=== PATIENT | female | born 2000 | race African-American/Black ===

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

== ENCOUNTER → 2020-03-06 | Outpatient (CLI) | payer OTHER ==
[~2020-03-06] MED LIST: AMOX1TAB61 PO
--- NOTE | 2020-03-06 16:37 | RAD ---
EXAM: Ultrasound OB Greater than 14 weeks INDICATION: Reason: SMALL FOR DATES / Spl. Instructions: / History: TECHNIQUE: Real-time obstetrical ultrasound was performed with permanent freeze-frame documentation. COMPARISON: 12/29/2019 OB ultrasound FINDINGS: POSITION: Cephalic HEART RATE: 127 bpm STEPHANIE: 10.4 cm PLACENTA: Posterior. Not low-lying CERVICAL LENGTH: 4.7 cm MATERNAL UTERUS: Unremarkable. MATERNAL ADNEXA: Unremarkable. AGE/DATES: Gestational Age by LMP: 23 weeks 0 days Gestation Age by US: 23 weeks 1 day EDC by LMP: 07/03/2020 EDC by US: 07/02/2020 WEIGHT: 534 grams +/- 79 grams PERCENTILE WEIGHT: 37% BIOMETRIC PARAMETERS: BPD: 5.9 cm corresponding with 24 weeks 0 days HC: 21.3 cm corresponding with 23 weeks 3 days AC: 18.1 cm corresponding with 23 weeks 0 days FL: 3.8 cm corresponding with 22 weeks 2 days ANATOMY: CARDIAC: Normal four chamber heart. Normal right and left ventricular outflow tracts. UMBILICAL CORD: Normal 3 vessel cord. Normal cord insertion. BRAIN: Unremarkable. NOSE/LIPS: Unremarkable. SPINE: Unremarkable. EXTREMITIES: Unremarkable. STOMACH: Unremarkable. KIDNEYS: Unremarkable. BLADDER: Unremarkable. IMPRESSION: Normal OB ultrasound demonstrating a single viable fetus in cephalic position. Estimated gestational age of 23 weeks and 1 day and EDC of July 02, 2020. Electronically signed by: Deangelo Mensah MD (03/06/2020 4:34 PM) [id number]
== END | disposition home or self-care (01) ==
LOC: US 11:40
PROVIDERS: ATTEND Family Medicine
DX: Z34.92 Encounter for supervision of normal pregnancy, unspecified, second trimester (principal); Z3A.23 23 weeks gestation of pregnancy
CPT/HCPCS: 76805

== ENCOUNTER 2020-06-17 05:32 | Inpatient (IN) | payer OTHER ==
[~2020-06-17] VITALS: Ht 167.6 cm; Wt 54.9 kg
[2020-06-17] MEDS ORDERED: IV RINGERS,LACTATED 1000ML 1,000 ML IV PRN (05:45)
[2020-06-17] MEDS ORDERED: 0.9 % SODIUM CHLORIDE 10 ML DISP.SYRIN. IV PRN (05:45)
[2020-06-17] MEDS ORDERED: OXYTOCIN 30 UNIT/500 ML PREMIX 500 ML IV PRN ×2 (05:45)
[2020-06-17] MEDS ORDERED: fentaNYL PF VIAL 100 MCG/2 ML VIAL IVP PRN (05:45)
[2020-06-17] MEDS ORDERED: IBUPROFEN 400 MG TABLET. PO PRN (05:45)
[2020-06-17] MEDS ORDERED: TERBUTALINE 1 MG/ML VIAL. SQ PRN (05:45)
[2020-06-17] MEDS ORDERED: LIDOCAINE 1% PF 30 ML VIAL. INJ PRN (05:45)
[2020-06-17] MEDS ORDERED: ACETAMINOPHEN 325 MG TABLET. PO PRN (05:45)
[2020-06-17] MEDS ORDERED: ONDANSETRON PF 4 MG/2 ML VIAL. IVP PRN (05:45)
[2020-06-17] MEDS ORDERED: BUTORPHANOL 2 MG/ML VIAL. IVP PRN ×2 (05:45)
[2020-06-17 06:15] VITALS: BP 115/70
[2020-06-17 07:10] LABS: BASO # 0.1 x10^3/uL (0.0-0.2); BASO % 1 % (0-3); EOS # 0.2 x10^3/uL (0.0-0.7); EOS % 2 % (0-3); HEMATOCRIT 31.8 % (36.0-47.0); HEMOGLOBIN 10.6 g/dL (12.0-15.5); LYMPH # 2.3 x10^3/uL (1.0-4.8); LYMPH % 27 % (24-48); MEAN CORPUSCULAR HEMOGLOBIN 30 pg (25-35); MEAN CORPUSCULAR HGB CONC 33 g/dL (31-37); MEAN CORPUSCULAR VOLUME 89 fL (79-100); MONO # 0.8 x10^3/uL (0.0-1.1); MONO % 9 % (0-9); NEUT # 5.2 x10^3/uL (1.8-7.7); NEUT % 61 % (31-73); PLATELET COUNT 250 x10^3/uL (140-400); RED BLOOD COUNT 3.58 x10^6/uL (3.50-5.40); RED CELL DISTRIBUTION WIDTH 14.4 % (11.5-14.5); WHITE BLOOD COUNT 8.5 x10^3/uL (4.0-11.0)
[2020-06-17 07:17] LABS: BILIRUBIN,URINE NEGATIVE (NEG); CLARITY,URINE CLEAR; COLOR,URINE YELLOW; NITRITE,URINE NEGATIVE (NEG); PROTEIN,URINE NEGATIVE (NEG-TRACE)
[2020-06-17 07:33] LABS: BACTERIA,URINE FEW /HPF (0-FEW); RBC,URINE 0 /HPF (0-2); WBC,URINE 0 /HPF (0-4)
--- NOTE | 2020-06-17 08:27 | RAD ---
Biophysical profile: Clinical indications: Decreased movement.. Findings: A single intrauterine is present in the cephalic position. heart rate is 14 3. breathing movements: 2. motion: 2. tone: 2. Amniotic fluid volume: 2. Therefore, the biophysical profile score is 8 out of 8. Cervix-cannot visualize. STEPHANIE using the 4 quadrant method is 9.3 cm. Average gestational age is 37 weeks 5 days with an EDC of July 03, 2020. Estimated weight is 7 pounds and 7 ounces. Grade 3 anterior and fundal and right lateral placenta is seen. Impression: Biophysical profile score is 8 out of 8. Electronically signed by: Jian Laboy MD (06/17/2020 8:24 AM) [id number]
[2020-06-17 10:13] LABS: % EOS 3 % (0-5); % LYMPHS 27 % (24-48); % MONOS 4 % (0-10); % MYELOS 1 % (0-0); % SEGS 65 % (35-66); PLT ESTIMATE ADEQUATE (ADEQUATE)
--- NOTE | 2020-06-17 11:46 | RAD ---
EXAM: Ultrasound OB Greater than 14 weeks INDICATION: Reason: SIZE/DATES / Spl. Instructions: / History: TECHNIQUE: Real-time obstetrical ultrasound was performed with permanent freeze-frame documentation. COMPARISON: None. FINDINGS: POSITION: Cephalic HEART RATE: 143 bpm STEPHANIE: 9.3 cm PLACENTA: Anterior CERVICAL LENGTH: Not well assessed MATERNAL UTERUS: Unremarkable. MATERNAL ADNEXA: Unremarkable. AGE/DATES: Gestational Age by LMP: 37 weeks 5 days Gestation Age by US: 37 weeks 5 days EDC by LMP: July 03, 2020 EDC by US: July 03, 2020 WEIGHT: 3378 grams +/- 500 grams PERCENTILE WEIGHT: 61% BIOMETRIC PARAMETERS: BPD: 9.5 cm corresponding with 38 weeks 6 days HC: 32.7 cm corresponding with 37 weeks 1 day AC: 34.9 cm corresponding with 38 weeks 5 days FL: 7.1 cm corresponding with 36 weeks 2 days ANATOMY: anatomy not assessed at this visit. IMPRESSION: OB ultrasound demonstrating a single viable fetus in cephalic position at 37 weeks 5 days and an zackary mated delivery date of July 03, 2020. Electronically signed by: Deangelo Mensah MD (06/17/2020 11:44 AM) [id number]
--- NOTE | 2020-06-17 19:15 | NUR ---
Patient admitted to [facility] L&D for suspected IUGR. After MD reviewed pt. previous sonograms it was found that pt. is on track with a due date of 07/02/20. An NST and BPP was completed. Pt. was discharged with passing NST and BPP to follow up with Dr. Burnett on 06/30/20.
--- NOTE | 2020-07-03 13:19 | PDOC1 ---
OB - History Hx of Present Care: Good Care Ultrasounds: Normal mid trimester US Obstetrical Complications: None Medical Complications: None Past Family/Social History * Past Medical, Surgical, Family and Obstetric Histories reviewed from chart. Rubella: Immune RPR/VDRL: Negative GBS Status: Negative HBsAG: Negative OB - Chief Complaint & HPI Date of Admission: Date of Admission: Jun 17, 2020 at 05:32 This is a short stay summary dictation. This patient was originally scheduled for induction with due date by last menstrual period of 06/19/2020 but during evaluation it was discovered that she had an early sonogram confirming her due date to be July 03, 2020. Due to these findings patient's induction was canceled and follow-up evaluations were planned. Patient did have a biophysical profile with sonogram which was normal 8 out of 8. During hospital evaluation patient was discovered to be COVID-19 positive. Patient was discharged to follow-up in office for continued care. Chief Complaint/History : 1 Para: 0 EDC: Jul 03, 2020 Reason for admission: induction of labor Admission Nurse Assessment Rev: Yes OB - Admission Exam Physical Exam HEENT: Normal Heart: Regular Rate Lungs: Clear Abdomen: Gravid Reflexes: Normal Cervical Dilatation: 2cm Effacement: 50% Station: -2 Membranes: Intact Accelerations: Accelerations Present Decelerations: No decelerations Residential Variability: Moderate SHAYE READ MD Jul 03, 2020 13:19
== END 2020-06-17 09:00 | disposition home or self-care (01) | DRG 831 ==
LOC: 3 SO LND 05:32
PROVIDERS: ADMIT Family Medicine; ATTEND Family Medicine
DX: O98.513 Other viral diseases complicating pregnancy, third trimester (principal); U07.1 COVID-19; Z3A.37 37 weeks gestation of pregnancy
CPT/HCPCS: 36415; 59025; 76815; 76819; 81001; 85007; 85025; 86592; 86850; 86900; 86901; 87086; 87426; G0378

== ENCOUNTER 2020-06-24 22:24 | Observation (INO) | payer OTHER ==
[2020-06-24] MEDS ORDERED: IV RINGERS,LACTATED 1000ML 1,000 ML IV PRN (22:45)
[2020-06-24] MEDS ORDERED: ACETAMINOPHEN 325 MG TABLET. PO PRN (22:45)
[2020-06-24] MEDS ORDERED: ONDANSETRON PF 4 MG/2 ML VIAL. IVP PRN (22:45)
[2020-06-24 23:01] LABS: BILIRUBIN,URINE NEGATIVE (NEG); CLARITY,URINE CLEAR; COLOR,URINE YELLOW; NITRITE,URINE NEGATIVE (NEG); PROTEIN,URINE NEGATIVE (NEG-TRACE); UROBILINOGEN,URINE 0.2 mg/dL (0.2 mg/dL)
[2020-06-24 23:02] LABS: RBC,URINE 0 /HPF (0-2)
[2020-06-24 23:03] LABS: BACTERIA,URINE 0 /HPF (0-FEW)
[2020-06-24 23:04] LABS: BARBITURATES NEG (NEG); BENZODIAZEPINES NEG (NEG); CANNABINOIDS NEG (NEG); COCAINE NEG (NEG); METHADONE NEG (NEG); OPIATES NEG (NEG); PHENCYCLIDINE NEG (NEG)
[2020-06-24 23:06] LABS: AMPHETAMINE/METHAMPHETAMINE NEG (NEG)
[2020-06-25] MEDS ORDERED: guaiFENesin DM 200MG/20MG 10 ML SYRUP PO PRN (00:30)
== END 2020-06-25 01:00 | disposition home or self-care (01) ==
LOC: 3 SO LND 22:24
PROVIDERS: ADMIT Family Medicine; ATTEND Family Medicine
DX: O62.9 Abnormality of forces of labor, unspecified (principal); O21.2 Late vomiting of pregnancy; Z3A.38 38 weeks gestation of pregnancy; Z79.899 Other long term (current) drug therapy
CPT/HCPCS: 59025; 80307; 81001; G0378; G0379

== ENCOUNTER 2020-06-27 21:09 | Inpatient (IN) | payer OTHER ==
[~2020-06-27] VITALS: Ht 167.6 cm; Wt 53.5 kg
[2020-06-27] MEDS ORDERED: BUTORPHANOL 2 MG/ML VIAL. IVP PRN (21:30)
[2020-06-27] MEDS ORDERED: fentaNYL PF VIAL 100 MCG/2 ML VIAL IVP PRN (21:30)
[2020-06-27] MEDS ORDERED: OXYTOCIN 30 UNIT/500 ML PREMIX 500 ML IV PRN (21:30)
[2020-06-27] MEDS ORDERED: 0.9 % SODIUM CHLORIDE 10 ML DISP.SYRIN. IV PRN (21:30)
[2020-06-27] MEDS ORDERED: ACETAMINOPHEN 325 MG TABLET. PO PRN (21:30)
[2020-06-27] MEDS ORDERED: TERBUTALINE 1 MG/ML VIAL. SQ PRN (21:30)
[2020-06-27] MEDS ORDERED: LIDOCAINE 1% PF 30 ML VIAL. INJ PRN (21:30)
[2020-06-27] MEDS ORDERED: ONDANSETRON PF 4 MG/2 ML VIAL. IVP PRN (21:30)
[2020-06-27] MEDS ORDERED: IV RINGERS,LACTATED 1000ML 1,000 ML IV PRN (21:30)
[2020-06-27] MEDS ORDERED: IBUPROFEN 400 MG TABLET. PO PRN (21:30)
[2020-06-27] MEDS: IV RINGERS,LACTATED 1000ML 1,000 ML IV PRN (21:46)
[2020-06-27 21:57] LABS: BASO % 1 % (0-3); EOS % 0 % (0-3); HEMATOCRIT 40.5 % (36.0-47.0); HEMOGLOBIN 13.5 g/dL (12.0-15.5); LYMPH # 1.4 x10^3/uL (1.0-4.8); LYMPH % 15 % (24-48); MEAN CORPUSCULAR HEMOGLOBIN 30 pg (25-35); MEAN CORPUSCULAR HGB CONC 33 g/dL (31-37); MEAN CORPUSCULAR VOLUME 90 fL (79-100); MONO # 1.4 x10^3/uL (0.0-1.1); MONO % 14 % (0-9); NEUT # 6.8 x10^3/uL (1.8-7.7); NEUT % 71 % (31-73); PLATELET COUNT 259 x10^3/uL (140-400); RED BLOOD COUNT 4.51 x10^6/uL (3.50-5.40); RED CELL DISTRIBUTION WIDTH 15.3 % (11.5-14.5); WHITE BLOOD COUNT 9.6 x10^3/uL (4.0-11.0)
[2020-06-27 22:47] LABS: % BANDS 12 % (0-9); % LYMPHS 15 % (24-48); % METAS 2 % (0-0); % MONOS 12 % (0-10); % SEGS 59 % (35-66); NUCLEATED RBC 2; PLT ESTIMATE ADEQUATE (ADEQUATE)
[2020-06-27 22:48] LABS: BURR CELLS PRESENT
--- NOTE | 2020-06-27 23:38 | PDOC1 ---
OB - History Hx of Present Care: Good Care Ultrasounds: Normal mid trimester US Obstetrical Complications: Other (Covid 19 + 06/17/2020) Medical Complications: None Past Family/Social History * Past Medical, Surgical, Family and Obstetric Histories reviewed from chart. Blood Type: A+ Rubella: Immune RPR/VDRL: Negative GBS Status: Negative HBsAG: Negative OB - Chief Complaint & HPI Date of Admission: Date of Admission: Jun 27, 2020 at 21:28 Chief Complaint/History : 1 Para: 0 EDC: Jul 02, 2020 Reason for admission: active labor Admission Nurse Assessment Rev: Yes OB - Admission Exam Physical Exam HEENT: Normal Heart: Regular Rate Lungs: Clear Abdomen: Gravid Reflexes: Normal Cervical Dilatation: 5cm Effacement: 100% Station: -1 Membranes: Intact Amniotic Fluid: Clear Heart Rate: Normal Accelerations: Accelerations Present Decelerations: Early decelerations Short Term Variability: Present Multicultural Internship Variability: Moderate Contractions on Admission: < 5 Minutes Apart Intensity: SHAYE Durbin MD Jun 27, 2020 23:38
[2020-06-28] VITALS (24 sets, daily range): BP systolic 103–138; BP diastolic 66–93
[2020-06-28] MEDS ORDERED: MAG HYDROX/ALUMINUM HYD/SIMETH 30 ML ORAL.SUSP PO PRN (00:45)
[2020-06-28] MEDS ORDERED: MAGNESIUM HYDROXIDE 2,400 MG/30 ML ORAL.SUSP. PO PRN (00:45)
[2020-06-28] MEDS ORDERED: 0.9 % SODIUM CHLORIDE 10 ML DISP.SYRIN. IV PRN (00:45)
[2020-06-28] MEDS ORDERED: HYDROcodone/APAP 5/325MG 1 TAB TABLET PO PRN ×2 (00:45)
[2020-06-28] MEDS ORDERED: BENZOCAINE 20% TOPICAL AEROSOL SPRAY 57GM CAN. TP PRN (00:45)
[2020-06-28] MEDS ORDERED: diphenhydrAMINE HCL 25 MG CAPSULE PO PRN (00:45)
[2020-06-28] MEDS ORDERED: PHENYLEPH/MINERAL OIL/PETROLAT RECTAL OINTMENT TUBE. RC PRN (00:45)
[2020-06-28] MEDS ORDERED: DOCUSATE SODIUM 100 MG CAPSULE. PO PRN (00:45)
[2020-06-28] MEDS ORDERED: ACETAMINOPHEN 325 MG TABLET. PO PRN (00:45)
[2020-06-28] MEDS ORDERED: OXYTOCIN 30 UNIT/500 ML PREMIX 500 ML IV PRN (00:45)
[2020-06-28] MEDS ORDERED: ZOLPIDEM 5 MG TABLET. PO PRN (00:45)
[2020-06-28] MEDS ORDERED: TDaP (Adacel) per PROTOCOL. MC PRN (00:45)
[2020-06-28] MEDS ORDERED: SIMETHICONE 80 MG TAB.CHEW PO PRN (00:45)
[2020-06-28] MEDS ORDERED: HYDROCORTISONE 1% TOPICAL OINTMENT 30GM TUBE. TP PRN (00:45)
--- NOTE | 2020-06-28 00:45 | OP ---
DATE OF SURGERY: 06/27/2020 DELIVERY NOTE CLINICAL COURSE: This patient is a 20-year-old, , -[place] female admitted with labor pains. She was seen for a biophysical profile on 06/17/2020 in preparation for possible induction. This returned normal, but routine COVID testing was done and the patient was positive for COVID-19. She was seen in possible labor on 06/24/2020 and treated for mild dehydration and did not progress in labor at that time until return to the hospital on 06/27/2020. The patient had no other complications or risks. The patient was 39 weeks and 2 days with EDC of 07/02/2020. She was admitted by nursing staff and found to have dilatation of 5 with active labor at -1 station. She was reported to be having early decels due to rapid labor. Shortly after arrival and stabilization, she was found to be 8 cm and I was called in for delivery. Upon arrival, the patient was complete and pushing and infant's heart tones were down. was on perineum, but ineffective pushing was noted after 2 contractions. Forceps were applied and was immediately delivered. There was spontaneous breathing activity. Head was suctioned and the shoulders were delivered and infant was completely delivered in the OA presentation with low outlet forceps. Cord was transected and infant was handed off to nurse practitioner. Resuscitative efforts were immediately begun. Cord pHs were obtained. Cord blood was then obtained. Upon delivery of the infant, it was noted that placenta immediately followed, consistent with suspected terminal abruption. Placenta was sent to pathology for evaluation. 's Apgars were 3, 5 and 5; and pH returned with a pH of 6.8. Infant was holding oxygen saturations, but continued to exhibit poor tone. This improved after 27 minutes. Plans to transfer the patient to ICU at [facility] were made and Neonatology assumed care of the infant. There was a left periurethral laceration, was sutured with 3-0 chromic. Again, placenta was delivered spontaneously immediately with the of the infant. The uterus was firm with Pitocin and palpation. There was approximately 250 mL of blood loss. Mother was to recovery in stable condition. Medical complications of delivery were explained to mother and father of baby. Routine postdelivery care was initiated. SHAYE READ MD DR: Marcia JOB#: [id number] / [id number]
[2020-06-28] MEDS ORDERED: IBUPROFEN 400 MG TABLET. PO SCH (06:00)
[2020-06-28] MEDS: FERROUS SULFATE 325 MG TABLET. PO SCH (08:28)
[2020-06-28] MEDS: MULTIVITAMIN with MINERAL TABLET. PO SCH (08:30)
[2020-06-28 10:05] LABS: ALBUMIN 2.1 g/dL (3.4-5.0); ALBUMIN/GLOBULIN RATIO 0.6 (1.0-1.7); CALCIUM 9.8 mg/dL (8.5-10.1); CREATININE 2.7 mg/dL (0.6-1.0); GFR 27.2; POTASSIUM 4.6 mmol/L (3.5-5.1); TOTAL PROTEIN 5.9 g/dL (6.4-8.2)
--- NOTE | 2020-06-28 11:46 | PDOC ---
PROGRESS NOTES Date of Service DATE: 06/28/20 TIME: 11:40 Subjective Subjective Patient w/o complaint. New labs show acute renal failure and elevated LFTs. Case D/W Dr. Walden Objective Objective Vital Signs Date Time Temp Pulse Resp B/P (MAP) Pulse Ox O2 Delivery O2 Flow Rate FiO2 06/28/20 06:30 98.3 93 16 104/69 (81) 100 Room Air 98.3 Intake and Output0 06/28/20 07:00 Intake Total 200 ml Balance 200 ml Intake Oral 200 ml Physical Exam Abdomen: Normal bowel sounds Heart: Regular rate Extremities: No edema General: Alert, Other (Sleepy and tired) HEENT: PERRLA, Other (Sclera icteric) Lungs: Clear to auscultation Assessment Assessment PPD # 1 Covid 19 Pre-eclampsia liver failure ARF Plan Plan of Care Start Mag Consult ID Consult Nephrology Consult GI Consult OB Recheck labs Comment Review of Relevant I have reviewed the following items cecilia (where applicable) has been applied. Labs Laboratory Tests Test 06/27/20 21:30 06/28/20 09:15 White Blood Count 9.6 x10^3/uL (4.0-11.0) Red Blood Count 4.51 x10^6/uL (3.50-5.40) Hemoglobin 13.5 g/dL (12.0-15.5) Hematocrit 40.5 % (36.0-47.0) Mean Corpuscular Volume 90 fL (79-100) Mean Corpuscular Hemoglobin 30 pg (25-35) Mean Corpuscular Hemoglobin Concent 33 g/dL (31-37) Red Cell Distribution Width 15.3 % (11.5-14.5) Platelet Count 259 x10^3/uL (140-400) Neutrophils (%) (Auto) 71 % (31-73) Lymphocytes (%) (Auto) 15 % (24-48) Monocytes (%) (Auto) 14 % (0-9) Eosinophils (%) (Auto) 0 % (0-3) Basophils (%) (Auto) 1 % (0-3) Neutrophils # (Auto) 6.8 x10^3/uL (1.8-7.7) Lymphocytes # (Auto) 1.4 x10^3/uL (1.0-4.8) Monocytes # (Auto) 1.4 x10^3/uL (0.0-1.1) Eosinophils # (Auto) 0.0 x10^3/uL (0.0-0.7) Basophils # (Auto) 0.0 x10^3/uL (0.0-0.2) Segmented Neutrophils % 59 % (35-66) Band Neutrophils % 12 % (0-9) Lymphocytes % 15 % (24-48) Monocytes % 12 % (0-10) Metamyelocytes % 2 % (0-0) Nucleated Red Blood Cells 2 Platelet Estimate Adequate (ADEQUATE) Large Platelets Present Tryon Cells Present Treponema pallidum Antibody Nonreactive (Nonreactive) SARS-CoV-2 Antigen (Rapid) Negative (NEGATIVE) Sodium Level 138 mmol/L (136-145) Potassium Level 4.6 mmol/L (3.5-5.1) Chloride Level 108 mmol/L (98-107) Carbon Dioxide Level 15 mmol/L (21-32) Anion Gap 15 (6-14) Blood Urea Nitrogen 12 mg/dL (7-20) Creatinine 2.7 mg/dL (0.6-1.0) Estimated GFR (Cockcroft-Gault) 27.2 BUN/Creatinine Ratio 4 (6-20) Glucose Level 73 mg/dL (70-99) Calcium Level 9.8 mg/dL (8.5-10.1) Total Bilirubin 8.0 mg/dL (0.2-1.0) Aspartate Amino Transf (AST/SGOT) 496 U/L (15-37) Alanine Aminotransferase (ALT/SGPT) 422 U/L (14-59) Alkaline Phosphatase 643 U/L (46-116) Total Protein 5.9 g/dL (6.4-8.2) Albumin 2.1 g/dL (3.4-5.0) Albumin/Globulin Ratio 0.6 (1.0-1.7) Laboratory Tests Test 06/27/20 21:30 06/28/20 09:15 White Blood Count 9.6 x10^3/uL (4.0-11.0) Red Blood Count 4.51 x10^6/uL (3.50-5.40) Hemoglobin 13.5 g/dL (12.0-15.5) Hematocrit 40.5 % (36.0-47.0) Mean Corpuscular Volume 90 fL (79-100) Mean Corpuscular Hemoglobin 30 pg (25-35) Mean Corpuscular Hemoglobin Concent 33 g/dL (31-37) Red Cell Distribution Width 15.3 % (11.5-14.5) Platelet Count 259 x10^3/uL (140-400) Neutrophils (%) (Auto) 71 % (31-73) Lymphocytes (%) (Auto) 15 % (24-48) Monocytes (%) (Auto) 14 % (0-9) Eosinophils (%) (Auto) 0 % (0-3) Basophils (%) (Auto) 1 % (0-3) Neutrophils # (Auto) 6.8 x10^3/uL (1.8-7.7) Lymphocytes # (Auto) 1.4 x10^3/uL (1.0-4.8) Monocytes # (Auto) 1.4 x10^3/uL (0.0-1.1) Eosinophils # (Auto) 0.0 x10^3/uL (0.0-0.7) Basophils # (Auto) 0.0 x10^3/uL (0.0-0.2) Segmented Neutrophils % 59 % (35-66) Band Neutrophils % 12 % (0-9) Lymphocytes % 15 % (24-48) Monocytes % 12 % (0-10) Metamyelocytes % 2 % (0-0) Nucleated Red Blood Cells 2 Platelet Estimate Adequate (ADEQUATE) Large Platelets Present Daljit Cells Present Treponema pallidum Antibody Nonreactive (Nonreactive) SARS-CoV-2 Antigen (Rapid) Negative (NEGATIVE) Sodium Level 138 mmol/L (136-145) Potassium Level 4.6 mmol/L (3.5-5.1) Chloride Level 108 mmol/L (98-107) Carbon Dioxide Level 15 mmol/L (21-32) Anion Gap 15 (6-14) Blood Urea Nitrogen 12 mg/dL (7-20) Creatinine 2.7 mg/dL (0.6-1.0) Estimated GFR (Cockcroft-Gault) 27.2 BUN/Creatinine Ratio 4 (6-20) Glucose Level 73 mg/dL (70-99) Calcium Level 9.8 mg/dL (8.5-10.1) Total Bilirubin 8.0 mg/dL (0.2-1.0) Aspartate Amino Transf (AST/SGOT) 496 U/L (15-37) Alanine Aminotransferase (ALT/SGPT) 422 U/L (14-59) Alkaline Phosphatase 643 U/L (46-116) Total Protein 5.9 g/dL (6.4-8.2) Albumin 2.1 g/dL (3.4-5.0) Albumin/Globulin Ratio 0.6 (1.0-1.7) Medications Current Medications Ringer's Solution 1,000 ml @ 125 mls/hr Q8H PRN IV hydration Last administered on 06/27/20at 21:46; Start 06/27/20 at 21:30 Acetaminophen (Tylenol) 650 mg PRN Q6HRS PRN PO MILD PAIN, TEMP > 100.5'F; Start 06/27/20 at 21:30; Stop 06/28/20 at 00:42; Status DC Ondansetron HCl (Zofran) 4 mg PRN Q6HRS PRN IVP NAUSEA 1ST CHOICE; Start 06/27/20 at 21:30; Stop 06/28/20 at 00:42; Status DC Sodium Chloride (Normal Saline Flush) 3 ml QSHIFT PRN IV AFTER MEDS AND BLOOD DRAWS; Start 06/27/20 at 21:30; Stop 06/28/20 at 00:42; Status DC Ringer's Solution 1,000 ml @ 125 mls/hr Q8H PRN IV hydration; Start 06/27/20 at 21:30; Stop 06/28/20 at 00:42; Status DC Butorphanol Tartrate (Stadol) 2 mg PRN Q1HR PRN IVP Severe labor pain; Start 06/27/20 at 21:30; Stop 06/28/20 at 00:42; Status DC Fentanyl Citrate (Fentanyl 2ml Vial) 100 mcg PRN Q30MIN PRN IVP Severe pain; Start 06/27/20 at 21:30; Stop 06/28/20 at 00:42; Status DC Terbutaline Sulfate (Brethine) 0.25 mg 1X PRN PRN SQ SEE COMMENTS; Start 06/27/20 at 21:30; Stop 06/28/20 at 00:42; Status DC Lidocaine HCl (Xylocaine 1% Pf 30ml Vial) 30 ml 1X PRN PRN INJ SEE COMMENTS Last administered on 06/27/20at 22:46; Start 06/27/20 at 21:30; Stop 06/28/20 at 00:42; Status DC Oxytocin 500 ml @ 0 mls/hr CONT PRN PRN IV Post delivery bleeding Last administered on 06/27/20at 21:48; Start 06/27/20 at 21:30; Stop 06/28/20 at 00:42; Status DC Ibuprofen (Motrin) 800 mg PRN Q6HRS PRN PO MODERATE PAIN 4-6 Last administered on 06/28/20at 00:01; Start 06/27/20 at 21:30; Stop 06/28/20 at 00:42; Status DC Sodium Chloride (Normal Saline Flush) 10 ml QSHIFT PRN IV AFTER MEDS AND BLOOD DRAWS; Start 06/28/20 at 00:45 Oxytocin 500 ml @ 62.5 mls/hr CONT PRN IV SEE I/O RECORD; Start 06/28/20 at 00:45; Stop 06/28/20 at 08:44; Status DC Acetaminophen (Tylenol) 650 mg PRN Q6HRS PRN PO MILD PAIN / TEMP > 100.3'F; Start 06/28/20 at 00:45 Ibuprofen (Motrin) 800 mg Q8HRS PO Last administered on 06/28/20at 08:31; Start 06/28/20 at 06:00 Docusate Sodium (Colace) 100 mg PRN BID PRN PO HARD STOOLS; Start 06/28/20 at 00:45 Magnesium Hydroxide (Milk Of Magnesia) 2,400 mg PRN DAILY PRN PO CONSTIPATION; Start 06/28/20 at 00:45 Al Hydroxide/Mg Hydroxide (Mylanta Plus Xs) 30 ml PRN Q4HRS PRN PO HEARTBURN / GAS; Start 06/28/20 at 00:45 Simethicone (Gas-X) 80 mg PRN AFTMEALHC PRN PO GAS / BLOATING; Start 06/28/20 at 00:45 Diphenhydramine HCl (Benadryl) 25 mg PRN Q6HRS PRN PO ITCHING; Start 06/28/20 at 00:45 Benzocaine (Americaine) 1 spray PRN QID PRN TP TOPICAL PAIN; Start 06/28/20 at 00:45 Phenyleph/Shark Oil/Min Oil/Petrol (Preparation H) 1 matilda PRN QID PRN RC RECTAL PAIN; Start 06/28/20 at 00:45 Hydrocortisone (Cortaid) 1 matilda PRN QID PRN TP PERINEAL PAIN; Start 06/28/20 at 00:45 Ferrous Sulfate (Feosol) 325 mg BIDWMEALS PO ; Start 06/29/20 at 08:00 Zolpidem Tartrate (Ambien) 5 mg PRN QHS PRN PO INSOMNIA, MAY REPEAT X1; Start 06/28/20 at 00:45 Info (Do NOT chart on this placeholder) 1 ea 1X PRN PRN MC SEE COMMENTS; Start 06/28/20 at 00:45 Multivitamins (Thera M Plus) 1 tab DAILY PO Last administered on 06/28/20at 08:30; Start 06/28/20 at 09:00 Acetaminophen/ Hydrocodone Bitart (Lortab 5/325) 1 tab PRN Q4HRS PRN PO MILD PAIN 1-3; Start 06/28/20 at 00:45 Acetaminophen/ Hydrocodone Bitart (Lortab 5/325) 2 tab PRN Q4HRS PRN PO MOD ERATE PAIN, SEVERE PAIN; Start 06/28/20 at 00:45 Aspirin (Ecotrin) 81 mg DAILYWBKFT PO ; Start 06/28/20 at 12:00 Active Scripts Active Augmentin 875-125 Tablet (Amoxicillin/Potassium Clav) 1 Each Tablet 1 Tab PO BID 10 Days Vitals/I & O Vital Sign - Last 24 Hours 06/28/20 06/28/20 06/28/20 06/28/20 00:31 01:50 02:46 06:30 Temp 98.3 98.1 97.7 98.3 98.3 98.1 97.7 98.3 Pulse 100 88 70 93 Resp 18 18 20 16 B/P (MAP) 124/74 (91) 134/78 (96) 138/80 (99) 104/69 (81) Pulse Ox 98 99 100 100 O2 Delivery Room Air Room Air Room Air Room Air Intake and Output 06/27/20 06/27/20 06/28/20 15:00 23:00 07:00 Intake Total 200 ml Balance 200 ml Justifications for Admission Other Justification SHAYE READ MD Jun 28, 2020 11:46
[2020-06-28 11:55] LABS: BASO % 0 % (0-3); EOS % 0 % (0-3); HEMATOCRIT 37.4 % (36.0-47.0); HEMOGLOBIN 12.2 g/dL (12.0-15.5); LYMPH % 12 % (24-48); MEAN CORPUSCULAR HEMOGLOBIN 30 pg (25-35); MEAN CORPUSCULAR HGB CONC 33 g/dL (31-37); MEAN CORPUSCULAR VOLUME 91 fL (79-100); MONO # 1.9 x10^3/uL (0.0-1.1); MONO % 12 % (0-9); NEUT # 12.2 x10^3/uL (1.8-7.7); NEUT % 76 % (31-73); PLATELET COUNT 211 x10^3/uL (140-400); RED BLOOD COUNT 4.13 x10^6/uL (3.50-5.40); RED CELL DISTRIBUTION WIDTH 15.5 % (11.5-14.5); WHITE BLOOD COUNT 16.1 x10^3/uL (4.0-11.0)
[2020-06-28] MEDS: MAGNESIUM SULFATE 20GM 500 ML IV SCH (12:18)
[2020-06-28] MEDS: IV RINGERS,LACTATED 1000ML 1,000 ML IV PRN (12:20)
--- NOTE | 2020-06-28 12:39 | NUR ---
Magnesium 4 gm loading dose started.
[2020-06-28] MEDS: ASPIRIN ENTERIC COATED 81 MG TABLET.DR. PO SCH (12:46)
[2020-06-28] MEDS ORDERED: MAGNESIUM SULFATE 4GM 100 ML IV ONE (13:00)
--- NOTE | 2020-06-28 13:16 | NUR ---
Magnesium 1gm/hr started. Pt. sleeping.
--- NOTE | 2020-06-28 13:35 | NUR ---
Pt. informed of plan to start Magnesium. Understanding verbalized.
--- NOTE | 2020-06-28 14:49 | PDOC2 ---
CONSULT Date of Consult Date of Consult DATE: 06/28/20 TIME: 14:23 Reason for Consult Reason for Consult: post preeclampsia Referring Physician Referring Physician: Dr. Burnett Identification/Chief Complaint Chief Complaint abd pain Source Source: Chart review, Patient History of Present Illness Reason for Visit: 20 y/o s/p with signs of severe post preeclampsia. LFT's in 400's and serum Cr 2.7. Pt. had rapid delivery with forceps assistance and evidence of placental abruption. Pt. was positive for Covid-19 on 06/17 asymptomatic. Past Medical History Cardiovascular: No pertinent hx Pulmonary: No pertinent hx Psych: No pertinent hx Rheumatologic: No pertinent hx Renal/: No pertinent hx Past Surgical History Past Surgical History: No pertinent history Social History ALCOHOL: none Drugs: None Current Medications Current Medications Current Medications Ringer's Solution 1,000 ml @ 125 mls/hr Q8H PRN IV hydration Last administered on 06/28/20at 12:20; Start 06/27/20 at 21:30 Acetaminophen (Tylenol) 650 mg PRN Q6HRS PRN PO MILD PAIN, TEMP > 100.5'F; Start 06/27/20 at 21:30; Stop 06/28/20 at 00:42; Status DC Ondansetron HCl (Zofran) 4 mg PRN Q6HRS PRN IVP NAUSEA 1ST CHOICE; Start 06/27/20 at 21:30; Stop 06/28/20 at 00:42; Status DC Sodium Chloride (Normal Saline Flush) 3 ml QSHIFT PRN IV AFTER MEDS AND BLOOD DRAWS; Start 06/27/20 at 21:30; Stop 06/28/20 at 00:42; Status DC Ringer's Solution 1,000 ml @ 125 mls/hr Q8H PRN IV hydration; Start 06/27/20 at 21:30; Stop 06/28/20 at 00:42; Status DC Butorphanol Tartrate (Stadol) 2 mg PRN Q1HR PRN IVP Severe labor pain; Start 06/27/20 at 21:30; Stop 06/28/20 at 00:42; Status DC Fentanyl Citrate (Fentanyl 2ml Vial) 100 mcg PRN Q30MIN PRN IVP Severe pain; Start 06/27/20 at 21:30; Stop 06/28/20 at 00:42; Status DC Terbutaline Sulfate (Brethine) 0.25 mg 1X PRN PRN SQ SEE COMMENTS; Start 06/27/20 at 21:30; Stop 06/28/20 at 00:42; Status DC Lidocaine HCl (Xylocaine 1% Pf 30ml Vial) 30 ml 1X PRN PRN INJ SEE COMMENTS Last administered on 06/27/20at 22:46; Start 06/27/20 at 21:30; Stop 06/28/20 at 00 :42; Status DC Oxytocin 500 ml @ 0 mls/hr CONT PRN PRN IV Post delivery bleeding Last administered on 06/27/20at 21:48; Start 06/27/20 at 21:30; Stop 06/28/20 at 00:42; Status DC Ibuprofen (Motrin) 800 mg PRN Q6HRS PRN PO MODERATE PAIN 4-6 Last administered on 06/28/20at 00:01; Start 06/27/20 at 21:30; Stop 06/28/20 at 00:42; Status DC Sodium Chloride (Normal Saline Flush) 10 ml QSHIFT PRN IV AFTER MEDS AND BLOOD DRAWS; Start 06/28/20 at 00:45 Oxytocin 500 ml @ 62.5 mls/hr CONT PRN IV SEE I/O RECORD; Start 06/28/20 at 00:45; Stop 06/28/20 at 08:44; Status DC Acetaminophen (Tylenol) 650 mg PRN Q6HRS PRN PO MILD PAIN / TEMP > 100.3'F; Start 06/28/20 at 00:45 Ibuprofen (Motrin) 800 mg Q8HRS PO Last administered on 06/28/20at 08:31; Start 06/28/20 at 06:00 Docusate Sodium (Colace) 100 mg PRN BID PRN PO HARD STOOLS; Start 06/28/20 at 00:45 Magnesium Hydroxide (Milk Of Magnesia) 2,400 mg PRN DAILY PRN PO CONSTIPATION; Start 06/28/20 at 00:45 Al Hydroxide/Mg Hydroxide (Mylanta Plus Xs) 30 ml PRN Q4HRS PRN PO HEARTBURN / GAS; Start 06/28/20 at 00:45 Simethicone (Gas-X) 80 mg PRN AFTMEALHC PRN PO GAS / BLOATING; Start 06/28/20 at 00:45 Diphenhydramine HCl (Benadryl) 25 mg PRN Q6HRS PRN PO ITCHING; Start 06/28/20 at 00:45 Benzocaine (Americaine) 1 spray PRN QID PRN TP TOPICAL PAIN; Start 06/28/20 at 00:45 Phenyleph/Shark Oil/Min Oil/Petrol (Preparation H) 1 matilda PRN QID PRN RC RECTAL PAIN; Start 06/28/20 at 00:45 Hydrocortisone (Cortaid) 1 matilda PRN QID PRN TP PERINEAL PAIN; Start 06/28/20 at 00:45 Ferrous Sulfate (Feosol) 325 mg BIDWMEALS PO ; Start 06/29/20 at 08:00 Zolpidem Tartrate (Ambien) 5 mg PRN QHS PRN PO INSOMNIA, MAY REPEAT X1; Start 06/28/20 at 00:45 Info (Do NOT chart on this placeholder) 1 ea 1X PRN PRN MC SEE COMMENTS; Start 06/28/20 at 00:45 Multivitamins (Thera M Plus) 1 tab DAILY PO Last administered on 06/28/20at 08:30; Start 06/28/20 at 09:00 Acetaminophen/ Hydrocodone Bitart (Lortab 5/325) 1 tab PRN Q4HRS PRN PO MILD PAIN 1-3; Start 06/28/20 at 00:45 Acetaminophen/ Hydrocodone Bitart (Lortab 5/325) 2 tab PRN Q4HRS PRN PO MODERATE PAIN, SEVERE PAIN; Start 06/28/20 at 00:45 Aspirin (Ecotrin) 81 mg DAILYWBKFT PO Last administered on 06/28/20at 12:46; Start 06/28/20 at 12:00 Magnesium Sulfate 500 ml @ 25 mls/hr Q20H IV Last administered on 06/28/20at 12:18; Start 06/28/20 at 12:00 Magnesium Sulfate 100 ml @ 25 mls/hr 1X ONCE IV Last administered on 06/28/20at 12:17; Start 06/28/20 at 13:00; Stop 06/28/20 at 16:59 Active Scripts Active Augmentin 875-125 Tablet (Amoxicillin/Potassium Clav) 1 Each Tablet 1 Tab PO BID 10 Days Allergies Allergies: Coded Allergies: No Known Drug Allergies (Unverified , 12/29/19) ROS General: YES: Fatigue, Malaise PSYCHOLOGICAL ROS: No: Anxiety, Behavioral Disorder, Concentration difficultie, Decreased libido, Depression, Disorientation, Hallucinations, Hostility, Irritablity, Memory difficulties, Mood Swings, Obsessive thoughts, Physical abuse, Sexual abuse, Sleep disturbances, Suicidal ideation, Other Eyes: No Blurry vision, No Decreased vision, No Double vision, No Dry eyes, No Excessive tearing, No Eye Pain, No Itchy Eyes, No Loss of vision, No Photophobia, No Scotomata, No Uses contacts, No Uses glasses, No Other HEENT: No: Heacaches, Visual Changes, Hearing change, Nasal congestion, Nasal discharge, Oral lesions, Sinus pain, Sore Throat, Epistaxis, Sneezing, Snoring, Tinnitus, Vertigo, Vocal changes, Other ALLERGY AND IMMUNOLOGY: No: Hives, Insect Bite Sensitivity, Itchy/Watery Eyes, Nasal Congestion, Post Nasal Drip, Seasonal Allergies, Other Hematological and Lymphatic: No: Bleeding Problems, Blood Clots, Blood Transfusions, Brusing, Night Sweats, Pallor, Swollen Lymph Nodes, Other ENDOCRINE: No: Breast Changes, Galactorrhea, Hair Pattern Changes, Hot Flashes, Malaise/lethargy, Mood Swings, Palpitations, Polydipsia/polyuria, Skin Changes, Temperature Intolerance, Unexpected Weight Changes, Other Breast: No New/Changing Breast Lumps, No Nipple changes, No Nipple discharge, No Other Respiratory: No: Cough, Hemoptysis, Orthopnea, Pleuritic Pain, Shortness of breath, SOB with excertion, Sputum Changes, Stridor, Tachypnea, Wheezing, Other Cardiovascular: No Chest Pain, No Palpitations, No Orthopnea, No Paroxysmal Noc. Dyspnea, No Edema, No Lt Headedness, No Other Gastrointestinal: Yes Abdominal Pain Genitourinary: No Dysuria, No Frequency, No Incontinence, No Hematuria, No Retention, No Discharge, No Urgency, No Pain, No Flank Pain, No Other, No , No , No , No , No , No , No Musculoskeletal: No Gait Disturbance, No Joint Pain, No Joint Stiffness, No Joint Swelling, No Muscle Pain, No Muscular Weakness, No Pain In:, No Swelling In:, No Other Skin: No Dry Skin, No Eczema, No Hair Changes, No Lumps, No Mole Changes, No Mottling, No Nail Changes, No Pruritus, No Rash, No Skin Lesion Changes, No Other, No Acne Physical Exam General: Alert, Oriented X3, Cooperative HEENT: Atraumatic Lungs: Clear to auscultation Heart: Regular rate Abdomen: Normal bowel sounds, Other (Hepatosplenomegaly) Extremities: No edema, Normal pulses Psych/Mental Status: Other (lathargic) Vitals VITALS Vital Signs Date Time Temp Pulse Resp B/P (MAP) Pulse Ox O2 Delivery O2 Flow Rate FiO2 06/28/20 13:16 99 22 116/67 (83) 06/28/20 12:00 97.8 100 Room Air 97.8 Labs Labs Laboratory Tests Test 06/27/20 21:30 06/28/20 09:15 White Blood Count 9.6 x10^3/uL (4.0-11.0) 16.1 x10^3/uL (4.0-11.0) Red Blood Count 4.51 x10^6/uL (3.50-5.40) 4.13 x10^6/uL (3.50-5.40) Hemoglobin 13.5 g/dL (12.0-15.5) 12.2 g/dL (12.0-15.5) Hematocrit 40.5 % (36.0-47.0) 37.4 % (36.0-47.0) Mean Corpuscular Volume 90 fL (79-100) 91 fL (79-100) Mean Corpuscular Hemoglobin 30 pg (25-35) 30 pg (25-35) Mean Corpuscular Hemoglobin Concent 33 g/dL (31-37) 33 g/dL (31-37) Red Cell Distribution Width 15.3 % (11.5-14.5) 15.5 % (11.5-14.5) Platelet Count 259 x10^3/uL (140-400) 211 x10^3/uL (140-400) Neutrophils (%) (Auto) 71 % (31-73) 76 % (31-73) Lymphocytes (%) (Auto) 15 % (24-48) 12 % (24-48) Monocytes (%) (Auto) 14 % (0-9) 12 % (0-9) Eosinophils (%) (Auto) 0 % (0-3) 0 % (0-3) Basophils (%) (Auto) 1 % (0-3) 0 % (0-3) Neutrophils # (Auto) 6.8 x10^3/uL (1.8-7.7) 12.2 x10^3/uL (1.8-7.7) Lymphocytes # (Auto) 1.4 x10^3/uL (1.0-4.8) 2.0 x10^3/uL (1.0-4.8) Monocytes # (Auto) 1.4 x10^3/uL (0.0-1.1) 1.9 x10^3/uL (0.0-1.1) Eosinophils # (Auto) 0.0 x10^3/uL (0.0-0.7) 0.0 x10^3/uL (0.0-0.7) Basophils # (Auto) 0.0 x10^3/uL (0.0-0.2) 0.0 x10^3/uL (0.0-0.2) Segmented Neutrophils % 59 % (35-66) Band Neutrophils % 12 % (0-9) Lymphocytes % 15 % (24-48) Monocytes % 12 % (0-10) Metamyelocytes % 2 % (0-0) Nucleated Red Blood Cells 2 Platelet Estimate Adequate (ADEQUATE) Large Platelets Present Criders Cells Present Treponema pallidum Antibody Nonreactive (Nonreactive) SARS-CoV-2 Antigen (Rapid) Negative (NEGATIVE) Sodium Level 138 mmol/L (136-145) Potassium Level 4.6 mmol/L (3.5-5.1) Chloride Level 108 mmol/L (98-107) Carbon Dioxide Level 15 mmol/L (21-32) Anion Gap 15 (6-14) Blood Urea Nitrogen 12 mg/dL (7-20) Creatinine 2.7 mg/dL (0.6-1.0) Estimated GFR (Cockcroft-Gault) 27.2 BUN/Creatinine Ratio 4 (6-20) Glucose Level 73 mg/dL (70-99) Calcium Level 9.8 mg/dL (8.5-10.1) Total Bilirubin 8.0 mg/dL (0.2-1.0) Aspartate Amino Transf (AST/SGOT) 496 U/L (15-37) Alanine Aminotransferase (ALT/SGPT) 422 U/L (14-59) Alkaline Phosphatase 643 U/L (46-116) Total Protein 5.9 g/dL (6.4-8.2) Albumin 2.1 g/dL (3.4-5.0) Albumin/Globulin Ratio 0.6 (1.0-1.7) Laboratory Tests Test 06/27/20 21:30 06/28/20 09:15 White Blood Count 9.6 x10^3/uL (4.0-11.0) 16.1 x10^3/uL (4.0-11.0) Red Blood Count 4.51 x10^6/uL (3.50-5.40) 4.13 x10^6/uL (3.50-5.40) Hemoglobin 13.5 g/dL (12.0-15.5) 12.2 g/dL (12.0-15.5) Hematocrit 40.5 % (36.0-47.0) 37.4 % (36.0-47.0) Mean Corpuscular Volume 90 fL (79-100) 91 fL (79-100) Mean Corpuscular Hemoglobin 30 pg (25-35) 30 pg (25-35) Mean Corpuscular Hemoglobin Concent 33 g/dL (31-37) 33 g/dL (31-37) Red Cell Distribution Width 15.3 % (11.5-14.5) 15.5 % (11.5-14.5) Platelet Count 259 x10^3/uL (140-400) 211 x10^3/uL (140-400) Neutrophils (%) (Auto) 71 % (31-73) 76 % (31-73) Lymphocytes (%) (Auto) 15 % (24-48) 12 % (24-48) Monocytes (%) (Auto) 14 % (0-9) 12 % (0-9) Eosinophils (%) (Auto) 0 % (0-3) 0 % (0-3) Basophils (%) (Auto) 1 % (0-3) 0 % (0-3) Neutrophils # (Auto) 6.8 x10^3/uL (1.8-7.7) 12.2 x10^3/uL (1.8-7.7) Lymphocytes # (Auto) 1.4 x10^3/uL (1.0-4.8) 2.0 x10^3/uL (1.0-4.8) Monocytes # (Auto) 1.4 x10^3/uL (0.0-1.1) 1.9 x10^3/uL (0.0-1.1) Eosinophils # (Auto) 0.0 x10^3/uL (0.0-0.7) 0.0 x10^3/uL (0.0-0.7) Basophils # (Auto) 0.0 x10^3/uL (0.0-0.2) 0.0 x10^3/uL (0.0-0.2) Segmented Neutrophils % 59 % (35-66) Band Neutrophils % 12 % (0-9) Lymphocytes % 15 % (24-48) Monocytes % 12 % (0-10) Metamyelocytes % 2 % (0-0) Nucleated Red Blood Cells 2 Platelet Estimate Adequate (ADEQUATE) Large Platelets Present Criders Cells Present Treponema pallidum Antibody Nonreactive (Nonreactive) SARS-CoV-2 Antigen (Rapid) Negative (NEGATIVE) Sodium Level 138 mmol/L (136-145) Potassium Level 4.6 mmol/L (3.5-5.1) Chloride Level 108 mmol/L (98-107) Carbon Dioxide Level 15 mmol/L (21-32) Anion Gap 15 (6-14) Blood Urea Nitrogen 12 mg/dL (7-20) Creatinine 2.7 mg/dL (0.6-1.0) Estimated GFR (Cockcroft-Gault) 27.2 BUN/Creatinine Ratio 4 (6-20) Glucose Level 73 mg/dL (70-99) Calcium Level 9.8 mg/dL (8.5-10.1) Total Bilirubin 8.0 mg/dL (0.2-1.0) Aspartate Amino Transf (AST/SGOT) 496 U/L (15-37) Alanine Aminotransferase (ALT/SGPT) 422 U/L (14-59) Alkaline Phosphatase 643 U/L (46-116) Total Protein 5.9 g/dL (6.4-8.2) Albumin 2.1 g/dL (3.4-5.0) Albumin/Globulin Ratio 0.6 (1.0-1.7) Assessment/Plan Assessment/Plan A: PPD#1 s/p Severe post preeclampsia P: Continue current care. REpeat labs at 1500 and evaluate for acute fatty liver disease. If labs worsen, then transfer to ICU and discuss with Nephrology about dialysis. Continue magnesium sulfate 24 hour. Thank you for consult. Will continue to follow. SALEEM SINGH Jr, MD Jun 28, 2020 14:49
[2020-06-28 14:56] LABS: BILIRUBIN,URINE NEGATIVE (NEG); CLARITY,URINE CLEAR; COLOR,URINE YELLOW; NITRITE,URINE NEGATIVE (NEG); PH,URINE 6.5 (<5.0-8.0); PROTEIN,URINE NEGATIVE (NEG-TRACE); UROBILINOGEN,URINE 0.2 mg/dL (0.2 mg/dL)
--- NOTE | 2020-06-28 15:03 | RAD ---
US ABDOMEN COMPLETE Realtime grayscale images of the abdomen with color and pulsed doppler utilized as appropriate. History: Reason: Renal failure abnormal LFTs / Spl. Instructions: / History: Comparison: None. Findings: The liver is normal in appearance and echogenicity. No intrahepatic biliary ductal dilatation or mas s is seen. Contracted gallbladder. No gallstones, pericholecystic fluid, or gallbladder wall thickeni ng are seen. The common bile duct is normal in diameter and measures 0.2 cm. Portal Vein flow is hep atopetal. The pancreas is normal in appearance, although the tail is not well visualized. The aorta and IVC are normal diameter where visualized. The right kidney is normal in appearance, measuring 9.0 cm in length. The left kidney is normal in ap pearance, measuring 8.4 cm in length. No hydronephrosis or perinephric fluid are seen bilaterally. The spleen is normal in appearance and measures 7.4 cm. Impression: No acute findings. No hydronephrosis or shadowing calculi. Electronically signed by: Wilmer Farmer MD (06/28/2020 3:01 PM) [id number]
[2020-06-28 15:14] LABS: BACTERIA,URINE 0 /HPF (0-FEW); WBC,URINE OCC /HPF (0-4)
[2020-06-28 15:24] LABS: BASO # 0.1 x10^3/uL (0.0-0.2); BASO % 0 % (0-3); EOS % 0 % (0-3); HEMATOCRIT 34.7 % (36.0-47.0); HEMOGLOBIN 11.4 g/dL (12.0-15.5); LYMPH # 1.8 x10^3/uL (1.0-4.8); LYMPH % 12 % (24-48); MEAN CORPUSCULAR HEMOGLOBIN 29 pg (25-35); MEAN CORPUSCULAR HGB CONC 33 g/dL (31-37); MEAN CORPUSCULAR VOLUME 90 fL (79-100); MONO # 1.8 x10^3/uL (0.0-1.1); MONO % 12 % (0-9); NEUT # 11.7 x10^3/uL (1.8-7.7); NEUT % 76 % (31-73); PLATELET COUNT 211 x10^3/uL (140-400); RED BLOOD COUNT 3.87 x10^6/uL (3.50-5.40); RED CELL DISTRIBUTION WIDTH 15.5 % (11.5-14.5); WHITE BLOOD COUNT 15.5 x10^3/uL (4.0-11.0)
[2020-06-28 15:33] LABS: BARBITURATES NEG (NEG); BENZODIAZEPINES NEG (NEG); CANNABINOIDS NEG (NEG); COCAINE NEG (NEG); METHADONE NEG (NEG); OPIATES NEG (NEG); PHENCYCLIDINE NEG (NEG)
[2020-06-28 15:34] LABS: AMPHETAMINE/METHAMPHETAMINE NEG (NEG)
[2020-06-28 15:42] LABS: ALBUMIN 1.9 g/dL (3.4-5.0); ALBUMIN/GLOBULIN RATIO 0.5 (1.0-1.7); CALCIUM 9.7 mg/dL (8.5-10.1); CREATININE 2.6 mg/dL (0.6-1.0); GFR 28.4; MAGNESIUM 4.6 mg/dL (1.8-2.4); POTASSIUM 4.3 mmol/L (3.5-5.1); TOTAL BILIRUBIN 7.4 mg/dL (0.2-1.0); TOTAL PROTEIN 5.4 g/dL (6.4-8.2)
[2020-06-28] MEDS: IV NORMAL SALINE 1000ML BAG 1,000 ML IV SCH (16:00)
--- NOTE | 2020-06-28 18:13 | PDOC2 ---
CONSULT Date of Consult Date of Consult DATE: 06/28/20 TIME: 18:06 Reason for Consult Reason for Consult: Renal failure Referring Physician Referring Physician: Matt Burnett Identification/Chief Complaint Chief Complaint None from the patient Source Source: Chart review, Patient History of Present Illness Reason for Visit: 20-year-old -Wallis[place] female with no significant past medical history. As noted in [employer] notes she is a G1, P1 who presented with signs of severe preeclampsia with elevated LFTs and TAMMY. She apparently needed " rapid delivery with forceps assistance and evidence of placental abruption" . Pt. was positive for Covid-19 on 06/17 is negative now and remains asymptomatic. She is noted to be somewhat lethargic and not a very good historian. Denies NSAID use nausea vomiting or diarrhea at home. Denies signs of dehydration as best reviewed with her. She seems somewhat disinterested in continuing a conversation with me. There is some question of possible lethargy. The nurses have questioned her significant other regarding the same and he claims that this is normal for her. She did receive some NSAIDs here which I have discontinued currently. Her baseline creatinine available to me was 0.7 as recently as December 2019. At presentation she was noted to have a creatinine of 2.6 and is down to 2.7 this afternoon. I have started her on IV fluids. Duque catheter has been placed and urine output is adequate but appears somewhat dark and discolored. Past Medical History Cardiovascular: No pertinent hx Pulmonary: No pertinent hx Psych: No pertinent hx Rheumatologic: No pertinent hx Renal/: No pertinent hx Past Surgical History Past Surgical History: No pertinent history Family History Family History Negative for known kidney disease Social History ALCOHOL: none Drugs: None Current Medications Current Medications Current Medications Ringer's Solution 1,000 ml @ 125 mls/hr Q8H PRN IV hydration Last administered on 06/28/20at 12:20; Start 06/27/20 at 21:30 Acetaminophen (Tylenol) 650 mg PRN Q6HRS PRN PO MILD PAIN, TEMP > 100.5'F; Start 06/27/20 at 21:30; Stop 06/28/20 at 00:42; Status DC Ondansetron HCl (Zofran) 4 mg PRN Q6HRS PRN IVP NAUSEA 1ST CHOICE; Start 06/27/20 at 21:30; Stop 06/28/20 at 00:42; Status DC Sodium Chloride (Normal Saline Flush) 3 ml QSHIFT PRN IV AFTER MEDS AND BLOOD DRAWS; Start 06/27/20 at 21:30; Stop 06/28/20 at 00:42; Status DC Ringer's Solution 1,000 ml @ 125 mls/hr Q8H PRN IV hydration; Start 06/27/20 at 21:30; Stop 06/28/20 at 00:42; Status DC Butorphanol Tartrate (Stadol) 2 mg PRN Q1HR PRN IVP Severe labor pain; Start 06/27/20 at 21:30; Stop 06/28/20 at 00:42; Status DC Fentanyl Citrate (Fentanyl 2ml Vial) 100 mcg PRN Q30MIN PRN IVP Severe pain; Start 06/27/20 at 21:30; Stop 06/28/20 at 00:42; Status DC Terbutaline Sulfate (Brethine) 0.25 mg 1X PRN PRN SQ SEE COMMENTS; Start 06/27/20 at 21:30; Stop 06/28/20 at 00:42; Status DC Lidocaine HCl (Xylocaine 1% Pf 30ml Vial) 30 ml 1X PRN PRN INJ SEE COMMENTS Last administered on 06/27/20at 22:46; Start 06/27/20 at 21:30; Stop 06/28/20 at 00:42; Status DC Oxytocin 500 ml @ 0 mls/hr CONT PRN PRN IV Post delivery bleeding Last administered on 06/27/20at 21:48; Start 06/27/20 at 21:30; Stop 06/28/20 at 00:42; Status DC Ibuprofen (Motrin) 800 mg PRN Q6HRS PRN PO MODERATE PAIN 4-6 Last administered on 06/28/20at 00:01; Start 06/27/20 at 21:30; Stop 06/28/20 at 00:42; Status DC Sodium Chloride (Normal Saline Flush) 10 ml QSHIFT PRN IV AFTER MEDS AND BLOOD DRAWS; Start 06/28/20 at 00:45 Oxytocin 500 ml @ 62.5 mls/hr CONT PRN IV SEE I/O RECORD; Start 06/28/20 at 00:45; Stop 06/28/20 at 08:44; Status DC Acetaminophen (Tylenol) 650 mg PRN Q6HRS PRN PO MILD PAIN / TEMP > 100.3'F; Start 06/28/20 at 00:45 Ibuprofen (Motrin) 800 mg Q8HRS PO Last administered on 06/28/20at 08:31; Start 06/28/20 at 06:00; Stop 06/28/20 at 15:11; Status DC Docusate Sodium (Colace) 100 mg PRN BID PRN PO HARD STOOLS; Start 06/28/20 at 00:45 Magnesium Hydroxide (Milk Of Magnesia) 2,400 mg PRN DAILY PRN PO CONSTIPATION; Start 06/28/20 at 00:45 Al Hydroxide/Mg Hydroxide (Mylanta Plus Xs) 30 ml PRN Q4HRS PRN PO HEARTBURN / GAS; Start 06/28/20 at 00:45 Simethicone (Gas-X) 80 mg PRN AFTMEALHC PRN PO GAS / BLOATING; Start 06/28/20 at 00:45 Diphenhydramine HCl (Benadryl) 25 mg PRN Q6HRS PRN PO ITCHING; Start 06/28/20 at 00:45 Benzocaine (Americaine) 1 spray PRN QID PRN TP TOPICAL PAIN; Start 06/28/20 at 00:45 Phenyleph/Shark Oil/Min Oil/Petrol (Preparation H) 1 matilda PRN QID PRN RC RECTAL PAIN; Start 06/28/20 at 00:45 Hydrocortisone (Cortaid) 1 matilda PRN QID PRN TP PERINEAL PAIN; Start 06/28/20 at 00:45 Ferrous Sulfate (Feosol) 325 mg BIDWMEALS PO ; Start 06/29/20 at 08:00 Zolpidem Tartrate (Ambien) 5 mg PRN QHS PRN PO INSOMNIA, MAY REPEAT X1; Start 06/28/20 at 00:45 Info (Do NOT chart on this placeholder) 1 ea 1X PRN PRN MC SEE COMMENTS; Start 06/28/20 at 00:45 Multivitamins (Thera M Plus) 1 tab DAILY PO Last administered on 06/28/20at 08:30; Start 06/28/20 at 09:00 Acetaminophen/ Hydrocodone Bitart (Lortab 5/325) 1 tab PRN Q4HRS PRN PO MILD PAIN 1-3; Start 06/28/20 at 00:45 Acetaminophen/ Hydrocodone Bitart (Lortab 5/325) 2 tab PRN Q4HRS PRN PO MODERATE PAIN, SEVERE PAIN; Start 06/28/20 at 00:45 Aspirin (Ecotrin) 81 mg DAILYWBKFT PO Last administered on 06/28/20at 12:46; Start 06/28/20 at 12:00 Magnesium Sulfate 500 ml @ 25 mls/hr Q20H IV Last administered on 06/28/20at 12:18; Start 06/28/20 at 12:00 Magnesium Sulfate 100 ml @ 25 mls/hr 1X ONCE IV Last administered on 06/28/20at 12:17; Start 06/28/20 at 13:00; Stop 06/28/20 at 16:59; Status DC Sodium Chloride 1,000 ml @ 100 mls/hr Q10H IV Last administered on 06/28/20at 16:00; Start 06/28/20 at 15:15 Active Scripts Active Augmentin 875-125 Tablet (Amoxicillin/Potassium Clav) 1 Each Tablet 1 Tab PO BID 10 Days Allergies Allergies: Coded Allergies: No Known Drug Allergies (Unverified , 12/29/19) ROS Review of System 14 point review of systems as best obtainable from the patient is grossly negative. Physical Exam Physical Exam GEN: Awake, Oriented x 2, appears somewhat fatigued and tired, In no visible distress. Some facial pallor cannot be ruled out EYES: Sclera anicteric conjunctiva Normal EN: No EN Drainage, Mucous Membranes moist NECK: no JVD, no JVP, Supple, no Thyromegaly CVS: S1S2, no Murmur, No Gallop, No Rub,no Edema RESP: no Rales, no Rhonchi,no Acc. Muscle Use GI: BS + ve, NO Bruit, Non Tender, Non Distended : no CVA tenderness, no Suprapubic Tenderness Vital Signs Vital Signs Date Time Temp Pulse Resp B/P (MAP) Pulse Ox O2 Delivery O2 Flow Rate FiO2 06/28/20 17:32 89 20 118/85 (96) 06/28/20 16:04 98.8 98.8 06/28/20 12:00 100 Room Air Assessment & Plan Acute kidney injury: UA looks benign. Urine output is adequate. Small amounts of blood probably associated with recent delivery. Continue IV fluids for now and reassess response to the same. NSAIDs discontinued Possible intravascular volume depletion: Continue IV fluids as ordered Mild metabolic acidosis: Change IV fluids to bicarb containing fluids in the form of IV lactated Ringer's Severe hypoalbuminemia with elevated LFTs and elevated bilirubin: Consider GI evaluation. Platelets are noted to be 211 K. Doubt HELLP syndrome per se Labs Labs Laboratory Tests Test 06/27/20 21:30 06/28/20 09:15 06/28/20 14:30 06/28/20 15:05 White Blood Count 9.6 x10^3/uL (4.0-11.0) 16.1 x10^3/uL (4.0-11.0) 15.5 x10^3/uL (4.0-11.0) Red Blood Count 4.51 x10^6/uL (3.50-5.40) 4.13 x10^6/uL (3.50-5.40) 3.87 x10^6/uL (3.50-5.40) Hemoglobin 13.5 g/dL (12.0-15.5) 12.2 g/dL (12.0-15.5) 11.4 g/dL (12.0-15.5) Hematocrit 40.5 % (36.0-47.0) 37.4 % (36.0-47.0) 34.7 % (36.0-47.0) Mean Corpuscular Volume 90 fL (79-100) 91 fL (79-100) 90 fL (79-100) Mean Corpuscular Hemoglobin 30 pg (25-35) 30 pg (25-35) 29 pg (25-35) Mean Corpuscular Hemoglobin Concent 33 g/dL (31-37) 33 g/dL (31-37) 33 g/dL (31-37) Red Cell Distribution Width 15.3 % (11.5-14.5) 15.5 % (11.5-14.5) 15.5 % (11.5-14.5) Platelet Count 259 x10^3/uL (140-400) 211 x10^3/uL (140-400) 211 x10^3/uL (140-400) Neutrophils (%) (Auto) 71 % (31-73) 76 % (31-73) 76 % (31-73) Lymphocytes (%) (Auto) 15 % (24-48) 12 % (24-48) 12 % (24-48) Monocytes (%) (Auto) 14 % (0-9) 12 % (0-9) 12 % (0-9) Eosinophils (%) (Auto) 0 % (0-3) 0 % (0-3) 0 % (0-3) Basophils (%) (Auto) 1 % (0-3) 0 % (0-3) 0 % (0-3) Neutrophils # (Auto) 6.8 x10^3/uL (1.8-7.7) 12.2 x10^3/uL (1.8-7.7) 11.7 x10^3/uL (1.8-7.7) Lymphocytes # (Auto) 1.4 x10^3/uL (1.0-4.8) 2.0 x10^3/uL (1.0-4.8) 1.8 x10^3/uL (1.0-4.8) Monocytes # (Auto) 1.4 x10^3/uL (0.0-1.1) 1.9 x10^3/uL (0.0-1.1) 1.8 x10^3/uL (0.0-1.1) Eosinophils # (Auto) 0.0 x10^3/uL (0.0-0.7) 0.0 x10^3/uL (0.0-0.7) 0.0 x10^3/uL (0.0-0.7) Basophils # (Auto) 0.0 x10^3/uL (0.0-0.2) 0.0 x10^3/uL (0.0-0.2) 0.1 x10^3/uL (0.0-0.2) Segmented Neutrophils % 59 % (35-66) Band Neutrophils % 12 % (0-9) Lymphocytes % 15 % (24-48) Monocytes % 12 % (0-10) Metamyelocytes % 2 % (0-0) Nucleated Red Blood Cells 2 Platelet Estimate Adequate (ADEQUATE) Large Platelets Present Daljit Cells Present Treponema pallidum Antibody Nonreactive (Nonreactive) SARS-CoV-2 Antigen (Rapid) Negative (NEGATIVE) Sodium Level 138 mmol/L (136-145) 138 mmol/L (136-145) Potassium Level 4.6 mmol/L (3.5-5.1) 4.3 mmol/L (3.5-5.1) Chloride Level 108 mmol/L (98-107) 109 mmol/L (98-107) Carbon Dioxide Level 15 mmol/L (21-32) 17 mmol/L (21-32) Anion Gap 15 (6-14) 12 (6-14) Blood Urea Nitrogen 12 mg/dL (7-20) 12 mg/dL (7-20) Creatinine 2.7 mg/dL (0.6-1.0) 2.6 mg/dL (0.6-1.0) Estimated GFR (Cockcroft-Gault) 27.2 28.4 BUN/Creatinine Ratio 4 (6-20) 5 (6-20) Glucose Level 73 mg/dL (70-99) 90 mg/dL (70-99) Calcium Level 9.8 mg/dL (8.5-10.1) 9.7 mg/dL (8.5-10.1) Total Bilirubin 8.0 mg/dL (0.2-1.0) 7.4 mg/dL (0.2-1.0) Aspartate Amino Transf (AST/SGOT) 496 U/L (15-37) 401 U/L (15-37) Alanine Aminotransferase (ALT/SGPT) 422 U/L (14-59) 356 U/L (14-59) Alkaline Phosphatase 643 U/L (46-116) 608 U/L (46-116) Total Protein 5.9 g/dL (6.4-8.2) 5.4 g/dL (6.4-8.2) Albumin 2.1 g/dL (3.4-5.0) 1.9 g/dL (3.4-5.0) Albumin/Globulin Ratio 0.6 (1.0-1.7) 0.5 (1.0-1.7) Urine Collection Type U cath Urine Color Yellow Urine Clarity Clear Urine pH 6.5 (<5.0-8.0) Urine Specific [place] <=1.005 (1.000-1.030) Urine Protein Negative mg/dL (NEG-TRACE) Urine Glucose (UA) Negative mg/dL (NEG) Urine Ketones (Stick) Negative mg/dL (NEG) Urine Blood Small (NEG) Urine Nitrite Negative (NEG) Urine Bilirubin Negative (NEG) Urine Urobilinogen Dipstick 0.2 mg/dL (0.2 mg/dL) Urine Leukocyte Esterase Negative (NEG) Urine RBC 1-2 /HPF (0-2) Urine WBC Occ /HPF (0-4) Urine Squamous Epithelial Cells Few /LPF Urine Bacteria 0 /HPF (0-FEW) Urine Opiates Screen Neg (NEG) Urine Methadone Screen Neg (NEG) Urine Barbiturates Neg (NEG) Urine Phencyclidine Screen Neg (NEG) Urine Amphetamine/Methamphetamine Neg (NEG) Urine Benzodiazepines Screen Neg (NEG) Urine Cocaine Screen Neg (NEG) Urine Cannabinoids Screen Neg (NEG) Urine Ethyl Alcohol Neg (NEG) Magnesium Level 4.6 mg/dL (1.8-2.4) Ammonia 45 mcmol/L (11-34) Laboratory Tests Test 06/27/20 21:30 06/28/20 09:15 06/28/20 14:30 06/28/20 15:05 White Blood Count 9.6 x10^3/uL (4.0-11.0) 16.1 x10^3/uL (4.0-11.0) 15.5 x10^3/uL (4.0-11.0) Red Blood Count 4.51 x10^6/uL (3.50-5.40) 4.13 x10^6/uL (3.50-5.40) 3.87 x10^6/uL (3.50-5.40) Hemoglobin 13.5 g/dL (12.0-15.5) 12.2 g/dL (12.0-15.5) 11.4 g/dL (12.0-15.5) Hematocrit 40.5 % (36.0-47.0) 37.4 % (36.0-47.0) 34.7 % (36.0-47.0) Mean Corpuscular Volume 90 fL (79-100) 91 fL (79-100) 90 fL (79-100) Mean Corpuscular Hemoglobin 30 pg (25-35) 30 pg (25-35) 29 pg (25-35) Mean Corpuscular Hemoglobin Concent 33 g/dL (31-37) 33 g/dL (31-37) 33 g/dL (31-37) Red Cell Distribution Width 15.3 % (11.5-14.5) 15.5 % (11.5-14.5) 15.5 % (11.5-14.5) Platelet Count 259 x10^3/uL (140-400) 211 x10^3/uL (140-400) 211 x10^3/uL (140-400) Neutrophils (%) (Auto) 71 % (31-73) 76 % (31-73) 76 % (31-73) Lymphocytes (%) (Auto) 15 % (24-48) 12 % (24-48) 12 % (24-48) Monocytes (%) (Auto) 14 % (0-9) 12 % (0-9) 12 % (0-9) Eosinophils (%) (Auto) 0 % (0-3) 0 % (0-3) 0 % (0-3) Basophils (%) (Auto) 1 % (0-3) 0 % (0-3) 0 % (0-3) Neutrophils # (Auto) 6.8 x10^3/uL (1.8-7.7) 12.2 x10^3/uL (1.8-7.7) 11.7 x10^3/uL (1.8-7.7) Lymphocytes # (Auto) 1.4 x10^3/uL (1.0-4.8) 2.0 x10^3/uL (1.0-4.8) 1.8 x10^3/uL (1.0-4.8) Monocytes # (Auto) 1.4 x10^3/uL (0.0-1.1) 1.9 x10^3/uL (0.0-1.1) 1.8 x10^3/uL (0.0-1.1) Eosinophils # (Auto) 0.0 x10^3/uL (0.0-0.7) 0.0 x10^3/uL (0.0-0.7) 0.0 x10^3/uL (0.0-0.7) Basophils # (Auto) 0.0 x10^3/uL (0.0-0.2) 0.0 x10^3/uL (0.0-0.2) 0.1 x10^3/uL (0.0-0.2) Segmented Neutrophils % 59 % (35-66) Band Neutrophils % 12 % (0-9) Lymphocytes % 15 % (24-48) Monocytes % 12 % (0-10) Metamyelocytes % 2 % (0-0) Nucleated Red Blood Cells 2 Platelet Estimate Adequate (ADEQUATE) Large Platelets Present Daljit Cells Present Treponema pallidum Antibody Nonreactive (Nonreactive) SARS-CoV-2 Antigen (Rapid) Negative (NEGATIVE) Sodium Level 138 mmol/L (136-145) 138 mmol/L (136-145) Potassium Level 4.6 mmol/L (3.5-5.1) 4.3 mmol/L (3.5-5.1) Chloride Level 108 mmol/L (98-107) 109 mmol/L (98-107) Carbon Dioxide Level 15 mmol/L (21-32) 17 mmol/L (21-32) Anion Gap 15 (6-14) 12 (6-14) Blood Urea Nitrogen 12 mg/dL (7-20) 12 mg/dL (7-20) Creatinine 2.7 mg/dL (0.6-1.0) 2.6 mg/dL (0.6-1.0) Estimated GFR (Cockcroft-Gault) 27.2 28.4 BUN/Creatinine Ratio 4 (6-20) 5 (6-20) Glucose Level 73 mg/dL (70-99) 90 mg/dL (70-99) Calcium Level 9.8 mg/dL (8.5-10.1) 9.7 mg/dL (8.5-10.1) Total Bilirubin 8.0 mg/dL (0.2-1.0) 7.4 mg/dL (0.2-1.0) Aspartate Amino Transf (AST/SGOT) 496 U/L (15-37) 401 U/L (15-37) Alanine Aminotransferase (ALT/SGPT) 422 U/L (14-59) 356 U/L (14-59) Alkaline Phosphatase 643 U/L (46-116) 608 U/L (46-116) Total Protein 5.9 g/dL (6.4-8.2) 5.4 g/dL (6.4-8.2) Albumin 2.1 g/dL (3.4-5.0) 1.9 g/dL (3.4-5.0) Albumin/Globulin Ratio 0.6 (1.0-1.7) 0.5 (1.0-1.7) Urine Collection Type U cath Urine Color Yellow Urine Clarity Clear Urine pH 6.5 (<5.0-8.0) Urine Specific [place] <=1.005 (1.000-1.030) Urine Protein Negative mg/dL (NEG-TRACE) Urine Glucose (UA) Negative mg/dL (NEG) Urine Ketones (Stick) Negative mg/dL (NEG) Urine Blood Small (NEG) Urine Nitrite Negative (NEG) Urine Bilirubin Negative (NEG) Urine Urobilinogen Dipstick 0.2 mg/dL (0.2 mg/dL) Urine Leukocyte Esterase Negative (NEG) Urine RBC 1-2 /HPF (0-2) Urine WBC Occ /HPF (0-4) Urine Squamous Epithelial Cells Few /LPF Urine Bacteria 0 /HPF (0-FEW) Urine Opiates Screen Neg (NEG) Urine Methadone Screen Neg (NEG) Urine Barbiturates Neg (NEG) Urine Phencyclidine Screen Neg (NEG) Urine Amphetamine/Methamphetamine Neg (NEG) Urine Benzodiazepines Screen Neg (NEG) Urine Cocaine Screen Neg (NEG) Urine Cannabinoids Screen Neg (NEG) Urine Ethyl Alcohol Neg (NEG) Magnesium Level 4.6 mg/dL (1.8-2.4) Ammonia 45 mcmol/L (11-34) Review All relevant outside records, renal labs, imaging studies, telemetry/EKG's were reviewed. Images Images Abdominal ultrasound Findings: The liver is normal in appearance and echogenicity. No intrahepatic biliary ductal dilatation or mass is seen. Contracted gallbladder. No gallstones, pericholecystic fluid, or gallbladder wall thickening are seen. The common bile duct is normal in diameter and measures 0.2 cm. Portal Vein flow is hepatopetal. The pancreas is normal in appearance, although the tail is not well visualized. The aorta and IVC are normal diameter where visualized. The right kidney is normal in appearance, measuring 9.0 cm in length. The left kidney is normal in appearance, measuring 8.4 cm in length. No hydronephrosis or perinephric fluid are seen bilaterally. The spleen is normal in appearance and measures 7.4 cm. Impression: No acute findings. No hydronephrosis or shadowing calculi. PING INFANTE MD Jun 28, 2020 18:13
--- NOTE | 2020-06-28 18:24 | CONS ---
DATE OF CONSULTATION: 06/28/2020 REFERRING PHYSICIAN: Matt Burnett MD REASON FOR CONSULTATION: COVID-19. HISTORY OF PRESENT ILLNESS: A 20-year-old female who underwent vaginal delivery on 06/27/2020 without any problems. The patient was positive for COVID-19 by rapid test on 06/17/2020. Today, her white count is 16.1 with a creatinine of 2.7, LFT elevation with bilirubin of 8. Last UA on 06/24/2020 was negative. ID consultation has been requested for COVID-19 evaluation. The patient remains on room air. Denies any fevers, chills,sob, cough, sore throat, sinus congestion, nausea, vomiting, headache, generalized aches or pains. Denies any symptoms. Renal team and GI team have been consulted. The patient states she feels tired today, but otherwise, no other complaints. PAST MEDICAL HISTORY: None significant. PAST SURGICAL HISTORY: None significant. FAMILY HISTORY: Noncontributory. SOCIAL HISTORY: No smoking, no alcohol. Does not work. Lives at home. Has significant other at bedside. ALLERGIES: No known drug allergies. CURRENT MEDICATIONS: Ferrous sulfate, magnesium sulfate, aspirin, ibuprofen, hydrocodone, Ambien, hydrocortisone, diphenhydramine, simethicone, aluminum hydroxide, docusate. PHYSICAL EXAMINATION: VITAL SIGNS: Temperature 97.8, pulse 99, respiratory rate 22, blood pressure 116/67, oxygen saturation 100% on room air. GENERAL: Alert, oriented x 3 female, lying in bed comfortably, sleepy, but arousable, in no acute distress. HEENT: Normocephalic, atraumatic, anicteric. No thrush. NECK: Supple, no JVD. LUNGS: Clear bilaterally. No wheezing. HEART: S1, S2. No gallops or murmurs. ABDOMEN: Soft, bowel sounds present, nontender, nondistended. EXTREMITIES: No edema, no cyanosis. DERMATOLOGIC: Warm, dry. No generalized rash. NEUROLOGIC: Alert, oriented x 3, grossly nonfocal. PSYCHIATRIC: Cooperative, calm. LABORATORY DATA: WBC 16.1, hemoglobin 12.2, hematocrit 37.4, platelets 211. Sodium 138, potassium 4.6, chloride 108, bicarb 15, BUN 12, creatinine 2.7, glucose 73. Calcium 9.8, total bili 8.0, AST 496, ALT 422, alkaline phosphatase 643, total protein 5.9, albumin 2.1. COVID PCR pending. RPR negative. UDS 06/24/2020 negative. SARS COVID 06/17/2020 positive. RADIOLOGY: None. IMPRESSION: 1. COVID-19 rapid test positive, 06/17/2020. COVID PCR pending 2. Leukocytosis, likely reactive. 3. Acute kidney injury.Metabolic acidosis. 4. Abnormal LFTs with hyperbilirubinemia. Etiology unclear 5. day 1, vaginal delivery. RECOMMENDATIONS: 1. Continue observation, pt is on RA and has no respiratory symptoms at this time. 2. Follow up COVID-19 PCR. 3. Gastrointestinal and Renal team have been consulted. 4. RPR is negative. 5. We will obtain Acute hepatitis profile and urine for chlamydia and gonorrhea. 6. Follow up abdominal ultrasound. 7. Continue supportive care. Discussed with significant other at bedside. Discussed with RN. Thank you for allowing me to participate in this patient's care. If you have any questions, do not hesitate to contact me. DULCE INFANTE MD DR: PARI/kasey JOB#: [id number] / [id number] KAILEY
[2020-06-28 19:31] LABS: % BANDS 12 % (0-9); % LYMPHS 10 % (24-48); % METAS 4 % (0-0); % MONOS 9 % (0-10); % MYELOS 3 % (0-0); % SEGS 62 % (35-66); NUCLEATED RBC 3
[2020-06-28 19:34] LABS: BURR CELLS MANY; PLT ESTIMATE ADEQUATE (ADEQUATE)
[2020-06-29] VITALS (10 sets, daily range): BP systolic 97–118; BP diastolic 53–81
[2020-06-29] MEDS: IV NORMAL SALINE 1000ML BAG 1,000 ML IV SCH ×3 (01:46→20:54)
[2020-06-29] MEDS: MAGNESIUM SULFATE 20GM 500 ML IV SCH (06:06)
[2020-06-29] MEDS: MULTIVITAMIN with MINERAL TABLET. PO SCH (08:15)
--- NOTE | 2020-06-29 09:56 | PDOC ---
PROGRESS NOTES Date of Service DATE: 06/29/20 TIME: 09:43 Subjective Subjective Patient doing better - more alert. tolerating diet. additional hx discovered today patient has been taking Ibuprofen throughout and had n/v the last 10 days of . Covid 19 PCR test returned Pos today. Objective Objective Vital Signs Date Time Temp Pulse Resp B/P (MAP) Pulse Ox O2 Delivery O2 Flow Rate FiO2 06/29/20 06:09 97.5 90 18 118/75 (89) Room Air 97.5 06/29/20 02:05 100 Intake and Output 06/29/20 07:00 Intake Total 3008 ml Output Total 3250 ml Balance -242 ml Intake Oral 1600 ml Blood Product IV Normal Saline Flush 250 ml Other 1158 ml Output Urine Total 3250 ml Physical Exam Abdomen: Normal bowel sounds, Other (RUQ) Heart: Regular rate Extremities: No edema General: Alert Lungs: Clear to auscultation Assessment Assessment Pre-eclampsia Help syndrome Covid 19 PPD#2 s/p abruption ARF Plan Plan of Care Finish 24hrs of mag Follow labs Increase activity and diet Ensure TID PRN Comment Review of Relevant I have reviewed the following items cecilia (where applicable) has been applied. Labs Laboratory Tests Test 06/27/20 21:30 06/28/20 09:15 06/28/20 14:30 06/28/20 15:05 White Blood Count 9.6 x10^3/uL (4.0-11.0) 16.1 x10^3/uL (4.0-11.0) 15.5 x10^3/uL (4.0-11.0) Red Blood Count 4.51 x10^6/uL (3.50-5.40) 4.13 x10^6/uL (3.50-5.40) 3.87 x10^6/uL (3.50-5.40) Hemoglobin 13.5 g/dL (12.0-15.5) 12.2 g/dL (12.0-15.5) 11.4 g/dL (12.0-15.5) Hematocrit 40.5 % (36.0-47.0) 37.4 % (36.0-47.0) 34.7 % (36.0-47.0) Mean Corpuscular Volume 90 fL (79-100) 91 fL (79-100) 90 fL (79-100) Mean Corpuscular Hemoglobin 30 pg (25-35) 30 pg (25-35) 29 pg (25-35) Mean Corpuscular Hemoglobin Concent 33 g/dL (31-37) 33 g/dL (31-37) 33 g/dL (31-37) Red Cell Distribution Width 15.3 % (11.5-14.5) 15.5 % (11.5-14.5) 15.5 % (11.5-14.5) Platelet Count 259 x10^3/uL (140-400) 211 x10^3/uL (140-400) 211 x10^3/uL (140-400) Neutrophils (%) (Auto) 71 % (31-73) 76 % (31-73) 76 % (31-73) Lymphocytes (%) (Auto) 15 % (24-48) 12 % (24-48) 12 % (24-48) Monocytes (%) (Auto) 14 % (0-9) 12 % (0-9) 12 % (0-9) Eosinophils (%) (Auto) 0 % (0-3) 0 % (0-3) 0 % (0-3) Basophils (%) (Auto) 1 % (0-3) 0 % (0-3) 0 % (0-3) Neutrophils # (Auto) 6.8 x10^3/uL (1.8-7.7) 12.2 x10^3/uL (1.8-7.7) 11.7 x10^3/uL (1.8-7.7) Lymphocytes # (Auto) 1.4 x10^3/uL (1.0-4.8) 2.0 x10^3/uL (1.0-4.8) 1.8 x10^3/uL (1.0-4.8) Monocytes # (Auto) 1.4 x10^3/uL (0.0-1.1) 1.9 x10^3/uL (0.0-1.1) 1.8 x10^3/uL (0.0-1.1) Eosinophils # (Auto) 0.0 x10^3/uL (0.0-0.7) 0.0 x10^3/uL (0.0-0.7) 0.0 x10^3/uL (0.0-0.7) Basophils # (Auto) 0.0 x10^3/uL (0.0-0.2) 0.0 x10^3/uL (0.0-0.2) 0.1 x10^3/uL (0.0-0.2) Segmented Neutrophils % 59 % (35-66) 62 % (35-66) Band Neutrophils % 12 % (0-9) 12 % (0-9) Lymphocytes % 15 % (24-48) 10 % (24-48) Monocytes % 12 % (0-10) 9 % (0-10) Metamyelocytes % 2 % (0-0) 4 % (0-0) Nucleated Red Blood Cells 2 3 Platelet Estimate Adequate (ADEQUATE) Adequate (ADEQUATE) Large Platelets Present Few Daljit Cells Present Many Treponema pallidum Antibody Nonreactive (Nonreactive) Coronavirus (PCR) Detected (Not Detected) SARS-CoV-2 Antigen (Rapid) Negative (NEGATIVE) Myelocytes % 3 % (0-0) Giant Platelets Occ Sodium Level 138 mmol/L (136-145) 138 mmol/L (136-145) Potassium Level 4.6 mmol/L (3.5-5.1) 4.3 mmol/L (3.5-5.1) Chloride Level 108 mmol/L (98-107) 109 mmol/L (98-107) Carbon Dioxide Level 15 mmol/L (21-32) 17 mmol/L (21-32) Anion Gap 15 (6-14) 12 (6-14) Blood Urea Nitrogen 12 mg/dL (7-20) 12 mg/dL (7-20) Creatinine 2.7 mg/dL (0.6-1.0) 2.6 mg/dL (0.6-1.0) Estimated GFR (Cockcroft-Gault) 27.2 28.4 BUN/Creatinine Ratio 4 (6-20) 5 (6-20) Glucose Level 73 mg/dL (70-99) 90 mg/dL (70-99) Calcium Level 9.8 mg/dL (8.5-10.1) 9.7 mg/dL (8.5-10.1) Total Bilirubin 8.0 mg/dL (0.2-1.0) 7.4 mg/dL (0.2-1.0) Aspartate Amino Transf (AST/SGOT) 496 U/L (15-37) 401 U/L (15-37) Alanine Aminotransferase (ALT/SGPT) 422 U/L (14-59) 356 U/L (14-59) Alkaline Phosphatase 643 U/L (46-116) 608 U/L (46-116) Total Protein 5.9 g/dL (6.4-8.2) 5.4 g/dL (6.4-8.2) Albumin 2.1 g/dL (3.4-5.0) 1.9 g/dL (3.4-5.0) Albumin/Globulin Ratio 0.6 (1.0-1.7) 0.5 (1.0-1.7) Urine Collection Type U cath Urine Color Yellow Urine Clarity Clear Urine pH 6.5 (<5.0-8.0) Urine Specific [place] <=1.005 (1.000-1.030) Urine Protein Negative mg/dL (NEG-TRACE) Urine Glucose (UA) Negative mg/dL (NEG) Urine Ketones (Stick) Negative mg/dL (NEG) Urine Blood Small (NEG) Urine Nitrite Negative (NEG) Urine Bilirubin Negative (NEG) Urine Urobilinogen Dipstick 0.2 mg/dL (0.2 mg/dL) Urine Leukocyte Esterase Negative (NEG) Urine RBC 1-2 /HPF (0-2) Urine WBC Occ /HPF (0-4) Urine Squamous Epithelial Cells Few /LPF Urine Bacteria 0 /HPF (0-FEW) Urine Opiates Screen Neg (NEG) Urine Methadone Screen Neg (NEG) Urine Barbiturates Neg (NEG) Urine Phencyclidine Screen Neg (NEG) Urine Amphetamine/Methamphetamine Neg (NEG) Urine Benzodiazepines Screen Neg (NEG) Urine Cocaine Screen Neg (NEG) Urine Cannabinoids Screen Neg (NEG) Urine Ethyl Alcohol Neg (NEG) Magnesium Level 4.6 mg/dL (1.8-2.4) Ammonia 45 mcmol/L (11-34) Laboratory Tests Test 06/28/20 14:30 06/28/20 15:05 Urine Collection Type U cath Urine Color Yellow Urine Clarity Clear Urine pH 6.5 (<5.0-8.0) Urine Specific [place] <=1.005 (1.000-1.030) Urine Protein Negative mg/dL (NEG-TRACE) Urine Glucose (UA) Negative mg/dL (NEG) Urine Ketones (Stick) Negative mg/dL (NEG) Urine Blood Small (NEG) Urine Nitrite Negative (NEG) Urine Bilirubin Negative (NEG) Urine Urobilinogen Dipstick 0.2 mg/dL (0.2 mg/dL) Urine Leukocyte Esterase Negative (NEG) Urine RBC 1-2 /HPF (0-2) Urine WBC Occ /HPF (0-4) Urine Squamous Epithelial Cells Few /LPF Urine Bacteria 0 /HPF (0-FEW) Urine Opiates Screen Neg (NEG) Urine Methadone Screen Neg (NEG) Urine Barbiturates Neg (NEG) Urine Phencyclidine Screen Neg (NEG) Urine Amphetamine/Methamphetamine Neg (NEG) Urine Benzodiazepines Screen Neg (NEG) Urine Cocaine Screen Neg (NEG) Urine Cannabinoids Screen Neg (NEG) Urine Ethyl Alcohol Neg (NEG) White Blood Count 15.5 x10^3/uL (4.0-11.0) Red Blood Count 3.87 x10^6/uL (3.50-5.40) Hemoglobin 11.4 g/dL (12.0-15.5) Hematocrit 34.7 % (36.0-47.0) Mean Corpuscular Volume 90 fL (79-100) Mean Corpuscular Hemoglobin 29 pg (25-35) Mean Corpuscular Hemoglobin Concent 33 g/dL (31-37) Red Cell Distribution Width 15.5 % (11.5-14.5) Platelet Count 211 x10^3/uL (140-400) Neutrophils (%) (Auto) 76 % (31-73) Lymphocytes (%) (Auto) 12 % (24-48) Monocytes (%) (Auto) 12 % (0-9) Eosinophils (%) (Auto) 0 % (0-3) Basophils (%) (Auto) 0 % (0-3) Neutrophils # (Auto) 11.7 x10^3/uL (1.8-7.7) Lymphocytes # (Auto) 1.8 x10^3/uL (1.0-4.8) Monocytes # (Auto) 1.8 x10^3/uL (0.0-1.1) Eosinophils # (Auto) 0.0 x10^3/uL (0.0-0.7) Basophils # (Auto) 0.1 x10^3/uL (0.0-0.2) Sodium Level 138 mmol/L (136-145) Potassium Level 4.3 mmol/L (3.5-5.1) Chloride Level 109 mmol/L (98-107) Carbon Dioxide Level 17 mmol/L (21-32) Anion Gap 12 (6-14) Blood Urea Nitrogen 12 mg/dL (7-20) Creatinine 2.6 mg/dL (0.6-1.0) Estimated GFR (Cockcroft-Gault) 28.4 BUN/Creatinine Ratio 5 (6-20) Glucose Level 90 mg/dL (70-99) Calcium Level 9.7 mg/dL (8.5-10.1) Magnesium Level 4.6 mg/dL (1.8-2.4) Total Bilirubin 7.4 mg/dL (0.2-1.0) Aspartate Amino Transf (AST/SGOT) 401 U/L (15-37) Alanine Aminotransferase (ALT/SGPT) 356 U/L (14-59) Alkaline Phosphatase 608 U/L (46-116) Ammonia 45 mcmol/L (11-34) Total Protein 5.4 g/dL (6.4-8.2) Albumin 1.9 g/dL (3.4-5.0) Albumin/Globulin Ratio 0.5 (1.0-1.7) Medications Current Medications Ringer's Solution 1,000 ml @ 125 mls/hr Q8H PRN IV hydration Last administered on 06/28/20at 12:20; Start 06/27/20 at 21:30 Acetaminophen (Tylenol) 650 mg PRN Q6HRS PRN PO MILD PAIN, TEMP > 100.5'F; Start 06/27/20 at 21:30; Stop 06/28/20 at 00:42; Status DC Ondansetron HCl (Zofran) 4 mg PRN Q6HRS PRN IVP NAUSEA 1ST CHOICE; Start 06/27/20 at 21:30; Stop 06/28/20 at 00:42; Status DC Sodium Chloride (Normal Saline Flush) 3 ml QSHIFT PRN IV AFTER MEDS AND BLOOD DRAWS; Start 06/27/20 at 21:30; Stop 06/28/20 at 00:42; Status DC Ringer's Solution 1,000 ml @ 125 mls/hr Q8H PRN IV hydration; Start 06/27/20 at 21:30; Stop 06/28/20 at 00:42; Status DC Butorphanol Tartrate (Stadol) 2 mg PRN Q1HR PRN IVP Severe labor pain; Start 06/27/20 at 21:30; Stop 06/28/20 at 00:42; Status DC Fentanyl Citrate (Fentanyl 2ml Vial) 100 mcg PRN Q30MIN PRN IVP Severe pain; Start 06/27/20 at 21:30; Stop 06/28/20 at 00:42; Status DC Terbutaline Sulfate (Brethine) 0.25 mg 1X PRN PRN SQ SEE COMMENTS; Start 06/27/20 at 21:30; Stop 06/28/20 at 00:42; Status DC Lidocaine HCl (Xylocaine 1% Pf 30ml Vial) 30 ml 1X PRN PRN INJ SEE COMMENTS Last administered on 06/27/20at 22:46; Start 06/27/20 at 21:30; Stop 06/28/20 at 00:42; Status DC Oxytocin 500 ml @ 0 mls/hr CONT PRN PRN IV Post delivery bleeding Last administered on 06/27/20at 21:48; Start 06/27/20 at 21:30; Stop 06/28/20 at 00:42; Status DC Ibuprofen (Motrin) 800 mg PRN Q6HRS PRN PO MODERATE PAIN 4-6 Last administered on 06/28/20at 00:01; Start 06/27/20 at 21:30; Stop 06/28/20 at 00:42; Status DC Sodium Chloride (Normal Saline Flush) 10 ml QSHIFT PRN IV AFTER MEDS AND BLOOD DRAWS; Start 06/28/20 at 00:45 Oxytocin 500 ml @ 62.5 mls/hr CONT PRN IV SEE I/O RECORD; Start 06/28/20 at 00:45; Stop 06/28/20 at 08:44; Status DC Acetaminophen (Tylenol) 650 mg PRN Q6HRS PRN PO MILD PAIN / TEMP > 100.3'F; Start 06/28/20 at 00:45 Ibuprofen (Motrin) 800 mg Q8HRS PO Last administered on 06/28/20at 08:31; Start 06/28/20 at 06:00; Stop 06/28/20 at 15:11; Status DC Docusate Sodium (Colace) 100 mg PRN BID PRN PO HARD STOOLS Last administered on 06/29/20at 08:43; Start 06/28/20 at 00:45 Magnesium Hydroxide (Milk Of Magnesia) 2,400 mg PRN DAILY PRN PO CONSTIPATION; Start 06/28/20 at 00:45 Al Hydroxide/Mg Hydroxide (Mylanta Plus Xs) 30 ml PRN Q4HRS PRN PO HEARTBURN / GAS; Start 06/28/20 at 00:45 Simethicone (Gas-X) 80 mg PRN AFTMEALHC PRN PO GAS / BLOATING; Start 06/28/20 at 00:45 Diphenhydramine HCl (Benadryl) 25 mg PRN Q6HRS PRN PO ITCHING; Start 06/28/20 at 00:45 Benzocaine (Americaine) 1 spray PRN QID PRN TP TOPICAL PAIN; Start 06/28/20 at 00:45 Phenyleph/Shark Oil/Min Oil/Petrol (Preparation H) 1 matilda PRN QID PRN RC RECTAL PAIN; Start 06/28/20 at 00:45 Hydrocortisone (Cortaid) 1 matilda PRN QID PRN TP PERINEAL PAIN; Start 06/28/20 at 00:45 Ferrous Sulfate (Feosol) 325 mg BIDWMEALS PO ; Start 06/29/20 at 08:00 Zolpidem Tartrate (Ambien) 5 mg PRN QHS PRN PO INSOMNIA, MAY REPEAT X1; Start 06/28/20 at 00:45 Info (Do NOT chart on this placeholder) 1 ea 1X PRN PRN MC SEE COMMENTS; Start 06/28/20 at 00:45 Multivitamins (Thera M Plus) 1 tab DAILY PO Last administered on 06/29/20at 08:15; Start 06/28/20 at 09:00 Acetaminophen/ Hydrocodone Bitart (Lortab 5/325) 1 tab PRN Q4HRS PRN PO MILD PAIN 1-3; Start 06/28/20 at 00:45 Acetaminophen/ Hydrocodone Bitart (Lortab 5/325) 2 tab PRN Q4HRS PRN PO MODERATE PAIN, SEVERE PAIN; Start 06/28/20 at 00:45 Aspirin (Ecotrin) 81 mg DAILYWBKFT PO Last administered on 06/28/20at 12:46; Start 06/28/20 at 12:00 Magnesium Sulfate 500 ml @ 25 mls/hr Q20H IV Last administered on 06/29/20at 06:06; Start 06/28/20 at 12:00 Magnesium Sulfate 100 ml @ 25 mls/hr 1X ONCE IV Last administered on 06/28/20at 12:17; Start 06/28/20 at 13:00; Stop 06/28/20 at 16:59; Status DC Sodium Chloride 1,000 ml @ 100 mls/hr Q10H IV Last administered on 06/29/20at 01:46; Start 06/28/20 at 15:15 Active Scripts Active Augmentin 875-125 Tablet (Amoxicillin/Potassium Clav) 1 Each Tablet 1 Tab PO BID 10 Days Vitals/I & O Vital Sign - Last 24 Hours 06/28/20 06/28/20 06/28/20 06/28/20 12:00 12:39 12:46 12:51 Temp 97.8 97.8 Pulse 88 96 101 94 Resp 18 20 20 18 B/P (MAP) 110/74 (86) 123/74 (90) 119/79 (92) 116/80 (92) Pulse Ox 100 O2 Delivery Room Air 06/28/20 06/28/20 06/28/20 06/28/20 12:56 13:01 13:06 13:11 Pulse 93 93 95 100 Resp 20 18 18 20 B/P (MAP) 112/79 (90) 103/71 (82) 116/67 (83) 103/66 (78) 06/28/20 06/28/20 06/28/20 06/28/20 13:16 13:26 13:56 14:26 Pulse 99 88 94 87 Resp 22 18 20 18 B/P (MAP) 116/67 (83) 106/72 (83) 106/73 (84) 119/77 (91) 06/28/20 06/28/20 06/28/20 06/28/20 14:57 15:42 16:04 17:32 Temp 98.8 98.8 Pulse 94 83 84 89 Resp 16 18 18 20 B/P (MAP) 129/83 (98) 106/72 (83) 123/82 (96) 118/85 (96) 06/28/20 06/28/20 06/28/20 06/28/20 18:39 20:19 22:08 23:55 Temp 98.0 98.0 97.7 98.0 98.0 97.7 Pulse 98 86 89 91 Resp 20 18 18 18 B/P (MAP) 129/93 (105) 124/84 (97) 113/86 (95) 115/76 (89) O2 Delivery Room Air Room Air Room Air 06/29/20 06/29/20 06/29/20 02:05 03:58 06:09 Temp 96.8 97.0 97.5 96.8 97.0 97.5 Pulse 80 85 90 Resp 18 18 18 B/P (MAP) 97/56 (70) 118/80 (93) 118/75 (89) Pulse Ox 100 O2 Delivery Room Air Room Air Room Air Intake and Output 06/28/20 06/28/20 06/29/20 15:00 23:00 07:00 Intake Total 200 ml 637 ml 2171 ml Output Total 1800 ml 1450 ml Balance 200 ml -1163 ml 721 ml Justifications for Admission Other Justification SHAYE READ MD Jun 29, 2020 09:56
--- NOTE | 2020-06-29 10:13 | PDOC ---
OB Progress Note Date of Service 06/29/20 Time of Evaluation 1005 Notes Pt. feeling better. Pt. with good diuresis overnight 2 L. Pt. more mobile in room. Awaiting AM labs. Lab Laboratory Tests Test 06/27/20 21:30 06/28/20 09:15 06/28/20 14:30 06/28/20 15:05 White Blood Count 9.6 x10^3/uL (4.0-11.0) 16.1 x10^3/uL (4.0-11.0) 15.5 x10^3/uL (4.0-11.0) Red Blood Count 4.51 x10^6/uL (3.50-5.40) 4.13 x10^6/uL (3.50-5.40) 3.87 x10^6/uL (3.50-5.40) Hemoglobin 13.5 g/dL (12.0-15.5) 12.2 g/dL (12.0-15.5) 11.4 g/dL (12.0-15.5) Hematocrit 40.5 % (36.0-47.0) 37.4 % (36.0-47.0) 34.7 % (36.0-47.0) Mean Corpuscular Volume 90 fL (79-100) 91 fL (79-100) 90 fL (79-100) Mean Corpuscular Hemoglobin 30 pg (25-35) 30 pg (25-35) 29 pg (25-35) Mean Corpuscular Hemoglobin Concent 33 g/dL (31-37) 33 g/dL (31-37) 33 g/dL (31-37) Red Cell Distribution Width 15.3 % (11.5-14.5) 15.5 % (11.5-14.5) 15.5 % (11.5-14.5) Platelet Count 259 x10^3/uL (140-400) 211 x10^3/uL (140-400) 211 x10^3/uL (140-400) Neutrophils (%) (Auto) 71 % (31-73) 76 % (31-73) 76 % (31-73) Lymphocytes (%) (Auto) 15 % (24-48) 12 % (24-48) 12 % (24-48) Monocytes (%) (Auto) 14 % (0-9) 12 % (0-9) 12 % (0-9) Eosinophils (%) (Auto) 0 % (0-3) 0 % (0-3) 0 % (0-3) Basophils (%) (Auto) 1 % (0-3) 0 % (0-3) 0 % (0-3) Neutrophils # (Auto) 6.8 x10^3/uL (1.8-7.7) 12.2 x10^3/uL (1.8-7.7) 11.7 x10^3/uL (1.8-7.7) Lymphocytes # (Auto) 1.4 x10^3/uL (1.0-4.8) 2.0 x10^3/uL (1.0-4.8) 1.8 x10^3/uL (1.0-4.8) Monocytes # (Auto) 1.4 x10^3/uL (0.0-1.1) 1.9 x10^3/uL (0.0-1.1) 1.8 x10^3/uL (0.0-1.1) Eosinophils # (Auto) 0.0 x10^3/uL (0.0-0.7) 0.0 x10^3/uL (0.0-0.7) 0.0 x10^3/uL (0.0-0.7) Basophils # (Auto) 0.0 x10^3/uL (0.0-0.2) 0.0 x10^3/uL (0.0-0.2) 0.1 x10^3/uL (0.0-0.2) Segmented Neutrophils % 59 % (35-66) 62 % (35-66) Band Neutrophils % 12 % (0-9) 12 % (0-9) Lymphocytes % 15 % (24-48) 10 % (24-48) Monocytes % 12 % (0-10) 9 % (0-10) Metamyelocytes % 2 % (0-0) 4 % (0-0) Nucleated Red Blood Cells 2 3 Platelet Estimate Adequate (ADEQUATE) Adequate (ADEQUATE) Large Platelets Present Few [place] Cells Present Many Treponema pallidum Antibody Nonreactive (Nonreactive) Coronavirus (PCR) Detected (Not Detected) SARS-CoV-2 Antigen (Rapid) Negative (NEGATIVE) Myelocytes % 3 % (0-0) Giant Platelets Occ Sodium Level 138 mmol/L (136-145) 138 mmol/L (136-145) Potassium Level 4.6 mmol/L (3.5-5.1) 4.3 mmol/L (3.5-5.1) Chloride Level 108 mmol/L (98-107) 109 mmol/L (98-107) Carbon Dioxide Level 15 mmol/L (21-32) 17 mmol/L (21-32) Anion Gap 15 (6-14) 12 (6-14) Blood Urea Nitrogen 12 mg/dL (7-20) 12 mg/dL (7-20) Creatinine 2.7 mg/dL (0.6-1.0) 2.6 mg/dL (0.6-1.0) Estimated GFR (Cockcroft-Gault) 27.2 28.4 BUN/Creatinine Ratio 4 (6-20) 5 (6-20) Glucose Level 73 mg/dL (70-99) 90 mg/dL (70-99) Calcium Level 9.8 mg/dL (8.5-10.1) 9.7 mg/dL (8.5-10.1) Total Bilirubin 8.0 mg/dL (0.2-1.0) 7.4 mg/dL (0.2-1.0) Aspartate Amino Transf (AST/SGOT) 496 U/L (15-37) 401 U/L (15-37) Alanine Aminotransferase (ALT/SGPT) 422 U/L (14-59) 356 U/L (14-59) Alkaline Phosphatase 643 U/L (46-116) 608 U/L (46-116) Total Protein 5.9 g/dL (6.4-8.2) 5.4 g/dL (6.4-8.2) Albumin 2.1 g/dL (3.4-5.0) 1.9 g/dL (3.4-5.0) Albumin/Globulin Ratio 0.6 (1.0-1.7) 0.5 (1.0-1.7) Urine Collection Type U cath Urine Color Yellow Urine Clarity Clear Urine pH 6.5 (<5.0-8.0) Urine Specific [place] <=1.005 (1.000-1.030) Urine Protein Negative mg/dL (NEG-TRACE) Urine Glucose (UA) Negative mg/dL (NEG) Urine Ketones (Stick) Negative mg/dL (NEG) Urine Blood Small (NEG) Urine Nitrite Negative (NEG) Urine Bilirubin Negative (NEG) Urine Urobilinogen Dipstick 0.2 mg/dL (0.2 mg/dL) Urine Leukocyte Esterase Negative (NEG) Urine RBC 1-2 /HPF (0-2) Urine WBC Occ /HPF (0-4) Urine Squamous Epithelial Cells Few /LPF Urine Bacteria 0 /HPF (0-FEW) Urine Opiates Screen Neg (NEG) Urine Methadone Screen Neg (NEG) Urine Barbiturates Neg (NEG) Urine Phencyclidine Screen Neg (NEG) Urine Amphetamine/Methamphetamine Neg (NEG) Urine Benzodiazepines Screen Neg (NEG) Urine Cocaine Screen Neg (NEG) Urine Cannabinoids Screen Neg (NEG) Urine Ethyl Alcohol Neg (NEG) Magnesium Level 4.6 mg/dL (1.8-2.4) Ammonia 45 mcmol/L (11-34) Laboratory Tests Test 06/28/20 14:30 06/28/20 15:05 Urine Collection Type U cath Urine Color Yellow Urine Clarity Clear Urine pH 6.5 (<5.0-8.0) Urine Specific [place] <=1.005 (1.000-1.030) Urine Protein Negative mg/dL (NEG-TRACE) Urine Glucose (UA) Negative mg/dL (NEG) Urine Ketones (Stick) Negative mg/dL (NEG) Urine Blood Small (NEG) Urine Nitrite Negative (NEG) Urine Bilirubin Negative (NEG) Urine Urobilinogen Dipstick 0.2 mg/dL (0.2 mg/dL) Urine Leukocyte Esterase Negative (NEG) Urine RBC 1-2 /HPF (0-2) Urine WBC Occ /HPF (0-4) Urine Squamous Epithelial Cells Few /LPF Urine Bacteria 0 /HPF (0-FEW) Urine Opiates Screen Neg (NEG) Urine Methadone Screen Neg (NEG) Urine Barbiturates Neg (NEG) Urine Phencyclidine Screen Neg (NEG) Urine Amphetamine/Methamphetamine Neg (NEG) Urine Benzodiazepines Screen Neg (NEG) Urine Cocaine Screen Neg (NEG) Urine Cannabinoids Screen Neg (NEG) Urine Ethyl Alcohol Neg (NEG) White Blood Count 15.5 x10^3/uL (4.0-11.0) Red Blood Count 3.87 x10^6/uL (3.50-5.40) Hemoglobin 11.4 g/dL (12.0-15.5) Hematocrit 34.7 % (36.0-47.0) Mean Corpuscular Volume 90 fL (79-100) Mean Corpuscular Hemoglobin 29 pg (25-35) Mean Corpuscular Hemoglobin Concent 33 g/dL (31-37) Red Cell Distribution Width 15.5 % (11.5-14.5) Platelet Count 211 x10^3/uL (140-400) Neutrophils (%) (Auto) 76 % (31-73) Lymphocytes (%) (Auto) 12 % (24-48) Monocytes (%) (Auto) 12 % (0-9) Eosinophils (%) (Auto) 0 % (0-3) Basophils (%) (Auto) 0 % (0-3) Neutrophils # (Auto) 11.7 x10^3/uL (1.8-7.7) Lymphocytes # (Auto) 1.8 x10^3/uL (1.0-4.8) Monocytes # (Auto) 1.8 x10^3/uL (0.0-1.1) Eosinophils # (Auto) 0.0 x10^3/uL (0.0-0.7) Basophils # (Auto) 0.1 x10^3/uL (0.0-0.2) Sodium Level 138 mmol/L (136-145) Potassium Level 4.3 mmol/L (3.5-5.1) Chloride Level 109 mmol/L (98-107) Carbon Dioxide Level 17 mmol/L (21-32) Anion Gap 12 (6-14) Blood Urea Nitrogen 12 mg/dL (7-20) Creatinine 2.6 mg/dL (0.6-1.0) Estimated GFR (Cockcroft-Gault) 28.4 BUN/Creatinine Ratio 5 (6-20) Glucose Level 90 mg/dL (70-99) Calcium Level 9.7 mg/dL (8.5-10.1) Magnesium Level 4.6 mg/dL (1.8-2.4) Total Bilirubin 7.4 mg/dL (0.2-1.0) Aspartate Amino Transf (AST/SGOT) 401 U/L (15-37) Alanine Aminotransferase (ALT/SGPT) 356 U/L (14-59) Alkaline Phosphatase 608 U/L (46-116) Ammonia 45 mcmol/L (11-34) Total Protein 5.4 g/dL (6.4-8.2) Albumin 1.9 g/dL (3.4-5.0) Albumin/Globulin Ratio 0.5 (1.0-1.7) Medications Current Medications Ringer's Solution 1,000 ml @ 125 mls/hr Q8H PRN IV hydration Last administered on 06/28/20at 12:20; Start 06/27/20 at 21:30 Acetaminophen (Tylenol) 650 mg PRN Q6HRS PRN PO MILD PAIN, TEMP > 100.5'F; Start 06/27/20 at 21:30; Stop 06/28/20 at 00:42; Status DC Ondansetron HCl (Zofran) 4 mg PRN Q6HRS PRN IVP NAUSEA 1ST CHOICE; Start 06/27/20 at 21:30; Stop 06/28/20 at 00:42; Status DC Sodium Chloride (Normal Saline Flush) 3 ml QSHIFT PRN IV AFTER MEDS AND BLOOD DRAWS; Start 06/27/20 at 21:30; Stop 06/28/20 at 00:42; Status DC Ringer's Solution 1,000 ml @ 125 mls/hr Q8H PRN IV hydration; Start 06/27/20 at 21:30; Stop 06/28/20 at 00:42; Status DC Butorphanol Tartrate (Stadol) 2 mg PRN Q1HR PRN IVP Severe labor pain; Start 06/27/20 at 21:30; Stop 06/28/20 at 00:42; Status DC Fentanyl Citrate (Fentanyl 2ml Vial) 100 mcg PRN Q30MIN PRN IVP Severe pain; Start 06/27/20 at 21:30; Stop 06/28/20 at 00:42; Status DC Terbutaline Sulfate (Brethine) 0.25 mg 1X PRN PRN SQ SEE COMMENTS; Start 06/27/20 at 21:30; Stop 06/28/20 at 00:42; Status DC Lidocaine HCl (Xylocaine 1% Pf 30ml Vial) 30 ml 1X PRN PRN INJ SEE COMMENTS Last administered on 06/27/20at 22:46; Start 06/27/20 at 21:30; Stop 06/28/20 at 00:42; Status DC Oxytocin 500 ml @ 0 mls/hr CONT PRN PRN IV Post delivery bleeding Last administered on 06/27/20at 21:48; Start 06/27/20 at 21:30; Stop 06/28/20 at 00:42; Status DC Ibuprofen (Motrin) 800 mg PRN Q6HRS PRN PO MODERATE PAIN 4-6 Last administered on 06/28/20at 00:01; Start 06/27/20 at 21:30; Stop 06/28/20 at 00:42; Status DC Sodium Chloride (Normal Saline Flush) 10 ml QSHIFT PRN IV AFTER MEDS AND BLOOD DRAWS; Start 06/28/20 at 00:45 Oxytocin 500 ml @ 62.5 mls/hr CONT PRN IV SEE I/O RECORD; Start 06/28/20 at 00:45; Stop 06/28/20 at 08:44; Status DC Acetaminophen (Tylenol) 650 mg PRN Q6HRS PRN PO MILD PAIN / TEMP > 100.3'F; Start 06/28/20 at 00:45 Ibuprofen (Motrin) 800 mg Q8HRS PO Last administered on 06/28/20at 08:31; Start 06/28/20 at 06:00; Stop 06/28/20 at 15:11; Status DC Docusate Sodium (Colace) 100 mg PRN BID PRN PO HARD STOOLS Last administered on 06/29/20at 08:43; Start 06/28/20 at 00:45 Magnesium Hydroxide (Milk Of Magnesia) 2,400 mg PRN DAILY PRN PO CONSTIPATION; Start 06/28/20 at 00:45 Al Hydroxide/Mg Hydroxide (Mylanta Plus Xs) 30 ml PRN Q4HRS PRN PO HEARTBURN / GAS; Start 06/28/20 at 00:45 Simethicone (Gas-X) 80 mg PRN AFTMEALHC PRN PO GAS / BLOATING; Start 06/28/20 at 00:45 Diphenhydramine HCl (Benadryl) 25 mg PRN Q6HRS PRN PO ITCHING; Start 06/28/20 at 00:45 Benzocaine (Americaine) 1 spray PRN QID PRN TP TOPICAL PAIN; Start 06/28/20 at 00:45 Phenyleph/Shark Oil/Min Oil/Petrol (Preparation H) 1 matilda PRN QID PRN RC RECTAL PAIN; Start 06/28/20 at 00:45 Hydrocortisone (Cortaid) 1 matilda PRN QID PRN TP PERINEAL PAIN; Start 06/28/20 at 00:45 Ferrous Sulfate (Feosol) 325 mg BIDWMEALS PO ; Start 06/29/20 at 08:00 Zolpidem Tartrate (Ambien) 5 mg PRN QHS PRN PO INSOMNIA, MAY REPEAT X1; Start 06/28/20 at 00:45 Info (Do NOT chart on this placeholder) 1 ea 1X PRN PRN MC SEE COMMENTS; Start 06/28/20 at 00:45 Multivitamins (Thera M Plus) 1 tab DAILY PO Last administered on 06/29/20at 08:15; Start 06/28/20 at 09:00 Acetaminophen/ Hydrocodone Bitart (Lortab 5/325) 1 tab PRN Q4HRS PRN PO MILD PAIN 1-3; Start 06/28/20 at 00:45 Acetaminophen/ Hydrocodone Bitart (Lortab 5/325) 2 tab PRN Q4HRS PRN PO MODERATE PAIN, SEVERE PAIN; Start 06/28/20 at 00:45 Aspirin (Ecotrin) 81 mg DAILYWBKFT PO Last administered on 06/28/20at 12:46; Start 06/28/20 at 12:00 Magnesium Sulfate 500 ml @ 25 mls/hr Q20H IV Last administered on 06/29/20at 06:06; Start 06/28/20 at 12:00 Magnesium Sulfate 100 ml @ 25 mls/hr 1X ONCE IV Last administered on 06/28/20at 12:17; Start 06/28/20 at 13:00; Stop 06/28/20 at 16:59; Status DC Sodium Chloride 1,000 ml @ 100 mls/hr Q10H IV Last administered on 06/29/20at 01:46; Start 06/28/20 at 15:15 Active Scripts Active Augmentin 875-125 Tablet (Amoxicillin/Potassium Clav) 1 Each Tablet 1 Tab PO BID 10 Days Exam Refer to Para exam Assessment PPD#2 s/p Severe Preeclampsia with HELP syndrome: improving Plan of Care: Continue current Tx, Mgmt (If labs continue to improve, then anticipate d/c home tomorrow. ) SALEEM SINGH Jr, MD Jun 29, 2020 10:13
--- NOTE | 2020-06-29 10:41 | PDOC ---
Infectious Disease Note Subjective: Subjective pt feels better today more alert Says continues to feel tired Denies fever, nausea, vomiting, diarrhea, abdominal pain, headache, sore throat, shortness of breath or cough Vital Signs: Vital Signs Vital Signs Date Time Temp Pulse Resp B/P (MAP) Pulse Ox O2 Delivery O2 Flow Rate FiO2 06/29/20 09:22 98 20 106/68 (81) Room Air 06/29/20 06:09 97.5 97.5 06/29/20 02:05 100 Physical Exam: PHYSICAL EXAM GENERAL: Alert, oriented x 3 female, lying in bed comfortably, in no acute distress. HEENT: Normocephalic, atraumatic, anicteric. No thrush. NECK: Supple, no JVD. LUNGS: Clear bilaterally. No wheezing. HEART: S1, S2. No gallops or murmurs. ABDOMEN: Soft, bowel sounds present, nontender, nondistended. EXTREMITIES: No edema, no cyanosis. DERMATOLOGIC: Warm, dry. No generalized rash. NEUROLOGIC: Alert, oriented x 3, grossly nonfocal. PSYCHIATRIC: Cooperative, calm. Medications: Inpatient Meds: Current Medications Medications (Trade) Dose Ordered Sig/Mary Ann Start Time Stop Time Status Last Admin Dose Admin Acetaminophen (Tylenol) 650 mg PRN Q6HRS PRN 06/28/20 00:45 Acetaminophen/ Hydrocodone Bitart (Lortab 5/325) 2 tab PRN Q4HRS PRN 06/28/20 00:45 Al Hydroxide/Mg Hydroxide (Mylanta Plus Xs) 30 ml PRN Q4HRS PRN 06/28/20 00:45 Aspirin (Ecotrin) 81 mg DAILYWBKFT 06/28/20 12:00 06/28/20 12:46 81 MG Benzocaine (Americaine) 1 spray PRN QID PRN 06/28/20 00:45 Butorphanol Tartrate (Stadol) 2 mg PRN Q1HR PRN 06/27/20 21:30 06/28/20 00:42 DC Diphenhydramine HCl (Benadryl) 25 mg PRN Q6HRS PRN 06/28/20 00:45 Docusate Sodium (Colace) 100 mg PRN BID PRN 06/28/20 00:45 06/29/20 08:43 100 MG Fentanyl Citrate (Fentanyl 2ml Vial) 100 mcg PRN Q30MIN PRN 06/27/20 21:30 06/28/20 00:42 DC Ferrous Sulfate (Feosol) 325 mg BIDWMEALS 06/29/20 08:00 Hydrocortisone (Cortaid) 1 matilda PRN QID PRN 06/28/20 00:45 Ibuprofen (Motrin) 800 mg Q8HRS 06/28/20 06:00 06/28/20 15:11 DC 06/28/20 08:31 800 MG Info (Do NOT chart on this placeholder) 1 ea 1X PRN PRN 06/28/20 00:45 Lidocaine HCl (Xylocaine 1% Pf 30ml Vial) 30 ml 1X PRN PRN 06/27/20 21:30 06/28/20 00:42 DC 06/27/20 22:46 30 ML Magnesium Hydroxide (Milk Of Magnesia) 2,400 mg PRN DAILY PRN 06/28/20 00:45 Magnesium Sulfate 100 ml @ 25 mls/hr 1X ONCE 06/28/20 13:00 06/28/20 16:59 DC 06/28/20 12:17 25 MLS/HR Multivitamins (Thera M Plus) 1 tab DAILY 06/28/20 09:00 06/29/20 08:15 1 TAB Ondansetron HCl (Zofran) 4 mg PRN Q6HRS PRN 06/27/20 21:30 06/28/20 00:42 DC Oxytocin 500 ml @ 62.5 mls/hr CONT PRN 06/28/20 00:45 06/28/20 08:44 DC Phenyleph/Shark Oil/Min Oil/Petrol (Preparation H) 1 matilda PRN QID PRN 06/28/20 00:45 Ringer's Solution 1,000 ml @ 125 mls/hr Q8H PRN 06/27/20 21:30 06/28/20 00:42 DC Simethicone (Gas-X) 80 mg PRN AFTMEALHC PRN 06/28/20 00:45 Sodium Chloride 1,000 ml @ 100 mls/hr Q10H 06/28/20 15:15 06/29/20 01:46 100 MLS/HR Sodium Chloride (Normal Saline Flush) 10 ml QSHIFT PRN 06/28/20 00:45 Terbutaline Sulfate (Brethine) 0.25 mg 1X PRN PRN 06/27/20 21:30 06/28/20 00:42 DC Zolpidem Tartrate (Ambien) 5 mg PRN QHS PRN 06/28/20 00:45 Labs: Lab Laboratory Tests Test 06/28/20 14:30 06/28/20 15:05 Urine Collection Type U cath Urine Color Yellow Urine Clarity Clear Urine pH 6.5 (<5.0-8.0) Urine Specific Thompson <=1.005 (1.000-1.030) Urine Protein Negative mg/dL (NEG-TRACE) Urine Glucose (UA) Negative mg/dL (NEG) Urine Ketones (Stick) Negative mg/dL (NEG) Urine Blood Small (NEG) Urine Nitrite Negative (NEG) Urine Bilirubin Negative (NEG) Urine Urobilinogen Dipstick 0.2 mg/dL (0.2 mg/dL) Urine Leukocyte Esterase Negative (NEG) Urine RBC 1-2 /HPF (0-2) Urine WBC Occ /HPF (0-4) Urine Squamous Epithelial Cells Few /LPF Urine Bacteria 0 /HPF (0-FEW) Urine Opiates Screen Neg (NEG) Urine Methadone Screen Neg (NEG) Urine Barbiturates Neg (NEG) Urine Phencyclidine Screen Neg (NEG) Urine Amphetamine/Methamphetamine Neg (NEG) Urine Benzodiazepines Screen Neg (NEG) Urine Cocaine Screen Neg (NEG) Urine Cannabinoids Screen Neg (NEG) Urine Ethyl Alcohol Neg (NEG) White Blood Count 15.5 x10^3/uL (4.0-11.0) Red Blood Count 3.87 x10^6/uL (3.50-5.40) Hemoglobin 11.4 g/dL (12.0-15.5) Hematocrit 34.7 % (36.0-47.0) Mean Corpuscular Volume 90 fL (79-100) Mean Corpuscular Hemoglobin 29 pg (25-35) Mean Corpuscular Hemoglobin Concent 33 g/dL (31-37) Red Cell Distribution Width 15.5 % (11.5-14.5) Platelet Count 211 x10^3/uL (140-400) Neutrophils (%) (Auto) 76 % (31-73) Lymphocytes (%) (Auto) 12 % (24-48) Monocytes (%) (Auto) 12 % (0-9) Eosinophils (%) (Auto) 0 % (0-3) Basophils (%) (Auto) 0 % (0-3) Neutrophils # (Auto) 11.7 x10^3/uL (1.8-7.7) Lymphocytes # (Auto) 1.8 x10^3/uL (1.0-4.8) Monocytes # (Auto) 1.8 x10^3/uL (0.0-1.1) Eosinophils # (Auto) 0.0 x10^3/uL (0.0-0.7) Basophils # (Auto) 0.1 x10^3/uL (0.0-0.2) Sodium Level 138 mmol/L (136-145) Potassium Level 4.3 mmol/L (3.5-5.1) Chloride Level 109 mmol/L (98-107) Carbon Dioxide Level 17 mmol/L (21-32) Anion Gap 12 (6-14) Blood Urea Nitrogen 12 mg/dL (7-20) Creatinine 2.6 mg/dL (0.6-1.0) Estimated GFR (Cockcroft-Gault) 28.4 BUN/Creatinine Ratio 5 (6-20) Glucose Level 90 mg/dL (70-99) Calcium Level 9.7 mg/dL (8.5-10.1) Magnesium Level 4.6 mg/dL (1.8-2.4) Total Bilirubin 7.4 mg/dL (0.2-1.0) Aspartate Amino Transf (AST/SGOT) 401 U/L (15-37) Alanine Aminotransferase (ALT/SGPT) 356 U/L (14-59) Alkaline Phosphatase 608 U/L (46-116) Ammonia 45 mcmol/L (11-34) Total Protein 5.4 g/dL (6.4-8.2) Albumin 1.9 g/dL (3.4-5.0) Albumin/Globulin Ratio 0.5 (1.0-1.7) Objective: Assessment: 1. COVID-19 PCR positive , corrected report now SARS Covid rapid negative ,on RA 2. Leukocytosis, likely reactive. 3. Acute kidney injury.Metabolic acidosis. 4. Abnormal LFTs with hyperbilirubinemia. Etiology unclear 5. day 2, vaginal delivery. Plan: Plan of Care 1. Continue supportive care.pt is on RA and has no respiratory symptoms at this time. 2. follow up hepatitis panel and urine for chlamydia and gonorrhea 3. Gastrointestinal and Renal team have been consulted. 4. RPR is negative. 5. Maintain isolation precautions Discussed with YARI. DULCE INFANTE MD Jun 29, 2020 10:41
[2020-06-29 11:23] LABS: BASO % 0 % (0-3); EOS % 0 % (0-3); HEMATOCRIT 31.4 % (36.0-47.0); HEMOGLOBIN 10.3 g/dL (12.0-15.5); LYMPH # 2.2 x10^3/uL (1.0-4.8); LYMPH % 16 % (24-48); MEAN CORPUSCULAR HEMOGLOBIN 29 pg (25-35); MEAN CORPUSCULAR HGB CONC 33 g/dL (31-37); MEAN CORPUSCULAR VOLUME 90 fL (79-100); MONO % 8 % (0-9); NEUT % 76 % (31-73); PLATELET COUNT 188 x10^3/uL (140-400); RED CELL DISTRIBUTION WIDTH 15.5 % (11.5-14.5); WHITE BLOOD COUNT 13.3 x10^3/uL (4.0-11.0)
[2020-06-29 11:44] LABS: ALBUMIN 1.6 g/dL (3.4-5.0); ALBUMIN/GLOBULIN RATIO 0.5 (1.0-1.7); CREATININE 2.5 mg/dL (0.6-1.0); GFR 29.7; POTASSIUM 3.9 mmol/L (3.5-5.1); TOTAL BILIRUBIN 7.6 mg/dL (0.2-1.0); TOTAL PROTEIN 4.7 g/dL (6.4-8.2)
[2020-06-29] MEDS: ASPIRIN ENTERIC COATED 81 MG TABLET.DR. PO SCH (13:54)
[2020-06-29 15:03] LABS: BILIRUBIN,URINE NEGATIVE (NEG); CLARITY,URINE CLEAR; COLOR,URINE YELLOW; NITRITE,URINE NEGATIVE (NEG); PH,URINE 6.5 (<5.0-8.0); PROTEIN,URINE NEGATIVE (NEG-TRACE); UROBILINOGEN,URINE 0.2 mg/dL (0.2 mg/dL)
--- NOTE | 2020-06-29 15:07 | PDOC ---
DATE OF SERVICE: DOS: DATE: 06/29/20 TIME: 15:05 SUBJECTIVE ROS Asked to see for acute kidney injury Patient back in COVID-19 isolation now since he tested positive Was unable to physically see the patient since she was pumping OBJECTIVE Vital Signs Vital Signs Date Time Temp Pulse Resp B/P (MAP) Pulse Ox O2 Delivery O2 Flow Rate FiO2 06/29/20 12:29 97.9 85 20 100/67 (78) 97.9 06/29/20 11:00 Room Air 06/29/20 02:05 100 I & 0 Intake and Output 06/29/20 07:00 Intake Total 3008 ml Output Total 3250 ml Balance -242 ml Intake Oral 1600 ml Blood Product IV Normal Saline Flush 250 ml Other 1158 ml Output Urine Total 3250 ml PHYSICAL EXAM Physical Exam Unable to physically examine patient due to COVID-19 isolation DIAGNOSIS/ASSESSMENT Assessment & Plan Acute kidney injury: UA looked benign. UDS is still pending. Urine output is adequate on IV fluids. Small amounts of blood probably associated with recent delivery. Continue IV fluids for now and reassess response to the same. It is reported that patient was taking NSAIDs almost all through her . In- house NSAIDs have been discontinued Possible intravascular volume depletion: Continue gentle IV fluids as ordered Mild metabolic acidosis: Change IV fluids to bicarb containing fluids in the form of IV lactated Ringer's Severe hypoalbuminemia with elevated LFTs and elevated bilirubin: Consider GI evaluation. Platelets are noted to be adequate but gradually dropping. COVID-19 positive COMMENT/RELEVANT DATA Meds Current Medications Medications (Trade) Dose Ordered Sig/Mary Ann Start Time Stop Time Status Last Admin Dose Admin Acetaminophen (Tylenol) 650 mg PRN Q6HRS PRN 06/28/20 00:45 Acetaminophen/ Hydrocodone Bitart (Lortab 5/325) 2 tab PRN Q4HRS PRN 06/28/20 00:45 Al Hydroxide/Mg Hydroxide (Mylanta Plus Xs) 30 ml PRN Q4HRS PRN 06/28/20 00:45 Aspirin (Ecotrin) 81 mg DAILYWBKFT 06/28/20 12:00 06/29/20 13:54 81 MG Benzocaine (Americaine) 1 spray PRN QID PRN 06/28/20 00:45 Butorphanol Tartrate (Stadol) 2 mg PRN Q1HR PRN 06/27/20 21:30 06/28/20 00:42 DC Diphenhydramine HCl (Benadryl) 25 mg PRN Q6HRS PRN 06/28/20 00:45 Docusate Sodium (Colace) 100 mg PRN BID PRN 06/28/20 00:45 06/29/20 08:43 100 MG Fentanyl Citrate (Fentanyl 2ml Vial) 100 mcg PRN Q30MIN PRN 06/27/20 21:30 06/28/20 00:42 DC Ferrous Sulfate (Feosol) 325 mg BIDWMEALS 06/29/20 08:00 Hydrocortisone (Cortaid) 1 matilda PRN QID PRN 06/28/20 00:45 Ibuprofen (Motrin) 800 mg Q8HRS 06/28/20 06:00 06/28/20 15:11 DC 06/28/20 08:31 800 MG Info (Do NOT chart on this placeholder) 1 ea 1X PRN PRN 06/28/20 00:45 Lidocaine HCl (Xylocaine 1% Pf 30ml Vial) 30 ml 1X PRN PRN 06/27/20 21:30 06/28/20 00:42 DC 06/27/20 22:46 30 ML Magnesium Hydroxide (Milk Of Magnesia) 2,400 mg PRN DAILY PRN 06/28/20 00:45 Magnesium Sulfate 100 ml @ 25 mls/hr 1X ONCE 06/28/20 13:00 06/28/20 16:59 DC 06/28/20 12:17 25 MLS/HR Multivitamins (Thera M Plus) 1 tab DAILY 06/28/20 09:00 06/29/20 08:15 1 TAB Ondansetron HCl (Zofran) 4 mg PRN Q6HRS PRN 06/27/20 21:30 06/28/20 00:42 DC Oxytocin 500 ml @ 62.5 mls/hr CONT PRN 06/28/20 00:45 06/28/20 08:44 DC Phenyleph/Shark Oil/Min Oil/Petrol (Preparation H) 1 matilda PRN QID PRN 06/28/20 00:45 Ringer's Solution 1,000 ml @ 125 mls/hr Q8H PRN 06/27/20 21:30 06/28/20 00:42 DC Simethicone (Gas-X) 80 mg PRN AFTMEALHC PRN 06/28/20 00:45 Sodium Chloride 1,000 ml @ 100 mls/hr Q10H 06/28/20 15:15 06/29/20 11:29 100 MLS/HR Sodium Chloride (Normal Saline Flush) 10 ml QSHIFT PRN 06/28/20 00:45 Terbutaline Sulfate (Brethine) 0.25 mg 1X PRN PRN 06/27/20 21:30 06/28/20 00:42 DC Zolpidem Tartrate (Ambien) 5 mg PRN QHS PRN 06/28/20 00:45 Lab Laboratory Tests Test 06/29/20 10:45 White Blood Count 13.3 x10^3/uL (4.0-11.0) Red Blood Count 3.50 x10^6/uL (3.50-5.40) Hemoglobin 10.3 g/dL (12.0-15.5) Hematocrit 31.4 % (36.0-47.0) Mean Corpuscular Volume 90 fL (79-100) Mean Corpuscular Hemoglobin 29 pg (25-35) Mean Corpuscular Hemoglobin Concent 33 g/dL (31-37) Red Cell Distribution Width 15.5 % (11.5-14.5) Platelet Count 188 x10^3/uL (140-400) Neutrophils (%) (Auto) 76 % (31-73) Lymphocytes (%) (Auto) 16 % (24-48) Monocytes (%) (Auto) 8 % (0-9) Eosinophils (%) (Auto) 0 % (0-3) Basophils (%) (Auto) 0 % (0-3) Neutrophils # (Auto) 10.0 x10^3/uL (1.8-7.7) Lymphocytes # (Auto) 2.2 x10^3/uL (1.0-4.8) Monocytes # (Auto) 1.0 x10^3/uL (0.0-1.1) Eosinophils # (Auto) 0.0 x10^3/uL (0.0-0.7) Basophils # (Auto) 0.0 x10^3/uL (0.0-0.2) Sodium Level 137 mmol/L (136-145) Potassium Level 3.9 mmol/L (3.5-5.1) Chloride Level 110 mmol/L (98-107) Carbon Dioxide Level 16 mmol/L (21-32) Anion Gap 11 (6-14) Blood Urea Nitrogen 12 mg/dL (7-20) Creatinine 2.5 mg/dL (0.6-1.0) Estimated GFR (Cockcroft-Gault) 29.7 BUN/Creatinine Ratio 5 (6-20) Glucose Level 92 mg/dL (70-99) Calcium Level 9.0 mg/dL (8.5-10.1) Total Bilirubin 7.6 mg/dL (0.2-1.0) Aspartate Amino Transf (AST/SGOT) 215 U/L (15-37) Alanine Aminotransferase (ALT/SGPT) 247 U/L (14-59) Alkaline Phosphatase 509 U/L (46-116) Total Protein 4.7 g/dL (6.4-8.2) Albumin 1.6 g/dL (3.4-5.0) Albumin/Globulin Ratio 0.5 (1.0-1.7) Results All relevant outside records, renal labs, imaging studies, telemetry/EKG's were reviewed. Justicifation of Admission Dx: Justifications for Admission: Justification of Admission Dx: Yes Sepsis: Infection PING INFANTE MD Jun 29, 2020 15:07
[2020-06-29 15:12] LABS: BACTERIA,URINE FEW /HPF (0-FEW); RBC,URINE 0 /HPF (0-2)
[2020-06-29] MEDS: FERROUS SULFATE 325 MG TABLET. PO SCH (17:00)
[2020-06-30 02:44] VITALS: BP 112/73
[2020-06-30] MEDS: MAGNESIUM SULFATE 20GM 500 ML IV SCH (04:00)
[2020-06-30 05:09] VITALS: BP 112/76
[2020-06-30 07:30] VITALS: BP 111/74
--- NOTE | 2020-06-30 07:30 | NUR ---
Dr. Burnett notified of pt. confusion/lethargy this AM RN discusses pt. exhibiting L hand weakness and dropping items, states he will come to the bedside to assess pt. Addendum: 06/30/20 at 1137 by ELIZABETH GRAJEDA RN this took place at 0830
[2020-06-30] MEDS: FERROUS SULFATE 325 MG TABLET. PO SCH ×2 (08:00→17:00)
--- NOTE | 2020-06-30 08:00 | NUR ---
per Navya Graham pt. is to remain in isolation at this time
--- NOTE | 2020-06-30 08:37 | NUR ---
Dr Walden calls for update on pt. RN notifies him of pt. confusion/lethargy and L hand weakness, previous day's labs reviewed with him at this time.
--- NOTE | 2020-06-30 09:02 | PDOC ---
PROGRESS NOTES Date of Service DATE: 06/30/20 TIME: 08:55 Subjective Subjective Patient reported to be more lethargic and having unsteady gate with weakness. Patient patient slow to respond but does respond appropriately. Patient lethargic compared to baseline Objective Objective Vital Signs Date Time Temp Pulse Resp B/P (MAP) Pulse Ox O2 Delivery O2 Flow Rate FiO2 06/30/20 05:09 97.7 81 18 112/76 (88) 98 Room Air 97.7 Intake and Output 06/30/20 07:00 Intake Total 1540 ml Output Total 3900 ml Balance -2360 ml Intake Oral 340 ml IV Total 1200 ml Output Urine Total 3900 ml Physical Exam Abdomen: Normal bowel sounds Heart: Regular rate Extremities: No edema General: Other (sleepy) HEENT: PERRLA Lungs: Clear to auscultation MUSCULOSKELETAL: Other (mild weakness) Neuro: Other (unsteady) Skin: Other (Mild jaundice improved) Assessment Assessment PPD#3 Pre-eclampsia Help syndrome ARF Elevated Liver functions Metabolic encephalopathy S/P suspected placental abruption Covid 19 + Plan Plan of Care Consult GI per renal request Check CT brain w/o contrast Repeat labs and ammonia level Continue IV fluids consider PT/OT eval and treat Comment Review of Relevant I have reviewed the following items cecilia (where applicable) has been applied. Labs Laboratory Tests Test 06/28/20 09:15 06/28/20 14:30 06/28/20 15:05 06/29/20 10:45 White Blood Count 16.1 x10^3/uL (4.0-11.0) 15.5 x10^3/uL (4.0-11.0) 13.3 x10^3/uL (4.0-11.0) Red Blood Count 4.13 x10^6/uL (3.50-5.40) 3.87 x10^6/uL (3.50-5.40) 3.50 x10^6/uL (3.50-5.40) Hemoglobin 12.2 g/dL (12.0-15.5) 11.4 g/dL (12.0-15.5) 10.3 g/dL (12.0-15.5) Hematocrit 37.4 % (36.0-47.0) 34.7 % (36.0-47.0) 31.4 % (36.0-47.0) Mean Corpuscular Volume 91 fL (79-100) 90 fL (79-100) 90 fL (79-100) Mean Corpuscular Hemoglobin 30 pg (25-35) 29 pg (25-35) 29 pg (25-35) Mean Corpuscular Hemoglobin Concent 33 g/dL (31-37) 33 g/dL (31-37) 33 g/dL (31-37) Red Cell Distribution Width 15.5 % (11.5-14.5) 15.5 % (11.5-14.5) 15.5 % (11.5-14.5) Platelet Count 211 x10^3/uL (140-400) 211 x10^3/uL (140-400) 188 x10^3/uL (140-400) Neutrophils (%) (Auto) 76 % (31-73) 76 % (31-73) 76 % (31-73) Lymphocytes (%) (Auto) 12 % (24-48) 12 % (24-48) 16 % (24-48) Monocytes (%) (Auto) 12 % (0-9) 12 % (0-9) 8 % (0-9) Eosinophils (%) (Auto) 0 % (0-3) 0 % (0-3) 0 % (0-3) Basophils (%) (Auto) 0 % (0-3) 0 % (0-3) 0 % (0-3) Neutrophils # (Auto) 12.2 x10^3/uL (1.8-7.7) 11.7 x10^3/uL (1.8-7.7) 10.0 x10^3/uL (1.8-7.7) Lymphocytes # (Auto) 2.0 x10^3/uL (1.0-4.8) 1.8 x10^3/uL (1.0-4.8) 2.2 x10^3/uL (1.0-4.8) Monocytes # (Auto) 1.9 x10^3/uL (0.0-1.1) 1.8 x10^3/uL (0.0-1.1) 1.0 x10^3/uL (0.0-1.1) Eosinophils # (Auto) 0.0 x10^3/uL (0.0-0.7) 0.0 x10^3/uL (0.0-0.7) 0.0 x10^3/uL (0.0-0.7) Basophils # (Auto) 0.0 x10^3/uL (0.0-0.2) 0.1 x10^3/uL (0.0-0.2) 0.0 x10^3/uL (0.0-0.2) Segmented Neutrophils % 62 % (35-66) Band Neutrophils % 12 % (0-9) Lymphocytes % 10 % (24-48) Monocytes % 9 % (0-10) Metamyelocytes % 4 % (0-0) Myelocytes % 3 % (0-0) Nucleated Red Blood Cells 3 Platelet Estimate Adequate (ADEQUATE) Large Platelets Few Giant Platelets Occ Daljit Cells Many Sodium Level 138 mmol/L (136-145) 138 mmol/L (136-145) 137 mmol/L (136-145) Potassium Level 4.6 mmol/L (3.5-5.1) 4.3 mmol/L (3.5-5.1) 3.9 mmol/L (3.5-5.1) Chloride Level 108 mmol/L (98-107) 109 mmol/L (98-107) 110 mmol/L (98-107) Carbon Dioxide Level 15 mmol/L (21-32) 17 mmol/L (21-32) 16 mmol/L (21-32) Anion Gap 15 (6-14) 12 (6-14) 11 (6-14) Blood Urea Nitrogen 12 mg/dL (7-20) 12 mg/dL (7-20) 12 mg/dL (7-20) Creatinine 2.7 mg/dL (0.6-1.0) 2.6 mg/dL (0.6-1.0) 2.5 mg/dL (0.6-1.0) Estimated GFR (Cockcroft-Gault) 27.2 28.4 29.7 BUN/Creatinine Ratio 4 (6-20) 5 (6-20) 5 (6-20) Glucose Level 73 mg/dL (70-99) 90 mg/dL (70-99) 92 mg/dL (70-99) Calcium Level 9.8 mg/dL (8.5-10.1) 9.7 mg/dL (8.5-10.1) 9.0 mg/dL (8.5-10.1) Total Bilirubin 8.0 mg/dL (0.2-1.0) 7.4 mg/dL (0.2-1.0) 7.6 mg/dL (0.2-1.0) Aspartate Amino Transf (AST/SGOT) 496 U/L (15-37) 401 U/L (15-37) 215 U/L (15-37) Alanine Aminotransferase (ALT/SGPT) 422 U/L (14-59) 356 U/L (14-59) 247 U/L (14-59) Alkaline Phosphatase 643 U/L (46-116) 608 U/L (46-116) 509 U/L (46-116) Total Protein 5.9 g/dL (6.4-8.2) 5.4 g/dL (6.4-8.2) 4.7 g/dL (6.4-8.2) Albumin 2.1 g/dL (3.4-5.0) 1.9 g/dL (3.4-5.0) 1.6 g/dL (3.4-5.0) Albumin/Globulin Ratio 0.6 (1.0-1.7) 0.5 (1.0-1.7) 0.5 (1.0-1.7) Urine Collection Type U cath Urine Color Yellow Urine Clarity Clear Urine pH 6.5 (<5.0-8.0) Urine Specific [place] <=1.005 (1.000-1.030) Urine Protein Negative mg/dL (NEG-TRACE) Urine Glucose (UA) Negative mg/dL (NEG) Urine Ketones (Stick) Negative mg/dL (NEG) Urine Blood Small (NEG) Urine Nitrite Negative (NEG) Urine Bilirubin Negative (NEG) Urine Urobilinogen Dipstick 0.2 mg/dL (0.2 mg/dL) Urine Leukocyte Esterase Negative (NEG) Urine RBC 1-2 /HPF (0-2) Urine WBC Occ /HPF (0-4) Urine Squamous Epithelial Cells Few /LPF Urine Bacteria 0 /HPF (0-FEW) Urine Opiates Screen Neg (NEG) Urine Methadone Screen Neg (NEG) Urine Barbiturates Neg (NEG) Urine Phencyclidine Screen Neg (NEG) Urine Amphetamine/Methamphetamine Neg (NEG) Urine Benzodiazepines Screen Neg (NEG) Urine Cocaine Screen Neg (NEG) Urine Cannabinoids Screen Neg (NEG) Urine Ethyl Alcohol Neg (NEG) Magnesium Level 4.6 mg/dL (1.8-2.4) Ammonia 45 mcmol/L (11-34) Test 06/29/20 14:45 Urine Collection Type Unknown Urine Color Yellow Urine Clarity Clear Urine pH 6.5 (<5.0-8.0) Urine Specific [place] <=1.005 (1.000-1.030) Urine Protein Negative mg/dL (NEG-TRACE) Urine Glucose (UA) Negative mg/dL (NEG) Urine Ketones (Stick) Negative mg/dL (NEG) Urine Blood Negative (NEG) Urine Nitrite Negative (NEG) Urine Bilirubin Negative (NEG) Urine Urobilinogen Dipstick 0.2 mg/dL (0.2 mg/dL) Urine Leukocyte Esterase Small (NEG) Urine RBC 0 /HPF (0-2) Urine WBC 1-4 /HPF (0-4) Urine Squamous Epithelial Cells Mod /LPF Urine Bacteria Few /HPF (0-FEW) Urine Mucus Slight /LPF Laboratory Tests Test 06/29/20 10:45 06/29/20 14:45 White Blood Count 13.3 x10^3/uL (4.0-11.0) Red Blood Count 3.50 x10^6/uL (3.50-5.40) Hemoglobin 10.3 g/dL (12.0-15.5) Hematocrit 31.4 % (36.0-47.0) Mean Corpuscular Volume 90 fL (79-100) Mean Corpuscular Hemoglobin 29 pg (25-35) Mean Corpuscular Hemoglobin Concent 33 g/dL (31-37) Red Cell Distribution Width 15.5 % (11.5-14.5) Platelet Count 188 x10^3/uL (140-400) Neutrophils (%) (Auto) 76 % (31-73) Lymphocytes (%) (Auto) 16 % (24-48) Monocytes (%) (Auto) 8 % (0-9) Eosinophils (%) (Auto) 0 % (0-3) Basophils (%) (Auto) 0 % (0-3) Neutrophils # (Auto) 10.0 x10^3/uL (1.8-7.7) Lymphocytes # (Auto) 2.2 x10^3/uL (1.0-4.8) Monocytes # (Auto) 1.0 x10^3/uL (0.0-1.1) Eosinophils # (Auto) 0.0 x10^3/uL (0.0-0.7) Basophils # (Auto) 0.0 x10^3/uL (0.0-0.2) Sodium Level 137 mmol/L (136-145) Potassium Level 3.9 mmol/L (3.5-5.1) Chloride Level 110 mmol/L (98-107) Carbon Dioxide Level 16 mmol/L (21-32) Anion Gap 11 (6-14) Blood Urea Nitrogen 12 mg/dL (7-20) Creatinine 2.5 mg/dL (0.6-1.0) Estimated GFR (Cockcroft-Gault) 29.7 BUN/Creatinine Ratio 5 (6-20) Glucose Level 92 mg/dL (70-99) Calcium Level 9.0 mg/dL (8.5-10.1) Total Bilirubin 7.6 mg/dL (0.2-1.0) Aspartate Amino Transf (AST/SGOT) 215 U/L (15-37) Alanine Aminotransferase (ALT/SGPT) 247 U/L (14-59) Alkaline Phosphatase 509 U/L (46-116) Total Protein 4.7 g/dL (6.4-8.2) Albumin 1.6 g/dL (3.4-5.0) Albumin/Globulin Ratio 0.5 (1.0-1.7) Urine Collection Type Unknown Urine Color Yellow Urine Clarity Clear Urine pH 6.5 (<5.0-8.0) Urine Specific [place] <=1.005 (1.000-1.030) Urine Protein Negative mg/dL (NEG-TRACE) Urine Glucose (UA) Negative mg/dL (NEG) Urine Ketones (Stick) Negative mg/dL (NEG) Urine Blood Negative (NEG) Urine Nitrite Negative (NEG) Urine Bilirubin Negative (NEG) Urine Urobilinogen Dipstick 0.2 mg/dL (0.2 mg/dL) Urine Leukocyte Esterase Small (NEG) Urine RBC 0 /HPF (0-2) Urine WBC 1-4 /HPF (0-4) Urine Squamous Epithelial Cells Mod /LPF Urine Bacteria Few /HPF (0-FEW) Urine Mucus Slight /LPF Medications Current Medications Ringer's Solution 1,000 ml @ 125 mls/hr Q8H PRN IV hydration Last administered on 06/28/20at 12:20; Start 06/27/20 at 21:30 Acetaminophen (Tylenol) 650 mg PRN Q6HRS PRN PO MILD PAIN, TEMP > 100.5'F; Start 06/27/20 at 21:30; Stop 06/28/20 at 00:42; Status DC Ondansetron HCl (Zofran) 4 mg PRN Q6HRS PRN IVP NAUSEA 1ST CHOICE; Start 06/27/20 at 21:30; Stop 06/28/20 at 00:42; Status DC Sodium Chloride (Normal Saline Flush) 3 ml QSHIFT PRN IV AFTER MEDS AND BLOOD DRAWS; Start 06/27/20 at 21:30; Stop 06/28/20 at 00:42; Status DC Ringer's Solution 1,000 ml @ 125 mls/hr Q8H PRN IV hydration; Start 06/27/20 at 21:30; Stop 06/28/20 at 00:42; Status DC Butorphanol Tartrate (Stadol) 2 mg PRN Q1HR PRN IVP Severe labor pain; Start 06/27/20 at 21:30; Stop 06/28/20 at 00:42; Status DC Fentanyl Citrate (Fentanyl 2ml Vial) 100 mcg PRN Q30MIN PRN IVP Severe pain; Start 06/27/20 at 21:30; Stop 06/28/20 at 00:42; Status DC Terbutaline Sulfate (Brethine) 0.25 mg 1X PRN PRN SQ SEE COMMENTS; Start 06/27/20 at 21:30; Stop 06/28/20 at 00:42; Status DC Lidocaine HCl (Xylocaine 1% Pf 30ml Vial) 30 ml 1X PRN PRN INJ SEE COMMENTS Last administered on 06/27/20at 22:46; Start 06/27/20 at 21:30; Stop 06/28/20 at 00:42; Status DC Oxytocin 500 ml @ 0 mls/hr CONT PRN PRN IV Post delivery bleeding Last administered on 06/27/20at 21:48; Start 06/27/20 at 21:30; Stop 06/28/20 at 00:42; Status DC Ibuprofen (Motrin) 800 mg PRN Q6HRS PRN PO MODERATE PAIN 4-6 Last administered on 06/28/20at 00:01; Start 06/27/20 at 21:30; Stop 06/28/20 at 00:42; Status DC Sodium Chloride (Normal Saline Flush) 10 ml QSHIFT PRN IV AFTER MEDS AND BLOOD DRAWS; Start 06/28/20 at 00:45 Oxytocin 500 ml @ 62.5 mls/hr CONT PRN IV SEE I/O RECORD; Start 06/28/20 at 00:45; Stop 06/28/20 at 08:44; Status DC Acetaminophen (Tylenol) 650 mg PRN Q6HRS PRN PO MILD PAIN / TEMP > 100.3'F; Start 06/28/20 at 00:45 Ibuprofen (Motrin) 800 mg Q8HRS PO Last administered on 06/28/20at 08:31; Start 06/28/20 at 06:00; Stop 06/28/20 at 15:11; Status DC Docusate Sodium (Colace) 100 mg PRN BID PRN PO HARD STOOLS Last administered on 06/29/20at 08:43; Start 06/28/20 at 00:45 Magnesium Hydroxide (Milk Of Magnesia) 2,400 mg PRN DAILY PRN PO CONSTIPATION; Start 06/28/20 at 00:45 Al Hydroxide/Mg Hydroxide (Mylanta Plus Xs) 30 ml PRN Q4HRS PRN PO HEARTBURN / GAS Last administered on 06/29/20at 17:02; Start 06/28/20 at 00:45 Simethicone (Gas-X) 80 mg PRN AFTMEALHC PRN PO GAS / BLOATING; Start 06/28/20 at 00:45 Diphenhydramine HCl (Benadryl) 25 mg PRN Q6HRS PRN PO ITCHING; Start 06/28/20 at 00:45 Benzocaine (Americaine) 1 spray PRN QID PRN TP TOPICAL PAIN; Start 06/28/20 at 00:45 Phenyleph/Shark Oil/Min Oil/Petrol (Preparation H) 1 matilda PRN QID PRN RC RECTAL PAIN; Start 06/28/20 at 00:45 Hydrocortisone (Cortaid) 1 matilda PRN QID PRN TP PERINEAL PAIN; Start 06/28/20 at 00:45 Ferrous Sulfate (Feosol) 325 mg BIDWMEALS PO ; Start 06/29/20 at 08:00 Zolpidem Tartrate (Ambien) 5 mg PRN QHS PRN PO INSOMNIA, MAY REPEAT X1; Start 06/28/20 at 00:45 Info (Do NOT chart on this placeholder) 1 ea 1X PRN PRN MC SEE COMMENTS; Start 06/28/20 at 00:45 Multivitamins (Thera M Plus) 1 tab DAILY PO Last administered on 06/29/20at 08:15; Start 06/28/20 at 09:00 Acetaminophen/ Hydrocodone Bitart (Lortab 5/325) 1 tab PRN Q4HRS PRN PO MILD PAIN 1-3 Last administered on 06/29/20at 20:53; Start 06/28/20 at 00:45 Acetaminophen/ Hydrocodone Bitart (Lortab 5/325) 2 tab PRN Q4HRS PRN PO MODERATE PAIN, SEVERE PAIN; Start 06/28/20 at 00:45 Aspirin (Ecotrin) 81 mg DAILYWBKFT PO Last administered on 06/29/20at 13:54; Start 06/28/20 at 12:00 Magnesium Sulfate 500 ml @ 25 mls/hr Q20H IV Last administered on 06/29/20at 06:06; Start 06/28/20 at 12:00 Magnesium Sulfate 100 ml @ 25 mls/hr 1X ONCE IV Last administered on 06/28/20at 12:17; Start 06/28/20 at 13:00; Stop 06/28/20 at 16:59; Status DC Sodium Chloride 1,000 ml @ 100 mls/hr Q10H IV Last administered on 06/29/20at 20:54; Start 06/28/20 at 15:15 Active Scripts Active Augmentin 875-125 Tablet (Amoxicillin/Potassium Clav) 1 Each Tablet 1 Tab PO BID 10 Days Vitals/I & O Vital Sign - Last 24 Hours 06/29/20 06/29/20 06/29/20 06/29/20 09:22 11:00 12:29 14:00 Temp 97.9 97.9 97.9 97.9 Pulse 98 79 85 87 Resp 20 20 20 22 B/P (MAP) 106/68 (81) 105/76 (86) 100/67 (78) 108/63 (78) Pulse Ox 99 O2 Delivery Room Air Room Air 06/29/20 06/29/20 06/29/20 06/29/20 17:54 20:19 20:53 23:04 Temp 97.2 97.0 99.3 97.2 97.0 99.3 Pulse 82 80 76 Resp 20 18 16 16 B/P (MAP) 115/81 (92) 114/77 (89) 110/53 (72) Pulse Ox 98 100 97 O2 Delivery Room Air Room Air Room Air 06/30/20 06/30/20 02:44 05:09 Temp 97.7 97.7 97.7 97.7 Pulse 81 81 Resp 18 18 B/P (MAP) 112/73 (86) 112/76 (88) Pulse Ox 100 98 O2 Delivery Room Air Room Air Intake and Output 06/29/20 06/29/20 06/30/20 15:00 23:00 07:00 Intake Total 440 ml 1100 ml Output Total 800 ml 2400 ml 700 ml Balance -360 ml -1300 ml -700 ml Justifications for Admission Other Justification SHAYE READ MD Jun 30, 2020 09:02
--- NOTE | 2020-06-30 10:21 | PDOC ---
DATE OF SERVICE DATE: 06/30/20 TIME: 10:21 SUBJECTIVE ROS Per RN report still confused but better OBJECTIVE Vital Signs Vital Signs Date Time Temp Pulse Resp B/P (MAP) Pulse Ox O2 Delivery O2 Flow Rate FiO2 06/30/20 07:30 98.1 76 16 111/74 (86) 100 Room Air 98.1 I & 0 Intake and Output 06/30/20 07:00 Intake Total 1540 ml Output Total 3900 ml Balance -2360 ml Intake Oral 340 ml IV Total 1200 ml Output Urine Total 3900 ml PHYSICAL EXAM Physical Exam GENERAL:no acute distress. HEENT: Normocephalic, atraumatic,OM moist NECK: Supple, no JVD. LUNGS: Clear bilaterally. Non labored HEART: S1, S2. ABDOMEN: Soft EXTREMITIES: No edema, no cyanosis. DERMATOLOGIC: Warm, dry. No generalized rash. NEUROLOGIC: Alert, oriented x 3, grossly nonfocal. DIAGNOSIS/ASSESSMENT Assessment & Plan Acute kidney injury: UA benign-no overt proteinuria or RBC's, no wbc or casts . Improving renal function Urine output is adequate It is reported that patient was taking NSAIDs almost all through her . In-house NSAIDs have been discontinued Possible intravascular volume depletion: Mild metabolic acidosis: Change IV fluids to bicarb containing fluids in the form of IV lactated Ringer's Severe hypoalbuminemia with elevated LFTs and elevated bilirubin: Consider GI evaluation. P COVID-19 positive S/p vaginal delivery/placental abruption 06/27/20 Elevated LFTs -- Hepatitis panel negative, normal liver on US COMMENT/RELEVANT DATA Meds Current Medications Medications (Trade) Dose Ordered Sig/Mary Ann Start Time Stop Time Status Last Admin Dose Admin Acetaminophen (Tylenol) 650 mg PRN Q6HRS PRN 06/28/20 00:45 Acetaminophen/ Hydrocodone Bitart (Lortab 5/325) 2 tab PRN Q4HRS PRN 06/28/20 00:45 Al Hydroxide/Mg Hydroxide (Mylanta Plus Xs) 30 ml PRN Q4HRS PRN 06/28/20 00:45 06/29/20 17:02 30 ML Aspirin (Ecotrin) 81 mg DAILYWBKFT 06/28/20 12:00 06/29/20 13:54 81 MG Benzocaine (Americaine) 1 spray PRN QID PRN 06/28/20 00:45 Butorphanol Tartrate (Stadol) 2 mg PRN Q1HR PRN 06/27/20 21:30 06/28/20 00:42 DC Diphenhydramine HCl (Benadryl) 25 mg PRN Q6HRS PRN 06/28/20 00:45 Docusate Sodium (Colace) 100 mg PRN BID PRN 06/28/20 00:45 06/29/20 08:43 100 MG Fentanyl Citrate (Fentanyl 2ml Vial) 100 mcg PRN Q30MIN PRN 06/27/20 21:30 06/28/20 00:42 DC Ferrous Sulfate (Feosol) 325 mg BIDWMEALS 06/29/20 08:00 Hydrocortisone (Cortaid) 1 matilda PRN QID PRN 06/28/20 00:45 Ibuprofen (Motrin) 800 mg Q8HRS 06/28/20 06:00 06/28/20 15:11 DC 06/28/20 08:31 800 MG Info (Do NOT chart on this placeholder) 1 ea 1X PRN PRN 06/28/20 00:45 Lidocaine HCl (Xylocaine 1% Pf 30ml Vial) 30 ml 1X PRN PRN 06/27/20 21:30 06/28/20 00:42 DC 06/27/20 22:46 30 ML Magnesium Hydroxide (Milk Of Magnesia) 2,400 mg PRN DAILY PRN 06/28/20 00:45 Magnesium Sulfate 100 ml @ 25 mls/hr 1X ONCE 06/28/20 13:00 06/28/20 16:59 DC 06/28/20 12:17 25 MLS/HR Multivitamins (Thera M Plus) 1 tab DAILY 06/28/20 09:00 06/29/20 08:15 1 TAB Ondansetron HCl (Zofran) 4 mg PRN Q6HRS PRN 06/27/20 21:30 06/28/20 00:42 DC Oxytocin 500 ml @ 62.5 mls/hr CONT PRN 06/28/20 00:45 06/28/20 08:44 DC Phenyleph/Shark Oil/Min Oil/Petrol (Preparation H) 1 matilda PRN QID PRN 06/28/20 00:45 Ringer's Solution 1,000 ml @ 125 mls/hr Q8H PRN 06/27/20 21:30 06/28/20 00:42 DC Simethicone (Gas-X) 80 mg PRN AFTMEALHC PRN 06/28/20 00:45 Sodium Chloride 1,000 ml @ 100 mls/hr Q10H 06/28/20 15:15 06/29/20 20:54 100 MLS/HR Sodium Chloride (Normal Saline Flush) 10 ml QSHIFT PRN 06/28/20 00:45 Terbutaline Sulfate (Brethine) 0.25 mg 1X PRN PRN 06/27/20 21:30 06/28/20 00:42 DC Zolpidem Tartrate (Ambien) 5 mg PRN QHS PRN 06/28/20 00:45 Lab Laboratory Tests Test 06/29/20 10:45 06/29/20 14:45 White Blood Count 13.3 x10^3/uL (4.0-11.0) Red Blood Count 3.50 x10^6/uL (3.50-5.40) Hemoglobin 10.3 g/dL (12.0-15.5) Hematocrit 31.4 % (36.0-47.0) Mean Corpuscular Volume 90 fL (79-100) Mean Corpuscular Hemoglobin 29 pg (25-35) Mean Corpuscular Hemoglobin Concent 33 g/dL (31-37) Red Cell Distribution Width 15.5 % (11.5-14.5) Platelet Count 188 x10^3/uL (140-400) Neutrophils (%) (Auto) 76 % (31-73) Lymphocytes (%) (Auto) 16 % (24-48) Monocytes (%) (Auto) 8 % (0-9) Eosinophils (%) (Auto) 0 % (0-3) Basophils (%) (Auto) 0 % (0-3) Neutrophils # (Auto) 10.0 x10^3/uL (1.8-7.7) Lymphocytes # (Auto) 2.2 x10^3/uL (1.0-4.8) Monocytes # (Auto) 1.0 x10^3/uL (0.0-1.1) Eosinophils # (Auto) 0.0 x10^3/uL (0.0-0.7) Basophils # (Auto) 0.0 x10^3/uL (0.0-0.2) Sodium Level 137 mmol/L (136-145) Potassium Level 3.9 mmol/L (3.5-5.1) Chloride Level 110 mmol/L (98-107) Carbon Dioxide Level 16 mmol/L (21-32) Anion Gap 11 (6-14) Blood Urea Nitrogen 12 mg/dL (7-20) Creatinine 2.5 mg/dL (0.6-1.0) Estimated GFR (Cockcroft-Gault) 29.7 BUN/Creatinine Ratio 5 (6-20) Glucose Level 92 mg/dL (70-99) Calcium Level 9.0 mg/dL (8.5-10.1) Total Bilirubin 7.6 mg/dL (0.2-1.0) Aspartate Amino Transf (AST/SGOT) 215 U/L (15-37) Alanine Aminotransferase (ALT/SGPT) 247 U/L (14-59) Alkaline Phosphatase 509 U/L (46-116) Total Protein 4.7 g/dL (6.4-8.2) Albumin 1.6 g/dL (3.4-5.0) Albumin/Globulin Ratio 0.5 (1.0-1.7) Urine Collection Type Unknown Urine Color Yellow Urine Clarity Clear Urine pH 6.5 (<5.0-8.0) Urine Specific [place] <=1.005 (1.000-1.030) Urine Protein Negative mg/dL (NEG-TRACE) Urine Glucose (UA) Negative mg/dL (NEG) Urine Ketones (Stick) Negative mg/dL (NEG) Urine Blood Negative (NEG) Urine Nitrite Negative (NEG) Urine Bilirubin Negative (NEG) Urine Urobilinogen Dipstick 0.2 mg/dL (0.2 mg/dL) Urine Leukocyte Esterase Small (NEG) Urine RBC 0 /HPF (0-2) Urine WBC 1-4 /HPF (0-4) Urine Squamous Epithelial Cells Mod /LPF Urine Bacteria Few /HPF (0-FEW) Urine Mucus Slight /LPF Results All relevant outside records, renal labs, imaging studies, telemetry/EKG's were reviewed. Justicifation of Admission Dx: Justifications for Admission: Justification of Admission Dx: Yes Sepsis: Infection TO BAKER MD Jun 30, 2020 10:21
--- NOTE | 2020-06-30 10:48 | RAD ---
EXAM: Head CT without contrast. HISTORY: Confusion. Weakness. TECHNIQUE: Computed tomographic images of the head were obtained without contrast. *One or more of the following individualized dose reduction techniques were utilized for this examina tion: 1. Automated exposure control. 2. Adjustment of the mA and/or kV according to patient size. 3. Use of iterative reconstruction technique. COMPARISON: None. FINDINGS: There is no acute or subacute extra-axial or intraparenchymal hemorrhage. There is no mass effect or midline shift. There is no hydrocephalus. The hall-white matter differentiation pattern is intact. There is mild ethmoid sinus mucosal thickeni ng. The visualized portions the orbits and mastoid air cells are unremarkable. There is no calvarial lesion. IMPRESSION: No acute intracranial findings. Electronically signed by: Tayler Newberry MD (06/30/2020 10:45 AM) [id number]
--- NOTE | 2020-06-30 11:08 | PDOC ---
Infectious Disease Note Subjective Subjective up in chair, though confused and stumbling per RN CARMEN ROS no n/v/d/sob Vital Sign Vital Signs Vital Signs Date Time Temp Pulse Resp B/P (MAP) Pulse Ox O2 Delivery O2 Flow Rate FiO2 06/30/20 07:30 98.1 76 16 111/74 (86) 100 Room Air 98.1 Physical Exam PHYSICAL EXAM GENERAL: Alert, oriented x 3 female, lying in bed comfortably, in no acute distress. HEENT: Normocephalic, atraumatic, anicteric. No thrush. NECK: Supple, no JVD. LUNGS: Clear bilaterally. No wheezing. HEART: S1, S2. No gallops or murmurs. ABDOMEN: Soft, bowel sounds present, nontender, nondistended. EXTREMITIES: No edema, no cyanosis. DERMATOLOGIC: Warm, dry. No generalized rash. NEUROLOGIC: Alert, oriented x 3, grossly nonfocal. PSYCHIATRIC: Cooperative, calm. Labs Lab Laboratory Tests Test 06/29/20 14:45 Urine Collection Type Unknown Urine Color Yellow Urine Clarity Clear Urine pH 6.5 (<5.0-8.0) Urine Specific Edgar <=1.005 (1.000-1.030) Urine Protein Negative mg/dL (NEG-TRACE) Urine Glucose (UA) Negative mg/dL (NEG) Urine Ketones (Stick) Negative mg/dL (NEG) Urine Blood Negative (NEG) Urine Nitrite Negative (NEG) Urine Bilirubin Negative (NEG) Urine Urobilinogen Dipstick 0.2 mg/dL (0.2 mg/dL) Urine Leukocyte Esterase Small (NEG) Urine RBC 0 /HPF (0-2) Urine WBC 1-4 /HPF (0-4) Urine Squamous Epithelial Cells Mod /LPF Urine Bacteria Few /HPF (0-FEW) Urine Mucus Slight /LPF Objective Assessment 1. COVID-19 PCR positive , corrected report now SARS Covid rapid negative ,on RA 2. Leukocytosis, likely reactive. 3. Acute kidney injury.Metabolic acidosis. 4. Abnormal LFTs with hyperbilirubinemia. Etiology unclear 5. day 2, vaginal delivery. Plan Plan of Care 1. Continue supportive care.pt is on RA and has no respiratory symptoms at this time. 2. follow up hepatitis panel and urine for chlamydia and gonorrhea 3. Gastrointestinal and Renal team have been consulted. 4. RPR is negative. 5. Maintain isolation precautions Discussed with RN. MATTHIEU INFANTE MD Jun 30, 2020 11:08
[2020-06-30] MEDS: ASPIRIN ENTERIC COATED 81 MG TABLET.DR. PO SCH (11:11)
[2020-06-30] MEDS: MULTIVITAMIN with MINERAL TABLET. PO SCH (11:11)
[2020-06-30] MEDS: IV NORMAL SALINE 1000ML BAG 1,000 ML IV SCH ×2 (11:11→17:15)
[2020-06-30 11:21] LABS: BASO # 0.1 x10^3/uL (0.0-0.2); BASO % 0 % (0-3); EOS # 0.1 x10^3/uL (0.0-0.7); EOS % 0 % (0-3); HEMATOCRIT 32.5 % (36.0-47.0); HEMOGLOBIN 10.6 g/dL (12.0-15.5); LYMPH # 1.5 x10^3/uL (1.0-4.8); LYMPH % 11 % (24-48); MEAN CORPUSCULAR HEMOGLOBIN 29 pg (25-35); MEAN CORPUSCULAR HGB CONC 33 g/dL (31-37); MEAN CORPUSCULAR VOLUME 89 fL (79-100); MONO # 1.9 x10^3/uL (0.0-1.1); MONO % 14 % (0-9); NEUT # 10.2 x10^3/uL (1.8-7.7); NEUT % 74 % (31-73); PLATELET COUNT 201 x10^3/uL (140-400); RED BLOOD COUNT 3.66 x10^6/uL (3.50-5.40); RED CELL DISTRIBUTION WIDTH 15.7 % (11.5-14.5); WHITE BLOOD COUNT 13.7 x10^3/uL (4.0-11.0)
[2020-06-30 11:28] LABS: CALCIUM 8.9 mg/dL (8.5-10.1); CREATININE 1.9 mg/dL (0.6-1.0); GFR 40.8; POTASSIUM 3.9 mmol/L (3.5-5.1)
[2020-06-30 11:30] VITALS: BP 111/84
[2020-06-30 11:32] LABS: ALBUMIN 1.7 g/dL (3.4-5.0); ALBUMIN/GLOBULIN RATIO 0.5 (1.0-1.7); TOTAL BILIRUBIN 11.1 mg/dL (0.2-1.0); TOTAL PROTEIN 5.1 g/dL (6.4-8.2)
--- NOTE | 2020-06-30 12:57 | PDOC2 ---
GI CONSULT Date of Service: DATE: 06/30/20 TIME: 12:42 Reason For Consult: liver failure HPI: HPI: 20 y/o female s/p rapid vaginal delivery for placental abruption 06/27/20. +COVID since 06/17 - apparently w/ cough. Labs note elevated LFTs and TAMMY. Hepatitis panel was negative. Ammonia was 45, now normal. Plt WNL. US unrevealing - noted normal liver and mentioned contracted GB. Denies liver history. Has some RUQ discomfort that is apparently not new. Unable to elaborate re: this pain. Denies reflux/heartburn, dysphagia, ongoing n/v (had this during but now tolerating diet), diarrhea, constipation (says has stooled since delivery), and GI bleeding. No previous EGD or colonoscopy. No GB, pancreas, or PUD history. Some question of taking ibuprofen during - tells me she took Tylenol. D/w nurse - pt has reported epigastric discomfort and says she stooled last night. Is slow to respond to questioning, noted w/ some confusion/lethargy this morning. PMH: PMH: denies FH: Family History: No pertinent hx (denies liver disease) Social History: Smoke: No ALCOHOL: rare Drugs: None ROS: Difficult to obtain, see HPI. Vitals: Vitals: Vital Signs Date Time Temp Pulse Resp B/P (MAP) Pulse Ox O2 Delivery O2 Flow Rate FiO2 06/30/20 11:30 97.5 82 20 111/84 (93) 100 Room Air 97.5 Labs: Labs: Laboratory Tests Test 06/29/20 14:45 06/30/20 11:00 Urine Collection Type Unknown Urine Color Yellow Urine Clarity Clear Urine pH 6.5 (<5.0-8.0) Urine Specific Bates <=1.005 (1.000-1.030) Urine Protein Negative mg/dL (NEG-TRACE) Urine Glucose (UA) Negative mg/dL (NEG) Urine Ketones (Stick) Negative mg/dL (NEG) Urine Blood Negative (NEG) Urine Nitrite Negative (NEG) Urine Bilirubin Negative (NEG) Urine Urobilinogen Dipstick 0.2 mg/dL (0.2 mg/dL) Urine Leukocyte Esterase Small (NEG) Urine RBC 0 /HPF (0-2) Urine WBC 1-4 /HPF (0-4) Urine Squamous Epithelial Cells Mod /LPF Urine Bacteria Few /HPF (0-FEW) Urine Mucus Slight /LPF White Blood Count 13.7 x10^3/uL (4.0-11.0) Red Blood Count 3.66 x10^6/uL (3.50-5.40) Hemoglobin 10.6 g/dL (12.0-15.5) Hematocrit 32.5 % (36.0-47.0) Mean Corpuscular Volume 89 fL (79-100) Mean Corpuscular Hemoglobin 29 pg (25-35) Mean Corpuscular Hemoglobin Concent 33 g/dL (31-37) Red Cell Distribution Width 15.7 % (11.5-14.5) Platelet Count 201 x10^3/uL (140-400) Neutrophils (%) (Auto) 74 % (31-73) Lymphocytes (%) (Auto) 11 % (24-48) Monocytes (%) (Auto) 14 % (0-9) Eosinophils (%) (Auto) 0 % (0-3) Basophils (%) (Auto) 0 % (0-3) Neutrophils # (Auto) 10.2 x10^3/uL (1.8-7.7) Lymphocytes # (Auto) 1.5 x10^3/uL (1.0-4.8) Monocytes # (Auto) 1.9 x10^3/uL (0.0-1.1) Eosinophils # (Auto) 0.1 x10^3/uL (0.0-0.7) Basophils # (Auto) 0.1 x10^3/uL (0.0-0.2) Sodium Level 136 mmol/L (136-145) Potassium Level 3.9 mmol/L (3.5-5.1) Chloride Level 107 mmol/L (98-107) Carbon Dioxide Level 19 mmol/L (21-32) Anion Gap 10 (6-14) Blood Urea Nitrogen 12 mg/dL (7-20) Creatinine 1.9 mg/dL (0.6-1.0) Estimated GFR (Cockcroft-Gault) 40.8 BUN/Creatinine Ratio 6 (6-20) Glucose Level 75 mg/dL (70-99) Calcium Level 8.9 mg/dL (8.5-10.1) Total Bilirubin 11.1 mg/dL (0.2-1.0) Aspartate Amino Transf (AST/SGOT) 143 U/L (15-37) Alanine Aminotransferase (ALT/SGPT) 207 U/L (14-59) Alkaline Phosphatase 561 U/L (46-116) Ammonia < 10 mcmol/L (11-34) Total Protein 5.1 g/dL (6.4-8.2) Albumin 1.7 g/dL (3.4-5.0) Albumin/Globulin Ratio 0.5 (1.0-1.7) Allergies: Coded Allergies: No Known Drug Allergies (Unverified , 12/29/19) Imaging: Imaging: Abd US 06/28 Impression: No acute findings. No hydronephrosis or shadowing calculi. Head CT 06/30 IMPRESSION: No acute intracranial findings. PE: GEN: NAD HEENT: Atraumatic, PERRL LUNGS: CTAB HEART: RRR ABD: NABS, S/ND, vague mild RUQ discomfort EXTREMITY: No edema SKIN: No rashes, no jaundice NEURO/PSYCH: A & O 3 - slow to respond, not a good historian A/P: A/P: S/p vaginal delivery/placental abruption 06/27/20 Upper abdominal discomfort, lethargy COVID-19 infection Elevated LFTs - bili worse today; AST, ALT, Alk Phos w/ mild improvement - Hepatitis panel negative, normal liver on US Mildly elevated ammonia - resolved Leukocytosis, TAMMY - better Normocytic anemia - stable ?NSAID use -- Reviewed w/ Dr. Hopkins who recommends checking ZEINAB, serial LFTs, and serum bile acids (entered as miscellaneous order) to assess for cholestasis of . CHELSI HOLDEN Jun 30, 2020 12:57
[2020-06-30 14:39] VITALS: BP 116/86
[2020-06-30 22:30] VITALS: BP 115/75
[2020-07-01 05:13] VITALS: BP 104/74
--- NOTE | 2020-07-01 05:30 | NUR ---
Assumed care of jason. Hayley Choudhary RN
--- NOTE | 2020-07-01 08:17 | PDOC ---
PROGRESS NOTES Date of Service DATE: 07/01/20 TIME: 08:11 Subjective Subjective Patient more alert today labs improving. Plan on possible d/c today after PT/OT eval and if ok with consultants. Objective Objective Vital Signs Date Time Temp Pulse Resp B/P (MAP) Pulse Ox O2 Delivery O2 Flow Rate FiO2 07/01/20 05:13 97.6 97 18 104/74 (84) 98 Room Air 97.6 Intake and Output 07/01/20 07:00 Intake Total 260 ml Output Total 1400 ml Balance -1140 ml Intake Oral 260 ml Output Urine Total 1400 ml # Voids 2 # Bowel Movements 1 Physical Exam Abdomen: Normal bowel sounds, Other (uterus firm improve RUQ tenderness) Heart: Regular rate Extremities: No edema General: Alert HEENT: PERRLA, EOMI Lungs: Clear to auscultation Neuro: Normal gait, Strength at 5/5 X4 ext, Reflexes 2+ Assessment Assessment PPD# 4 Metabolic encephalopathy improved pre-eclampsia Help syndrome Covid 19 + ARF improving Increased LFT and t.bili improving S/P suspected Placental abruption Plan Plan of Care Continue supportive care Await PT/OT eval Possible d/c if ok with consultants F/u 2 weeks Comment Review of Relevant I have reviewed the following items cecilia (where applicable) has been applied. Labs Laboratory Tests Test 06/29/20 10:15 06/29/20 10:45 06/29/20 14:45 06/30/20 11:00 Hepatitis A IgM Antibody Nonreactive (Nonreactive) Hepatitis B Surface Antigen Nonreactive (Nonreactive) Hepatitis B Core IgM Antibody Nonreactive (Nonreactive) Hepatitis C IgG Antibody Nonreactive (Nonreactive) White Blood Count 13.3 x10^3/uL (4.0-11.0) 13.7 x10^3/uL (4.0-11.0) Red Blood Count 3.50 x10^6/uL (3.50-5.40) 3.66 x10^6/uL (3.50-5.40) Hemoglobin 10.3 g/dL (12.0-15.5) 10.6 g/dL (12.0-15.5) Hematocrit 31.4 % (36.0-47.0) 32.5 % (36.0-47.0) Mean Corpuscular Volume 90 fL (79-100) 89 fL (79-100) Mean Corpuscular Hemoglobin 29 pg (25-35) 29 pg (25-35) Mean Corpuscular Hemoglobin Concent 33 g/dL (31-37) 33 g/dL (31-37) Red Cell Distribution Width 15.5 % (11.5-14.5) 15.7 % (11.5-14.5) Platelet Count 188 x10^3/uL (140-400) 201 x10^3/uL (140-400) Neutrophils (%) (Auto) 76 % (31-73) 74 % (31-73) Lymphocytes (%) (Auto) 16 % (24-48) 11 % (24-48) Monocytes (%) (Auto) 8 % (0-9) 14 % (0-9) Eosinophils (%) (Auto) 0 % (0-3) 0 % (0-3) Basophils (%) (Auto) 0 % (0-3) 0 % (0-3) Neutrophils # (Auto) 10.0 x10^3/uL (1.8-7.7) 10.2 x10^3/uL (1.8-7.7) Lymphocytes # (Auto) 2.2 x10^3/uL (1.0-4.8) 1.5 x10^3/uL (1.0-4.8) Monocytes # (Auto) 1.0 x10^3/uL (0.0-1.1) 1.9 x10^3/uL (0.0-1.1) Eosinophils # (Auto) 0.0 x10^3/uL (0.0-0.7) 0.1 x10^3/uL (0.0-0.7) Basophils # (Auto) 0.0 x10^3/uL (0.0-0.2) 0.1 x10^3/uL (0.0-0.2) Sodium Level 137 mmol/L (136-145) 136 mmol/L (136-145) Potassium Level 3.9 mmol/L (3.5-5.1) 3.9 mmol/L (3.5-5.1) Chloride Level 110 mmol/L (98-107) 107 mmol/L (98-107) Carbon Dioxide Level 16 mmol/L (21-32) 19 mmol/L (21-32) Anion Gap 11 (6-14) 10 (6-14) Blood Urea Nitrogen 12 mg/dL (7-20) 12 mg/dL (7-20) Creatinine 2.5 mg/dL (0.6-1.0) 1.9 mg/dL (0.6-1.0) Estimated GFR (Cockcroft-Gault) 29.7 40.8 BUN/Creatinine Ratio 5 (6-20) 6 (6-20) Glucose Level 92 mg/dL (70-99) 75 mg/dL (70-99) Calcium Level 9.0 mg/dL (8.5-10.1) 8.9 mg/dL (8.5-10.1) Total Bilirubin 7.6 mg/dL (0.2-1.0) 11.1 mg/dL (0.2-1.0) Aspartate Amino Transf (AST/SGOT) 215 U/L (15-37) 143 U/L (15-37) Alanine Aminotransferase (ALT/SGPT) 247 U/L (14-59) 207 U/L (14-59) Alkaline Phosphatase 509 U/L (46-116) 561 U/L (46-116) Total Protein 4.7 g/dL (6.4-8.2) 5.1 g/dL (6.4-8.2) Albumin 1.6 g/dL (3.4-5.0) 1.7 g/dL (3.4-5.0) Albumin/Globulin Ratio 0.5 (1.0-1.7) 0.5 (1.0-1.7) Urine Collection Type Unknown Urine Color Yellow Urine Clarity Clear Urine pH 6.5 (<5.0-8.0) Urine Specific Mcfarland <=1.005 (1.000-1.030) Urine Protein Negative mg/dL (NEG-TRACE) Urine Glucose (UA) Negative mg/dL (NEG) Urine Ketones (Stick) Negative mg/dL (NEG) Urine Blood Negative (NEG) Urine Nitrite Negative (NEG) Urine Bilirubin Negative (NEG) Urine Urobilinogen Dipstick 0.2 mg/dL (0.2 mg/dL) Urine Leukocyte Esterase Small (NEG) Urine RBC 0 /HPF (0-2) Urine WBC 1-4 /HPF (0-4) Urine Squamous Epithelial Cells Mod /LPF Urine Bacteria Few /HPF (0-FEW) Urine Mucus Slight /LPF Ammonia < 10 mcmol/L (11-34) Laboratory Tests Test 06/30/20 11:00 White Blood Count 13.7 x10^3/uL (4.0-11.0) Red Blood Count 3.66 x10^6/uL (3.50-5.40) Hemoglobin 10.6 g/dL (12.0-15.5) Hematocrit 32.5 % (36.0-47.0) Mean Corpuscular Volume 89 fL (79-100) Mean Corpuscular Hemoglobin 29 pg (25-35) Mean Corpuscular Hemoglobin Concent 33 g/dL (31-37) Red Cell Distribution Width 15.7 % (11.5-14.5) Platelet Count 201 x10^3/uL (140-400) Neutrophils (%) (Auto) 74 % (31-73) Lymphocytes (%) (Auto) 11 % (24-48) Monocytes (%) (Auto) 14 % (0-9) Eosinophils (%) (Auto) 0 % (0-3) Basophils (%) (Auto) 0 % (0-3) Neutrophils # (Auto) 10.2 x10^3/uL (1.8-7.7) Lymphocytes # (Auto) 1.5 x10^3/uL (1.0-4.8) Monocytes # (Auto) 1.9 x10^3/uL (0.0-1.1) Eosinophils # (Auto) 0.1 x10^3/uL (0.0-0.7) Basophils # (Auto) 0.1 x10^3/uL (0.0-0.2) Sodium Level 136 mmol/L (136-145) Potassium Level 3.9 mmol/L (3.5-5.1) Chloride Level 107 mmol/L (98-107) Carbon Dioxide Level 19 mmol/L (21-32) Anion Gap 10 (6-14) Blood Urea Nitrogen 12 mg/dL (7-20) Creatinine 1.9 mg/dL (0.6-1.0) Estimated GFR (Cockcroft-Gault) 40.8 BUN/Creatinine Ratio 6 (6-20) Glucose Level 75 mg/dL (70-99) Calcium Level 8.9 mg/dL (8.5-10.1) Total Bilirubin 11.1 mg/dL (0.2-1.0) Aspartate Amino Transf (AST/SGOT) 143 U/L (15-37) Alanine Aminotransferase (ALT/SGPT) 207 U/L (14-59) Alkaline Phosphatase 561 U/L (46-116) Ammonia < 10 mcmol/L (11-34) Total Protein 5.1 g/dL (6.4-8.2) Albumin 1.7 g/dL (3.4-5.0) Albumin/Globulin Ratio 0.5 (1.0-1.7) Medications Current Medications Ringer's Solution 1,000 ml @ 125 mls/hr Q8H PRN IV hydration Last administered on 06/28/20at 12:20; Start 06/27/20 at 21:30 Acetaminophen (Tylenol) 650 mg PRN Q6HRS PRN PO MILD PAIN, TEMP > 100.5'F; Start 06/27/20 at 21:30; Stop 06/28/20 at 00:42; Status DC Ondansetron HCl (Zofran) 4 mg PRN Q6HRS PRN IVP NAUSEA 1ST CHOICE; Start 06/27/20 at 21:30; Stop 06/28/20 at 00:42; Status DC Sodium Chloride (Normal Saline Flush) 3 ml QSHIFT PRN IV AFTER MEDS AND BLOOD DRAWS; Start 06/27/20 at 21:30; Stop 06/28/20 at 00:42; Status DC Ringer's Solution 1,000 ml @ 125 mls/hr Q8H PRN IV hydration; Start 06/27/20 at 21:30; Stop 06/28/20 at 00:42; Status DC Butorphanol Tartrate (Stadol) 2 mg PRN Q1HR PRN IVP Severe labor pain; Start 06/27/20 at 21:30; Stop 06/28/20 at 00:42; Status DC Fentanyl Citrate (Fentanyl 2ml Vial) 100 mcg PRN Q30MIN PRN IVP Severe pain; Start 06/27/20 at 21:30; Stop 06/28/20 at 00:42; Status DC Terbutaline Sulfate (Brethine) 0.25 mg 1X PRN PRN SQ SEE COMMENTS; Start 06/27/20 at 21:30; Stop 06/28/20 at 00:42; Status DC Lidocaine HCl (Xylocaine 1% Pf 30ml Vial) 30 ml 1X PRN PRN INJ SEE COMMENTS Last administered on 06/27/20at 22:46; Start 06/27/20 at 21:30; Stop 06/28/20 at 00:42; Status DC Oxytocin 500 ml @ 0 mls/hr CONT PRN PRN IV Post delivery bleeding Last administered on 06/27/20at 21:48; Start 06/27/20 at 21:30; Stop 06/28/20 at 00:42; Status DC Ibuprofen (Motrin) 800 mg PRN Q6HRS PRN PO MODERATE PAIN 4-6 Last administered on 06/28/20at 00:01; Start 06/27/20 at 21:30; Stop 06/28/20 at 00:42; Status DC Sodium Chloride (Normal Saline Flush) 10 ml QSHIFT PRN IV AFTER MEDS AND BLOOD DRAWS; Start 06/28/20 at 00:45 Oxytocin 500 ml @ 62.5 mls/hr CONT PRN IV SEE I/O RECORD; Start 06/28/20 at 00:45; Stop 06/28/20 at 08:44; Status DC Acetaminophen (Tylenol) 650 mg PRN Q6HRS PRN PO MILD PAIN / TEMP > 100.3'F; Start 06/28/20 at 00:45 Ibuprofen (Motrin) 800 mg Q8HRS PO Last administered on 06/28/20at 08:31; Start 06/28/20 at 06:00; Stop 06/28/20 at 15:11; Status DC Docusate Sodium (Colace) 100 mg PRN BID PRN PO HARD STOOLS Last administered on 06/29/20at 08:43; Start 06/28/20 at 00:45 Magnesium Hydroxide (Milk Of Magnesia) 2,400 mg PRN DAILY PRN PO CONSTIPATION; Start 06/28/20 at 00:45 Al Hydroxide/Mg Hydroxide (Mylanta Plus Xs) 30 ml PRN Q4HRS PRN PO HEARTBURN / GAS Last administered on 06/29/20at 17:02; Start 06/28/20 at 00:45 Simethicone (Gas-X) 80 mg PRN AFTMEALHC PRN PO GAS / BLOATING; Start 06/28/20 at 00:45 Diphenhydramine HCl (Benadryl) 25 mg PRN Q6HRS PRN PO ITCHING; Start 06/28/20 at 00:45 Benzocaine (Americaine) 1 spray PRN QID PRN TP TOPICAL PAIN; Start 06/28/20 at 00:45 Phenyleph/Shark Oil/Min Oil/Petrol (Preparation H) 1 matilda PRN QID PRN RC RECTAL PAIN; Start 06/28/20 at 00:45 Hydrocortisone (Cortaid) 1 matilda PRN QID PRN TP PERINEAL PAIN; Start 06/28/20 at 00:45 Ferrous Sulfate (Feosol) 325 mg BIDWMEALS PO ; Start 06/29/20 at 08:00 Zolpidem Tartrate (Ambien) 5 mg PRN QHS PRN PO INSOMNIA, MAY REPEAT X1; Start 06/28/20 at 00:45 Info (Do NOT chart on this placeholder) 1 ea 1X PRN PRN MC SEE COMMENTS; Start 06/28/20 at 00:45 Multivitamins (Thera M Plus) 1 tab DAILY PO Last administered on 06/30/20at 11:11; Start 06/28/20 at 09:00 Acetaminophen/ Hydrocodone Bitart (Lortab 5/325) 1 tab PRN Q4HRS PRN PO MILD PAIN 1-3; 2nd choice Last administered on 06/29/20at 20:53; Start 06/28/20 at 00:45 Acetaminophen/ Hydrocodone Bitart (Lortab 5/325) 2 tab PRN Q4HRS PRN PO MODERATE PAIN, SEVERE PAIN; Start 06/28/20 at 00:45 Aspirin (Ecotrin) 81 mg DAILYWBKFT PO Last administered on 06/30/20at 11:11; Start 06/28/20 at 12:00 Magnesium Sulfate 500 ml @ 25 mls/hr Q20H IV Last administered on 06/29/20at 06:06; Start 06/28/20 at 12:00 Magnesium Sulfate 100 ml @ 25 mls/hr 1X ONCE IV Last administered on 06/28/20at 12:17; Start 06/28/20 at 13:00; Stop 06/28/20 at 16:59; Status DC Sodium Chloride 1,000 ml @ 100 mls/hr Q10H IV Last administered on 06/30/20at 11:11; Start 06/28/20 at 15:15 Active Scripts Active Augmentin 875-125 Tablet (Amoxicillin/Potassium Clav) 1 Each Tablet 1 Tab PO BID 10 Days Vitals/I & O Vital Sign - Last 24 Hours 06/30/20 06/30/20 06/30/20 06/30/20 11:11 11:30 14:39 20:00 Temp 97.5 98.2 97.5 98.2 Pulse 82 76 Resp 16 20 18 B/P (MAP) 111/84 (93) 116/86 (96) Pulse Ox 100 100 O2 Delivery Room Air Room Air Room Air Room Air 06/30/20 07/01/20 22:30 05:13 Temp 98.8 97.6 98.8 97.6 Pulse 78 97 Resp 18 18 B/P (MAP) 115/75 (88) 104/74 (84) Pulse Ox 99 98 O2 Delivery Room Air Room Air Intake and Output 06/30/20 06/30/20 07/01/20 15:00 23:00 07:00 Intake Total 60 ml 200 ml Output Total 800 ml 600 ml Balance -740 ml -400 ml Justifications for Admission Other Justification SHAYE READ MD Jul 01, 2020 08:17
[2020-07-01] MEDS ORDERED: DOCU-153 PO (08:26)
[2020-07-01] MEDS ORDERED: OXYC5TAB4 PO (08:26)
[2020-07-01 08:30] VITALS: BP 102/72
[2020-07-01 09:35] LABS: CREATININE 1.6 mg/dL (0.6-1.0); GFR 49.7; POTASSIUM 4.4 mmol/L (3.5-5.1)
[2020-07-01 09:39] LABS: ALBUMIN 1.6 g/dL (3.4-5.0); DIRECT BILIRUBIN 9.2 mg/dL (0.0-0.2); TOTAL BILIRUBIN 11.5 mg/dL (0.2-1.0); TOTAL PROTEIN 4.6 g/dL (6.4-8.2)
--- NOTE | 2020-07-01 09:44 | PDOC ---
Infectious Disease Note Subjective Subjective pt is feeling good, no complaints, walking without any problem ROS ROS no n/v/d/ Vital Sign Vital Signs Vital Signs Date Time Temp Pulse Resp B/P (MAP) Pulse Ox O2 Delivery O2 Flow Rate FiO2 07/01/20 05:13 97.6 97 18 104/74 (84) 98 Room Air 97.6 Physical Exam PHYSICAL EXAM GENERAL: Alert, oriented x 3 female, lying in bed comfortably, in no acute distress. HEENT: Normocephalic, atraumatic, anicteric. No thrush. NECK: Supple, no JVD. LUNGS: Clear bilaterally. No wheezing. HEART: S1, S2. No gallops or murmurs. ABDOMEN: Soft, bowel sounds present, nontender, nondistended. EXTREMITIES: No edema, no cyanosis. DERMATOLOGIC: Warm, dry. No generalized rash. NEUROLOGIC: Alert, oriented x 3, grossly nonfocal. PSYCHIATRIC: Cooperative, calm. Labs Lab Laboratory Tests Test 06/30/20 11:00 07/01/20 09:18 White Blood Count 13.7 x10^3/uL (4.0-11.0) Red Blood Count 3.66 x10^6/uL (3.50-5.40) Hemoglobin 10.6 g/dL (12.0-15.5) Hematocrit 32.5 % (36.0-47.0) Mean Corpuscular Volume 89 fL (79-100) Mean Corpuscular Hemoglobin 29 pg (25-35) Mean Corpuscular Hemoglobin Concent 33 g/dL (31-37) Red Cell Distribution Width 15.7 % (11.5-14.5) Platelet Count 201 x10^3/uL (140-400) Neutrophils (%) (Auto) 74 % (31-73) Lymphocytes (%) (Auto) 11 % (24-48) Monocytes (%) (Auto) 14 % (0-9) Eosinophils (%) (Auto) 0 % (0-3) Basophils (%) (Auto) 0 % (0-3) Neutrophils # (Auto) 10.2 x10^3/uL (1.8-7.7) Lymphocytes # (Auto) 1.5 x10^3/uL (1.0-4.8) Monocytes # (Auto) 1.9 x10^3/uL (0.0-1.1) Eosinophils # (Auto) 0.1 x10^3/uL (0.0-0.7) Basophils # (Auto) 0.1 x10^3/uL (0.0-0.2) Sodium Level 136 mmol/L (136-145) 137 mmol/L (136-145) Potassium Level 3.9 mmol/L (3.5-5.1) 4.4 mmol/L (3.5-5.1) Chloride Level 107 mmol/L (98-107) 107 mmol/L (98-107) Carbon Dioxide Level 19 mmol/L (21-32) 20 mmol/L (21-32) Anion Gap 10 (6-14) 10 (6-14) Blood Urea Nitrogen 12 mg/dL (7-20) 13 mg/dL (7-20) Creatinine 1.9 mg/dL (0.6-1.0) 1.6 mg/dL (0.6-1.0) Estimated GFR (Cockcroft-Gault) 40.8 49.7 BUN/Creatinine Ratio 6 (6-20) Glucose Level 75 mg/dL (70-99) 85 mg/dL (70-99) Calcium Level 8.9 mg/dL (8.5-10.1) 9.0 mg/dL (8.5-10.1) Total Bilirubin 11.1 mg/dL (0.2-1.0) 11.5 mg/dL (0.2-1.0) Aspartate Amino Transf (AST/SGOT) 143 U/L (15-37) 90 U/L (15-37) Alanine Aminotransferase (ALT/SGPT) 207 U/L (14-59) 154 U/L (14-59) Alkaline Phosphatase 561 U/L (46-116) 511 U/L (46-116) Ammonia < 10 mcmol/L (11-34) Total Protein 5.1 g/dL (6.4-8.2) 4.6 g/dL (6.4-8.2) Albumin 1.7 g/dL (3.4-5.0) 1.6 g/dL (3.4-5.0) Albumin/Globulin Ratio 0.5 (1.0-1.7) Direct Bilirubin 9.2 mg/dL (0.0-0.2) Objective Assessment 1. COVID-19 PCR positive , corrected report now SARS Covid rapid negative ,on RA 2. Leukocytosis, likely reactive. 3. Acute kidney injury.Metabolic acidosis. 4. Abnormal LFTs with hyperbilirubinemia. Etiology unclear 5. day 2, vaginal delivery. Plan Plan of Care 1. Continue supportive care.pt is on RA and has no respiratory symptoms at this time. 2. follow up hepatitis panel and urine for chlamydia and gonorrhea 3. Gastrointestinal and Renal team have been consulted. 4. RPR is negative. 5. Maintain isolation precautions ok to d/c home Discussed with YARI. MATTHIEU INFANTE MD Jul 01, 2020 09:44
--- NOTE | 2020-07-01 10:07 | PDOC ---
DATE OF SERVICE DATE: 07/01/20 TIME: 10:06 SUBJECTIVE ROS Pt states she is feeling better, ambulating independently . No new concerns voiced by RN OBJECTIVE Vital Signs Vital Signs Date Time Temp Pulse Resp B/P (MAP) Pulse Ox O2 Delivery O2 Flow Rate FiO2 07/01/20 05:13 97.6 97 18 104/74 (84) 98 Room Air 97.6 I & 0 Intake and Output 07/01/20 07:00 Intake Total 260 ml Output Total 1400 ml Balance -1140 ml Intake Oral 260 ml Output Urine Total 1400 ml # Voids 2 # Bowel Movements 1 PHYSICAL EXAM Physical Exam GENERAL:no acute distress. HEENT: Normocephalic, atraumatic,OM moist NECK: Supple, no JVD. LUNGS: Clear bilaterally. Non labored HEART: S1, S2. ABDOMEN: Soft EXTREMITIES: No edema, no cyanosis. DERMATOLOGIC: Warm, dry. No generalized rash. NEUROLOGIC: Alert, oriented x 3, grossly nonfocal. DIAGNOSIS/ASSESSMENT Assessment & Plan Acute kidney injury: UA benign-no overt proteinuria or RBC's, no wbc or casts . Improving renal function Urine output is adequate It is reported that patient was taking NSAIDs almost all through her . Advised against NSAID's. Recommned close follow up of renal function post DC with PCP . Possible intravascular volume depletion: Mild metabolic acidosis: Change IV fluids to bicarb containing fluids in the form of IV lactated Ringer's Severe hypoalbuminemia with elevated LFTs and elevated bilirubin: Consider GI evaluation. P COVID-19 positive S/p vaginal delivery/placental abruption 06/27/20 Elevated LFTs -- Hepatitis panel negative, normal liver on US COMMENT/RELEVANT DATA Meds Current Medications Medications (Trade) Dose Ordered Sig/Mary Ann Start Time Stop Time Status Last Admin Dose Admin Acetaminophen (Tylenol) 650 mg PRN Q6HRS PRN 06/28/20 00:45 Acetaminophen/ Hydrocodone Bitart (Lortab 5/325) 2 tab PRN Q4HRS PRN 06/28/20 00:45 Al Hydroxide/Mg Hydroxide (Mylanta Plus Xs) 30 ml PRN Q4HRS PRN 06/28/20 00:45 06/29/20 17:02 30 ML Aspirin (Ecotrin) 81 mg DAILYWBKFT 06/28/20 12:00 06/30/20 11:11 81 MG Benzocaine (Americaine) 1 spray PRN QID PRN 06/28/20 00:45 Butorphanol Tartrate (Stadol) 2 mg PRN Q1HR PRN 06/27/20 21:30 06/28/20 00:42 DC Diphenhydramine HCl (Benadryl) 25 mg PRN Q6HRS PRN 06/28/20 00:45 Docusate Sodium (Colace) 100 mg PRN BID PRN 06/28/20 00:45 06/29/20 08:43 100 MG Fentanyl Citrate (Fentanyl 2ml Vial) 100 mcg PRN Q30MIN PRN 06/27/20 21:30 06/28/20 00:42 DC Ferrous Sulfate (Feosol) 325 mg BIDWMEALS 06/29/20 08:00 Hydrocortisone (Cortaid) 1 matilda PRN QID PRN 06/28/20 00:45 Ibuprofen (Motrin) 800 mg Q8HRS 06/28/20 06:00 06/28/20 15:11 DC 06/28/20 08:31 800 MG Info (Do NOT chart on this placeholder) 1 ea 1X PRN PRN 06/28/20 00:45 Lidocaine HCl (Xylocaine 1% Pf 30ml Vial) 30 ml 1X PRN PRN 06/27/20 21:30 06/28/20 00:42 DC 06/27/20 22:46 30 ML Magnesium Hydroxide (Milk Of Magnesia) 2,400 mg PRN DAILY PRN 06/28/20 00:45 Magnesium Sulfate 100 ml @ 25 mls/hr 1X ONCE 06/28/20 13:00 06/28/20 16:59 DC 06/28/20 12:17 25 MLS/HR Multivitamins (Thera M Plus) 1 tab DAILY 06/28/20 09:00 06/30/20 11:11 1 TAB Ondansetron HCl (Zofran) 4 mg PRN Q6HRS PRN 06/27/20 21:30 06/28/20 00:42 DC Oxytocin 500 ml @ 62.5 mls/hr CONT PRN 06/28/20 00:45 06/28/20 08:44 DC Phenyleph/Shark Oil/Min Oil/Petrol (Preparation H) 1 matilda PRN QID PRN 06/28/20 00:45 Ringer's Solution 1,000 ml @ 125 mls/hr Q8H PRN 06/27/20 21:30 06/28/20 00:42 DC Simethicone (Gas-X) 80 mg PRN AFTMEALHC PRN 06/28/20 00:45 Sodium Chloride 1,000 ml @ 100 mls/hr Q10H 06/28/20 15:15 06/30/20 11:11 100 MLS/HR Sodium Chloride (Normal Saline Flush) 10 ml QSHIFT PRN 06/28/20 00:45 Terbutaline Sulfate (Brethine) 0.25 mg 1X PRN PRN 06/27/20 21:30 06/28/20 00:42 DC Zolpidem Tartrate (Ambien) 5 mg PRN QHS PRN 06/28/20 00:45 Lab Laboratory Tests Test 06/30/20 11:00 07/01/20 09:18 White Blood Count 13.7 x10^3/uL (4.0-11.0) Red Blood Count 3.66 x10^6/uL (3.50-5.40) Hemoglobin 10.6 g/dL (12.0-15.5) Hematocrit 32.5 % (36.0-47.0) Mean Corpuscular Volume 89 fL (79-100) Mean Corpuscular Hemoglobin 29 pg (25-35) Mean Corpuscular Hemoglobin Concent 33 g/dL (31-37) Red Cell Distribution Width 15.7 % (11.5-14.5) Platelet Count 201 x10^3/uL (140-400) Neutrophils (%) (Auto) 74 % (31-73) Lymphocytes (%) (Auto) 11 % (24-48) Monocytes (%) (Auto) 14 % (0-9) Eosinophils (%) (Auto) 0 % (0-3) Basophils (%) (Auto) 0 % (0-3) Neutrophils # (Auto) 10.2 x10^3/uL (1.8-7.7) Lymphocytes # (Auto) 1.5 x10^3/uL (1.0-4.8) Monocytes # (Auto) 1.9 x10^3/uL (0.0-1.1) Eosinophils # (Auto) 0.1 x10^3/uL (0.0-0.7) Basophils # (Auto) 0.1 x10^3/uL (0.0-0.2) Sodium Level 136 mmol/L (136-145) 137 mmol/L (136-145) Potassium Level 3.9 mmol/L (3.5-5.1) 4.4 mmol/L (3.5-5.1) Chloride Level 107 mmol/L (98-107) 107 mmol/L (98-107) Carbon Dioxide Level 19 mmol/L (21-32) 20 mmol/L (21-32) Anion Gap 10 (6-14) 10 (6-14) Blood Urea Nitrogen 12 mg/dL (7-20) 13 mg/dL (7-20) Creatinine 1.9 mg/dL (0.6-1.0) 1.6 mg/dL (0.6-1.0) Estimated GFR (Cockcroft-Gault) 40.8 49.7 BUN/Creatinine Ratio 6 (6-20) Glucose Level 75 mg/dL (70-99) 85 mg/dL (70-99) Calcium Level 8.9 mg/dL (8.5-10.1) 9.0 mg/dL (8.5-10.1) Total Bilirubin 11.1 mg/dL (0.2-1.0) 11.5 mg/dL (0.2-1.0) Aspartate Amino Transf (AST/SGOT) 143 U/L (15-37) 90 U/L (15-37) Alanine Aminotransferase (ALT/SGPT) 207 U/L (14-59) 154 U/L (14-59) Alkaline Phosphatase 561 U/L (46-116) 511 U/L (46-116) Ammonia < 10 mcmol/L (11-34) Total Protein 5.1 g/dL (6.4-8.2) 4.6 g/dL (6.4-8.2) Albumin 1.7 g/dL (3.4-5.0) 1.6 g/dL (3.4-5.0) Albumin/Globulin Ratio 0.5 (1.0-1.7) Direct Bilirubin 9.2 mg/dL (0.0-0.2) Results All relevant outside records, renal labs, imaging studies, telemetry/EKG's were reviewed. Justicifation of Admission Dx: Justifications for Admission: Justification of Admission Dx: Yes Sepsis: Infection TO BAKER MD Jul 01, 2020 10:07
--- NOTE | 2020-07-01 12:09 | PDOC ---
Date of Service: DATE: 07/01/20 TIME: 12:06 Subjective: Subjective: Feels better - currently on the phone with father of her child. Objective: Objective: D/w nurse - mental status better - possible DC pending consultants' recs. Vital Signs: Vital Signs Date Time Temp Pulse Resp B/P (MAP) Pulse Ox O2 Delivery O2 Flow Rate FiO2 07/01/20 09:00 Room Air 07/01/20 08:30 98.4 88 18 102/72 (82) 99 98.4 PE: GEN: NAD LUNGS: CTAB HEART: RRR ABD: NABS, S/ND/NT NEURO/PSYCH: A & O 3 - more alert A/P: S/p vaginal delivery/placental abruption 06/27/20 Upper abdominal discomfort, lethargy - better COVID-19 infection - now out of isolation Elevated LFTs - bili from 04/27 to 11.5; AST, ALT, Alk Phos improving - Hepatitis panel negative, normal liver on US, serum bile acids and ZEINAB pending TAMMY - better -- Possible DC today - will return this afternoon w/ Dr. Hopkins. Justicifation of Admission Dx: Justifications for Admission: Justification of Admission Dx: Yes Sepsis: Infection CHELSI HOLDEN Jul 01, 2020 12:09
[2020-07-01] MEDS: FERROUS SULFATE 325 MG TABLET. PO SCH (13:08)
[2020-07-01] MEDS: ASPIRIN ENTERIC COATED 81 MG TABLET.DR. PO SCH (13:08)
[2020-07-01 14:00] VITALS: BP 105/71
[2020-07-01 18:09] LABS: ANA INTERP Negative (.)
--- NOTE | 2020-07-03 13:25 | PDOC3 ---
OB DISCHARGE SUMMARY DATE OF ADMISSION: 06/27/2019 DATE OF DISCHARGE: 07/01/2019 REASON FOR ADMISSION: Onset of labor, SROM INTRAPARTUM PROCEDURES: Foerceps (Low) OPERATIONS: P.P. Eclampsia DISCHARGE INFORMATION: Activity (No sexual activity for 6 weeks.) HOSPITAL COURSE This patient was admitted at term labor. G1, P0 EDC July 03, 2020. She rapidly progressed from 5 cm to complete with significant decelerations at time of delivery infant was delivered with low outlet forceps in OA presentation. Umbilical cord was clamped and transected and was handed off for resuscitation. Placenta was found on peritoneum soon after delivery consistent with abruption of placenta. There was good hemostasis at delivery. Follow-up laboratories showed evidence of preeclampsia with significant renal failure and elevated LFTs. Patient was started on magnesium and consultation with renal medicine GI medicine and infectious disease were done. Patient was known Covid 19 positive. Patient never had any clonus seizure activity hypertension or other evidence of progressive preeclampsia. Patient improved with IV fluids initially patient had evidence of encephalopathy due to liver function abnormalities but again this also improved and patient was back to baseline by day 4 post delivery. At this time patient was discharged home for follow-up in the next 1 to 2 weeks and recheck of liver and renal function. She was discharged on immediate release oxycodone 5 mg every 6 as needed #30. Patient was also to continue vitamins. This is end of hospital course on discharge summary for Tyra Hilton CONDITION AT DISCHARGE Stable SHAYE READ MD Jul 03, 2020 13:25
--- NOTE | 2020-07-04 18:48 | PATHOLOGY ---
[facility] Accession Number: [id number] . 01 Material submitted: . placenta - PLACENTA AND CORD . 01 Clinical history: . LIVE , MALE AT 2222,ABRUPTION OF PLACENTA?, EDC 07/02/20, 39 WKS GESTATION. . 02 Diagnosis: Placenta, method of delivery not specified: - Mature montez placenta weighing 543 grams (at approximately the 65th percentile for a 39-week gestation). - Three vessel umbilical cord, with eccentric insertion into the chorionic plate. - Meconium staining of membranes. - Acute deciduitis. - Chronic lymphocytic deciduitis. - Laminar decidual necrosis. - Recent retroplacental hematoma. - Recent, marginal retroplacental hematoma, with features of the underlying placental parenchyma, consistent with abruptio placenta. - Increased number of nucleated red blood cells within vascular spaces. (KAYODE:dorothy; 07/04/2020) [facility] 07/04/2020 1654 Local . 02 Electronically signed: . Erma Kiran MD, Pathologist NPI- [id number] . 01 Gross description: . The specimen is received in formalin labeled "Tyra Hilton, placenta" and consists of a circular montez placenta measuring 16.7 x 15.5 x 3.9 cm and weighing 543 g after removal of membranes and umbilical cord. The membranes are pink-garcia, thin, translucent with focal retro-membranous clot. The surface is bluegray and well vascularized with an eccentrically inserted 3 vessel umbilical cord, 4.2 cm from edge. The cord measures 21.8 cm in length and up to 1.5 cm in diameter. Received separately is a clamped segment of umbilical cord measuring 17.0 cm in length and up to 2.2 cm in diameter. Both segments of cord are white-garcia with moderate twists and no true knots. The maternal surface shows complete and intact cotyledons with scattered calcifications and focal clot around one periphery measuring 4.0 x 1.5 cm. Sectioning reveals a maroon-red and spongy parenchyma with a few scattered cystic structures containing gelatinous material (less than 1% of parenchyma). Surveillance Systems Analyst sections are submitted as follows: . A1: Surface vessels A2: Umbilical cord and membrane rolls A3-A4: Disc periphery with clot A5: Full-thickness section with cystic structure (SDY; 07/01/2020) SYU/SYU 07/01/2020 1658 Local . 02 Pathologist provided ICD-10: O77.0, Z3A.39, Z37.0 . 02 CPT . 012743 Specimen Comment: A courtesy copy of this report has been sent to [phone] Specimen Comment: Report sent to Performed at: 01 [facility] [address] [facility] [address], [place] [id number] MD Floyd Brown MD Phone: [phone] Performed at: 02 [facility] [address] [id number] MD Paulino Matthews MD Phone: [phone]
== END 2020-07-01 16:03 | disposition home or self-care (01) | DRG 805 ==
LOC: 3 SO LND 21:09 → OBSVTOIN 21:28 → 3 NORTH 06-28 01:59
PROVIDERS: ADMIT Family Medicine; ATTEND Family Medicine
PROC: 10D07Z3 Extraction of Products of Conception, Low Forceps, Via Natural or Artificial Opening (ICD-10-PCS; principal; 2020-06-27)
PROC: 0UQMXZZ Repair Vulva, External Approach (ICD-10-PCS; 2020-06-27)
DX: O45.93 Premature separation of placenta, unspecified, third trimester (principal); G93.41 Metabolic encephalopathy; Z37.0 Single live birth; U07.1 COVID-19; O90.4 Postpartum acute kidney failure; K83.1 Obstruction of bile duct; E87.2 Acidosis; N17.9 Acute kidney failure, unspecified; O26.62 Liver and biliary tract disorders in childbirth; O98.52 Other viral diseases complicating childbirth; O99.355 Diseases of the nervous system complicating the puerperium; E88.09 Other disorders of plasma-protein metabolism, not elsewhere classified; K72.90 Hepatic failure, unspecified without coma; O76 Abnormality in fetal heart rate and rhythm complicating labor and delivery; Z3A.39 39 weeks gestation of pregnancy; O71.82 Other specified trauma to perineum and vulva; O99.285 Endocrine, nutritional and metabolic diseases complicating the puerperium; D64.9 Anemia, unspecified; O90.81 Anemia of the puerperium; O26.63 Liver and biliary tract disorders in the puerperium; O14.25 HELLP syndrome, complicating the puerperium
CPT/HCPCS: 36415; 70450; 76700; 80048; 80053; 80076; 80307; 81001; 82140; 83735; 85007; 85025; 86038; 86592; 86705; 86709; 86803; 86850; 86900; 86901; 87077; 87086; 87186; 87340; 87426; 87491; 87591; G0379; J2590; J3475; J3490; J7030; J7120; U0003; G0378